=== PATIENT | female | born 1990 | race Asian ===

== ENCOUNTER 2022-07-02 11:06 | Outpatient (CLI) | payer BC, SELFPAY | END 2022-07-02 11:07 | disposition home or self-care (01) | PROVIDERS: PCP Nurse Practitioner Family; Visit Provider Nurse Practitioner Family | DX: D50.9 Iron deficiency anemia, unspecified (principal) | CPT/HCPCS: 83540; 83550; 84443 ==

== ENCOUNTER 2022-10-07 13:18 | Outpatient (CLI) | payer BC, SELFPAY ==
--- NOTE | 2022-10-07 13:00 | CRLHL7_ITS ---
For Patients: As a result of the Century Cures Act, medical imaging exams and procedure reports are released immediately into your electronic medical record. You may view this report before your referring provider. If you have questions, please contact your health care provider. INDICATION: First trimester scan, establish dates. COMPARISON: None. TECHNIQUE: Real-time castillo-scale imaging of the pelvis was performed. FINDINGS: Sonographic imaging demonstrates a single living intrauterine gestation. The embryo demonstrates a regular cardiac rate measuring 176 beats per minute. The embryo`s crown-rump length measurement of 3.3 cm corresponds to a gestational age of 10 weeks 2 days with a sonographic due date of 05/03/2023. There is a normal-appearing yolk sac. There are no gross abnormalities noted within the embryo at this early state of development. The gestational sac has a normal appearance. There is a 2.6 x 2.2 x 1.9 cm right-sided perigestational hemorrhage. The amount of fluid within the sac appears appropriate for gestational age. The cervix is closed. The myometrium appears normal. The ovaries are of normal size. Corpus luteal cyst left ovary. There are no suspicious fluid collections noted in the cul-de-sac. IMPRESSION: Single living intrauterine with sonographic gestational age measuring 10 weeks 2 days and sonographic due date 05/03/2023. Right-sided subchorionic hemorrhage measuring 2.6 x 2.2 x 1.9 cm. Dictated by Nemesio Bennett MD @ 10/07/2022 3:23:35 PM (Electronically Signed)
== END 2022-10-07 13:19 | disposition home or self-care (01) ==
LOC: US 13:19
PROVIDERS: PCP Nurse Practitioner Family; Visit Provider Registered Nurse
DX: Z34.91 Encounter for supervision of normal pregnancy, unspecified, first trimester (principal); O20.9 Hemorrhage in early pregnancy, unspecified; Z3A.10 10 weeks gestation of pregnancy
CPT/HCPCS: 76801; 86703; 86803; 86850; 86900; 86901; 87340; 87491; 87591

== ENCOUNTER 2022-10-07 14:41 | Outpatient (CLI) | payer BC, SELFPAY ==
[2022-10-07 18:47] LABS: Chlamydia DNA Amplified* NOT DETECTED (No Detected); GC DNA Amplified* NOT DETECTED (No Detected)
== END 2022-10-07 14:42 | disposition home or self-care (01) ==
PROVIDERS: PCP Nurse Practitioner Family; Visit Provider Registered Nurse
DX: Z34.91 Encounter for supervision of normal pregnancy, unspecified, first trimester (principal); Z3A.10 10 weeks gestation of pregnancy
CPT/HCPCS: 86592; 86703; 86762; 86787; 86803; 86850; 86900; 86901; 87086; 87340; 87491; 87591

== ENCOUNTER 2022-12-10 09:15 | Outpatient (CLI) | payer BC, SELFPAY ==
--- NOTE | 2022-12-10 09:15 | CRLHL7_ITS ---
For Patients: As a result of the Century Cures Act, medical imaging exams and procedure reports are released immediately into your electronic medical record. You may view this report before your referring provider. If you have questions, please contact your health care provider. INDICATION: Evaluate anatomy. COMPARISON: 10.07.22 TECHNIQUE: Real time castillo scale imaging of the fetus was performed as well as color Doppler analysis of the umbilical vessels. FINDINGS: Sonographic imaging demonstrates a single living intrauterine gestation. Fetus demonstrates a regular cardiac rate of 154 beats per minute. Fetus has a longitudinal breech position. The placenta lies posteriorly with complete placenta previa. Amniotic fluid volume appears normal. Single deepest vertical pocket: 4.1 cm. The cervix is closed and measures 3.5 cm in length. The composite ultrasound gestational age is calculated at 18 weeks 4 days with an estimated sonographic due date of 05/09/2023. The estimated weight is 242 grams which lies at the less than 3rd %. The following biometric measurements were obtained: Biparietal diameter: 4.0 cm/18 weeks 0 days less than 3rd% Head circumference: 15.6 cm/18 weeks 4 days 3rd% Abdominal circumference: 13.2 cm/18 weeks 5 days 13th% Femur length: 2.7 cm/18 weeks 2 days 4th% The HC/AC ratio measures: 1.18 range (1.09-1.27) On anatomic survey, there is a normal appearance of the cerebral ventricles, cavum septi pellucidi, cisterna magna and cerebellum. The nose, lips, and facial profile appear normal. The cervical, thoracic and lumbar spine are well visualized and appear normal. There is a normal four-chamber heart view and the left and right ventricular outflow tracts appear normal. The diaphragm and stomach appear normal. The kidneys and bladder also appear normal. There is a normal three-vessel cord and cord insertion site. The four extremities appear normal. IMPRESSION: Sonographic gestational age 18 weeks 4 days and sonographic due date 05/09/2023. Sonographic age 9 days behind the clinical age. No intrinsic abnormalities noted on anatomic survey. Posterior placenta with complete previa. Estimated weight less than 3rd percentile. Abdominal circumference 13th percentile. BPD less than 3rd percentile, HC 3rd percentile, FL 4th percentile. Dictated by Nemesio Bennett MD @ 12/10/2022 10:35:06 AM (Electronically Signed)
== END 2022-12-10 09:16 | disposition home or self-care (01) ==
LOC: US 09:15
PROVIDERS: PCP Nurse Practitioner Family; Visit Provider Advanced Practice Midwife
DX: Z34.92 Encounter for supervision of normal pregnancy, unspecified, second trimester (principal); Z3A.19 19 weeks gestation of pregnancy
CPT/HCPCS: 76805; 76817; 76820

== ENCOUNTER 2023-02-15 11:29 | Outpatient (CLI) | payer BC, SELFPAY | END 2023-02-15 11:30 | disposition home or self-care (01) | LOC: NFLDREF 11:32 | PROVIDERS: PCP Nurse Practitioner Family; Visit Provider Advanced Practice Midwife | DX: Z34.93 Encounter for supervision of normal pregnancy, unspecified, third trimester (principal); Z3A.29 29 weeks gestation of pregnancy | CPT/HCPCS: 86592; 86850 ==

== ENCOUNTER 2023-02-23 08:29 | Outpatient (CLI) | payer BC, SELFPAY | END 2023-02-23 08:30 | disposition home or self-care (01) | LOC: NFLDREF 02-26 18:39 | PROVIDERS: PCP Nurse Practitioner Family; Referring Provider Nurse Practitioner Family; Visit Provider Advanced Practice Midwife | DX: Z34.92 Encounter for supervision of normal pregnancy, unspecified, second trimester (principal) | CPT/HCPCS: 82951; 82952 ==

== ENCOUNTER 2023-03-24 11:34 | Outpatient (CLI) | payer BC, SELFPAY | END 2023-03-24 11:35 | disposition home or self-care (01) | LOC: NFLDREF 03-26 10:28 | PROVIDERS: PCP Nurse Practitioner Family; Referring Provider Nurse Practitioner Family; Visit Provider Advanced Practice Midwife | DX: Z34.93 Encounter for supervision of normal pregnancy, unspecified, third trimester (principal) | CPT/HCPCS: 82728 ==

== ENCOUNTER 2023-04-08 14:02 | Outpatient (CLI) | payer BC, SELFPAY ==
--- NOTE | 2023-04-08 14:00 | CRLHL7_ITS ---
For Patients: As a result of the Century Cures Act, medical imaging exams and procedure reports are released immediately into your electronic medical record. You may view this report before your referring provider. If you have questions, please contact your health care provider. INDICATION: growth restriction COMPARISON: none TECHNIQUE: Real time castillo scale imaging of the fetus was performed as well as color Doppler and spectral Doppler analysis of the umbilical artery. Without non-stress testing. FINDINGS: Sonographic imaging demonstrates a single living intrauterine gestation. Fetus demonstrates a regular cardiac rate of 165 beats per minute. Fetus has a vertex position. The umbilical artery demonstrates adequate diastolic blood flow. The S/D ratio measures 2.4. The amniotic fluid volume appears normal and there is a single deepest pocket measurement of 6.3 cm. The fetus was active and demonstrated normal breathing movements. There was normal flexion and extension of the trunk and extremities. IMPRESSION: Normal biophysical profile score of 8 out of 8. Dictated by Nemesio Bennett MD @ 04/08/2023 3:06:27 PM (Electronically Signed)
== END 2023-04-08 14:03 | disposition home or self-care (01) ==
LOC: US 14:03
PROVIDERS: PCP Nurse Practitioner Family; Visit Provider Advanced Practice Midwife
DX: O36.5930 Maternal care for other known or suspected poor fetal growth, third trimester, not applicable or unspecified (principal)
CPT/HCPCS: 76819; 76820; 82728

== ENCOUNTER 2023-04-08 15:30 | Outpatient (CLI) | payer BC, SELFPAY ==
[2023-04-09 13:36] LABS: Strep B DNA Probe Positive (Negative); Strep B Susceptibility Needed? No
== END 2023-04-08 15:31 | disposition home or self-care (01) ==
LOC: NFLDREF 15:31
PROVIDERS: PCP Nurse Practitioner Family; Visit Provider Advanced Practice Midwife
DX: Z34.93 Encounter for supervision of normal pregnancy, unspecified, third trimester (principal)
CPT/HCPCS: 82728; 87081; 87653

== ENCOUNTER 2023-04-14 08:43 | Outpatient (CLI) | payer BC, SELFPAY ==
--- NOTE | 2023-04-14 08:45 | CRLHL7_ITS ---
For Patients: As a result of the Century Cures Act, medical imaging exams and procedure reports are released immediately into your electronic medical record. You may view this report before your referring provider. If you have questions, please contact your health care provider. INDICATION: IUGR TECHNIQUE: Limited transabdominal two-dimensional castillo-scale ultrasound examination. COMPARISON: 04/08/2023 FINDINGS: There is a living fetus in vertex lie with gestational age of 37 weeks 2 days by LMP with EDC 05/03/2023. The biophysical profile score is 8/8. The heart rate is measured at 131 beats per minute and the rhythm appears regular. The amniotic fluid volume is within normal limits with several deep spot of 6.9 cm. The placenta is posterior and superior to the cervical os. There is no evidence of previa. Cord arterial S/D = 2.8. IMPRESSION: 1. Living fetus in vertex lie with gestational age of 37 weeks 2 days by LMP and EDC of 05/03/2023. 2. Biophysical profile score is 8/8. Dictated by Ganesh Strong MD @ 04/15/2023 2:46:11 PM (Electronically Signed)
== END 2023-04-14 08:44 | disposition home or self-care (01) ==
LOC: US 08:44
PROVIDERS: PCP Nurse Practitioner Family; Visit Provider Advanced Practice Midwife
DX: O36.5930 Maternal care for other known or suspected poor fetal growth, third trimester, not applicable or unspecified (principal); Z3A.37 37 weeks gestation of pregnancy
CPT/HCPCS: 76819; 76820

== ENCOUNTER 2023-04-25 19:13 | Inpatient (IN) | payer BC, SELFPAY ==
--- OUTSIDE RECORDS SUMMARY | 2023-04-25 18:26 | XMS_ITS | Referral Summary ---
Author Name Unknown Organization [place] Address [address] [facility] [place] [address] Care Team Providers Care Radiation Therapy Technician Name Role Phone No Ref-Primary, Physician Primary Care Provider Odalys Holguin MD Unavailable Encounters Date Type Department Care Team Description 04/21/2023 Travel 04/21/2023 9:58 AM ANHYDROUS AMMONIA PRODUCTION SUPERVISOR - 04/21/2023 11:59 PM ANHYDROUS AMMONIA PRODUCTION SUPERVISOR Hospital Encounter [facility] Maternal Medicine [facility] [address] [place] [address] Juan Alberto Bañuelos MD affected by growth restriction Discharge Disposition: Home or Self Care 04/21/2023 9:45 AM ANHYDROUS AMMONIA PRODUCTION SUPERVISOR Office Visit [facility] Medicine [facility] [address] [place] [address] Juan Alberto Bañuelos MD affected by growth restriction (Primary Dx) 04/01/2023 Travel 04/01/2023 10:46 AM ANHYDROUS AMMONIA PRODUCTION SUPERVISOR - 04/01/2023 11:59 PM ANHYDROUS AMMONIA PRODUCTION SUPERVISOR Hospital Encounter [facility] Maternal Medicine [facility] [address] [place] [address] Annel Holguin MD Yamamura, Yasuko, MD affected by growth restriction Discharge Disposition: Home or Self Care 04/01/2023 10:30 AM ANHYDROUS AMMONIA PRODUCTION SUPERVISOR Office Visit [facility] Maternal Medicine [facility] [address] [place] [address] Juan Alberto Bañuelos MD Yamamura, Yasuko, MD affected by growth restriction (Primary Dx) 03/24/2023 Travel 03/24/2023 8:16 AM ANHYDROUS AMMONIA PRODUCTION SUPERVISOR - 03/24/2023 11:59 PM ANHYDROUS AMMONIA PRODUCTION SUPERVISOR Hospital Encounter [facility] [place] [address] [place] [address] Annel Holguin MD Rauk, Phillip Neil, MD affected by growth restriction Discharge Disposition: Home or Self Care 03/24/2023 8:15 AM ANHYDROUS AMMONIA PRODUCTION SUPERVISOR Office Visit [facility] Medicine [facility] [address] [place] [address] Juan Alberto Bañuelos MD affected by growth restriction (Primary Dx) 03/19/2023 Travel 03/19/2023 2:33 PM ANHYDROUS AMMONIA PRODUCTION SUPERVISOR - 03/19/2023 11:59 PM ANHYDROUS AMMONIA PRODUCTION SUPERVISOR Hospital Encounter [facility] Maternal Medicine [facility] [address] [place] [address] Annel Holguin MD Jones, Rihcard Russo MD affected by growth restriction Discharge Disposition: Home or Self Care 03/19/2023 2:30 PM ANHYDROUS AMMONIA PRODUCTION SUPERVISOR Office Visit [facility] Medicine [facility] [address] [place] [address] Juan Alberto Bañuelos MD Jones, Richard Russo MD affected by growth restriction 03/10/2023 Travel 03/10/2023 11:11 AM ANHYDROUS AMMONIA PRODUCTION SUPERVISOR - 03/10/2023 11:59 PM ANHYDROUS AMMONIA PRODUCTION SUPERVISOR Hospital Encounter [facility] Maternal Medicine [facility] [address] [place] [address] Lyssa Beck MD Burn, Martina, MD affected by growth restriction Discharge Disposition: Home or Self Care 03/10/2023 11:15 AM ANHYDROUS AMMONIA PRODUCTION SUPERVISOR Office Visit [facility] Medicine [facility] [address] [place] [address] Juan Alberto Bañuelos MD Burn, Martina, MD affected by growth restriction 03/03/2023 Travel 03/03/2023 1:25 PM ANHYDROUS AMMONIA PRODUCTION SUPERVISOR - 03/03/2023 11:59 PM ANHYDROUS AMMONIA PRODUCTION SUPERVISOR Hospital Encounter [facility] Maternal Medicine [facility] [address] [place] [address] Lyssa Beck MD Rauk, Phillip Neil, MD affected by growth restriction Discharge Disposition: Home or Self Care 03/03/2023 1:45 PM ANHYDROUS AMMONIA PRODUCTION SUPERVISOR Office Visit [facility] Maternal Medicine [place] [address] [place] [address] Juan Alberto Bañuelos MD affected by growth restriction (Primary Dx) 02/24/2023 Travel 02/24/2023 1:30 PM ANHYDROUS AMMONIA PRODUCTION SUPERVISOR - 02/24/2023 11:59 PM ANHYDROUS AMMONIA PRODUCTION SUPERVISOR Hospital Encounter [facility] Medicine [place] [address] [place] [address] Lyssa Beck MD Burn, Sabrina, MD affected by growth restriction Discharge Disposition: Home or Self Care 02/24/2023 2:15 PM ANHYDROUS AMMONIA PRODUCTION SUPERVISOR Office Visit [facility] Maternal Medicine [place] [address] [place] [address] Juan Alberto Bañuelos MD Burn, Sabrina, MD affected by growth restriction 02/17/2023 Travel 02/17/2023 10:45 AM ANHYDROUS AMMONIA PRODUCTION SUPERVISOR Office Visit [facility] Maternal Medicine [place] [address] [place] [address] Juan Alberto Bañuelos MD Yamamura, Yasuko, MD affected by growth restriction (Primary Dx) 02/17/2023 10:13 AM ANHYDROUS AMMONIA PRODUCTION SUPERVISOR - 02/17/2023 11:59 PM ANHYDROUS AMMONIA PRODUCTION SUPERVISOR Hospital Encounter [facility] Maternal Medicine [place] [address] [place] [address] Juan Alberto Bañuelos MD Yamamura, Yasuko, MD affected by growth restriction Discharge Disposition: Home or Self Care 01/27/2023 Travel 01/27/2023 10:41 AM CDT - 01/27/2023 11:59 PM CDT Hospital Encounter [facility] Maternal Medicine [facility] [address] [place] [address] Juan Alberto Bañuelos MD affected by growth restriction Discharge Disposition: Home or Self Care 01/27/2023 10:30 AM CDT Office Visit [facility] Medicine [facility] [address] [facility] [address] [place] [address] JuanA lberto Bañuelos MD affected by growth restriction (Primary Dx) from Last 3 Months Allergies No known active allergies Medications Medication Sig Dispensed Refills Start Date End Date Status vitamin iron-folic acid 27mg-0.8mg ( S) 27 mg iron- 800 mcg Tab tablet [ VITAMIN IRON-FOLIC ACID 27MG-0.8MG ( S) 27 MG IRON- 800 MCG TAB TABLET] Take 1 tablet by mouth daily. 0 09/21/2016 Active Social History Tobacco Use Types Packs/Day Years Used Date Smoking Tobacco: Never Tobacco Cessation:Counseling Given: Not Answered Adolescent Education Answer Date Record ed Getting School Help Needed Not on file 12/26 Estimated Date of Delivery Comme nts Yes 05/03/2023 Based on Ultraso und Sex and Gender Information Value Date Recorded Sex Assigned at Not on file Gender Identity Not on file Sexual Orientation Not on file Last Filed Vital Signs Vital Sign Reading Time Taken Comments Blood Pressure 87/47 04/21/2023 10:27 AM ANHYDROUS AMMONIA PRODUCTION SUPERVISOR Pulse 56 04/21/2023 10:27 AM ANHYDROUS AMMONIA PRODUCTION SUPERVISOR Temperature - - Respiratory Rate - - Oxygen Saturation 99% 04/21/2023 10:27 AM ANHYDROUS AMMONIA PRODUCTION SUPERVISOR Inhaled Oxygen Concentration - - Weight 50.8 kg (112 lb) 08/05/2017 3:14 PM CDT Height - - Body Mass Index - - Plan of Treatment Not on file Procedures Procedure Name Priority Date/Time Associated Diagnosis Comments [facility] COMPREHENSIVE SINGLE F/U Routine 04/21/2023 10:50 AM ANHYDROUS AMMONIA PRODUCTION SUPERVISOR affected by growth restriction [facility] US COMPREHENSIVE SINGLE F/U Routine 04/01/2023 12:09 PM ANHYDROUS AMMONIA PRODUCTION SUPERVISOR affected by growth restriction [facility] US OB LIMITED SINGLE/MULTIPLE Routine 03/24/2023 8:56 AM ANHYDROUS AMMONIA PRODUCTION SUPERVISOR affected by growth restriction [facility] US OB LIMITED SINGLE/MULTIPLE Routine 03/19/2023 3:22 PM ANHYDROUS AMMONIA PRODUCTION SUPERVISOR affected by growth restriction [facility] US COMPREHENSIVE SINGLE F/U Routine 03/10/2023 12:16 PM ANHYDROUS AMMONIA PRODUCTION SUPERVISOR affected by growth restriction [facility] US OB LIMITED SINGLE/MULTIPLE Routine 03/03/2023 2:16 PM ANHYDROUS AMMONIA PRODUCTION SUPERVISOR affected by growth restriction [facility] US OB LIMITED SINGLE/MULTIPLE Routine 02/24/2023 2:33 PM ANHYDROUS AMMONIA PRODUCTION SUPERVISOR affected by growth restriction [facility] US COMPREHENSIVE SINGLE F/U Routine 02/17/2023 11:17 AM ANHYDROUS AMMONIA PRODUCTION SUPERVISOR affected by growth restriction [facility] US COMPREHENSIVE SINGLE F/U Routine 01/27/2023 11:36 AM CDT affected by growth restriction from Last 3 Months Results * Maternal US Comprehensive Single F/U (04/21/2023 10:50 AM ANHYDROUS AMMONIA PRODUCTION SUPERVISOR) Only the most recent of5 resultswithin the time period is included. Anatomical Region Laterality Modality Ultrasound 04/21/2023 10:1 3 AM ANHYDROUS AMMONIA PRODUCTION SUPERVISOR Impressions 04/21/2023 10:54 AM ANHYDROUS AMMONIA PRODUCTION SUPERVISOR IMPRESSION ----- 1) Growth parameters and estimated weight were consistent with asymmetric intrauterine growth restriction. 2) The anatomic survey is limited due to late gestational age. 3) Normal amniotic fluid volume. 4) Normal umbilical artery doppler flow studies. 5) Reactive NST without decelerations. Narrative 04/21/2023 10:54 AM ANHYDROUS AMMONIA PRODUCTION SUPERVISOR ?Comp Follow Up ----- Pat. Name: CESAR ARROYO ? Study Date: ??04/21/2023 10:13am Pat. NO: ??[id number] ?Referring ??MD: TORITO MUSTAFA Site: [facility] ? Tennis Net Maker: Elissa Clarke RDMS : ??1990 ?Age: ?? 32 ----- INDICATION ----- growth restriction (FGR) METHOD ----- Transabdominal ultrasound examination. View: Sufficient ----- [place] . Number of fetuses: 1 DATING ----- ? Date ?Details ?Gest. age ?KENDRICK LMP ?07/24/2022 ?Cycle: irregular cycle ? 38 w + 5 d ? 04/30/2023 Prior assessment ? 10/07/2022 ?GA: 10 w + 2 d ? 38 w + 2 d ? 05/03/2023 U/S ? 04/21/2023 ? based upon AC, BPD, Femur, HC ?35 w + 5 d ? 05/21/2023 Assigned dating ?Dating performed on 04/21/2023, based on the prior assessment (on 10/07/2022) ?38 w + 2 d ? 05/03/2023 GENERAL EVALUATION ----- Cardiac activity present. FHR 136 bpm. movements present. Presentation cephalic. Placenta Posterior. Umbilical cord 3 vessel cord. Amniotic fluid Amount of AF: normal. MVP 7.6 cm. BIOMETRY ----- Main Biometry: BPD ?86.3 ?mm ? 34w 6d ?Hadronald OFArlyn ?116.9 ?mm ?-/- ?Nicolaides HC ?324.0 ?mm ?36w 5d ?Hadlock AC ?315.8 ?mm ?35w 4d ?6% ?Hadlock Femur ?69.0 ? mm ?35w 3d ?Hadlock Humerus ?60.7 ?mm ? 35w 1d ?Aminah Weight Calculation: EFW ? 2,702 ?g ? 9% ? Hadlock EFW (lb,oz) ? 5 lb 15 ? oz EFW by ?Hadlock ([id number]) Head / Face / Neck Biometry: Tattoo Designer ? 2.8 ? mm ANATOMY ----- The following structures appear normal: Head / Neck ? Cranium. Head size. Head shape. Lateral ventricles. Midline falx. Cavum septi pellucidi. Thalami. Face ? Lips. Profile. Nose. Heart / Thorax ?4-chamber view. RVOT view. LVOT view. 4-[id number]-qykbxrj view. ? Diaphragm. Abdomen ? Stomach. Kidneys. Bladder. Spine ?Cervical spine. Thoracic spine. Lumbar spine. Sacral spine. The following structures were documented previously: Head / Neck ? Cerebellum. Cisterna magna. Gender: female. DOPPLER ----- Umbilical Artery: normal PI ?1.11 ?95% ? Jesus HR ?136 ? bpm MATERNAL STRUCTURES ----- Cervix ?Not visualized Right Ovary ?Not examined Left Ovary ?Not examined NON STRESS TEST ----- NST interpretation: reactive. Test duration 20 min. Baseline FHR 135 bpm. Baseline variability: moderate. Accelerations: present. Decelerations: absent. Uterine activity: absent. Acoustic stimulation: no RECOMMENDATION ----- We discussed the findings on today's ultrasound with the patient. Return to primary provider for continued care. Thank-you for the opportunity to participate in the care of this patient. If you have questions regarding today's evaluation or if we can be of further service, please contact the [facility]. anomalies may be present but not detected Procedure Note Juan Alberto Bañuelos MD - 04/21/2023 Comp Follow Up ----- Pat. Name: CESAR ARROYO Study Date: 04/21/2023 10:13am Pat. NO: [id number] Referring MD: TORITO MUSTAFA Site: [facility] Tennis Net Maker: Elissa Clarke RDMS : 1990 Age: 32 ----- INDICATION ----- growth restriction (FGR) METHOD ----- Transabdominal ultrasound examination. View: Sufficient ----- [place] . Number of fetuses: 1 DATING ----- DateDetailsGest. age KENDRICK LMP 07/24/2022ycle: irregular cycle38 w + 5 d 04/30/2023 Prior assessment 10/07/2022 GA: 10 w+ 2 d38 w + 2 d 05/03/2023 U/S 04/21/2023ased upon AC, BPD, Femur, HC35 w + 5 d 05/21/2023 Assigned dating Dating performed on 04/21/2023, based onthe prior assessment (on 10/07/2022) 38 w + 2 05/03/2023 GENERAL EVALUATION ----- Cardiac activity present. FHR 136 bpm. movements present. Presentation cephalic. Placenta Posterior. Umbilical cord 3 vessel cord. Amniotic fluid Amount of AF: normal. MVP 7.6 cm. BIOMETRY ----- Main Biometry: BPD 86.3 mm34w 6d Hadlock OFD 116.9 mm-/- Nicolaides HC 324.0 mm36w 5d Hadlock AC 315.8 mm35w 4d 6% Hadlock Femur 69.0 mm35w 3d Hadlock Humerus 60.7 mm35w 1d Aminah Weight Calculation: EFW 2,702 g9% Hadlock EFW (lb,oz) 5 lb 15 oz EFW by Hadlock ([id number]) Head / Face / Neck Biometry: Tattoo Designer 2.8 mm ANATOMY ----- The following structures appear normal: Head / Neck Cranium. Head size. Head shape.Lateral ventricles. Midline falx. Cavum septi pellucidi. Thalami. Face Lips. Profile. Nose. Heart / Thorax 4-chamber view. RVOT view. LVOT view.[id number] view. Diaphragm. Abdomen Stomach. Kidneys. Bladder. Spine Cervical spine. Thoracic spine.Lumbar spine. Sacral spine. The following structures were documented previously: Head / Neck Cerebellum. Cisterna magna. Gender: female. DOPPLER ----- Umbilical Artery: normal PI 1.1195% Jesus HR 136 bpm MATERNAL STRUCTURES ----- Cervix Not visualized Right Ovary Not examined Left Ovary Not examined NON STRESS TEST ----- NST interpretation: reactive. Test duration 20 min. Baseline FHR 135 bpm.Baseline variability: moderate. Accelerations: present. Decelerations:absent. Uterine activity: absent. Acoustic stimulation: no RECOMMENDATION ----- We discussed the findings on today's ultrasound with the patient. Return to primary provider for continued care. Thank-you for the opportunity to participate in the care of this patient.If you have questions regarding today's evaluation or if we can be offurther service, please contact the [facility]. anomalies may be present but not detected IMPRESSION ----- 1) Growth parameters and estimated weight were consistent withasymmetric intrauterine growth restriction. 2) The anatomic survey is limited due to late gestational age. 3) Normal amniotic fluid volume. 4) Normal umbilical artery doppler flow studies. 5) Reactive NST without decelerations. Lyssa Beck MD [facility] US ORDERABLE S * Maternal US OB Limited Single/Multiple (03/24/2023 8:56 AM ANHYDROUS AMMONIA PRODUCTION SUPERVISOR) Only the most recent of4 resultswithin the time period is included. Anatomical Region Laterality Modality Ultrasound 03/24/2023 8:43 AM ANHYDROUS AMMONIA PRODUCTION SUPERVISOR Impressions 03/24/2023 8:59 AM ANHYDROUS AMMONIA PRODUCTION SUPERVISOR IMPRESSION ----- 1) Normal amniotic fluid volume. 2) Normal umbilical artery doppler flow studies. 3) Reactive NST without decelerations. Narrative 03/24/2023 8:59 AM ANHYDROUS AMMONIA PRODUCTION SUPERVISOR ?Limited ----- Pat. Name: CESAR ARROYO ? Study Date: ??03/24/2023 8:43am Pat. NO: ??[id number] ?Referring ??MD: TORITO MUSTAFA Site: [facility] ? Tennis Net Maker: Trisha Calle RDMS : ??1990 ?Age: ?? 32 ----- INDICATION ----- Growth Restriction (FGR) METHOD ----- Transabdominal ultrasound examination. View: Sufficient ----- [place] . Number of fetuses: 1 DATING ----- ? Date ?Details ?Gest. age ?KENDRICK LMP ?07/24/2022 ?Cycle: regular cycle ?34 w + 5 d ? 04/30/2023 Prior assessment ? 10/07/2022 ?GA: 10 w + 2 d ? 34 w + 2 d ? 05/03/2023 Assigned dating ?Dating performed on 03/03/2023, based on the prior assessment (on 10/07/2022) ? 34 w + 2 d ? 05/03/2023 GENERAL EVALUATION ----- Cardiac activity present. FHR 140 bpm. movements visualized. Presentation cephalic. Placenta Posterior. Umbilical cord previously studied. Amniotic fluid Amount of AF: normal. MVP 6.1 cm. DOPPLER ----- Umbilical Artery: normal PI ?1.13 ?91% ? Jesus HR ?133 ? bpm MATERNAL STRUCTURES ----- Right Ovary ?Not examined Left Ovary ?Not examined NON STRESS TEST ----- NST interpretation: reactive. Test duration 21 min. Baseline FHR 130 bpm. Baseline variability: moderate. Accelerations: present. Decelerations: absent. Uterine activity: absent. Acoustic stimulation: no RECOMMENDATION ----- We discussed the findings on today's ultrasound with the patient. The patient is scheduled to continue weekly FGR surveillance. Return to primary provider for continued care. Thank-you for the opportunity to participate in the care of this patient. If you have questions regarding today's evaluation or if we can be of further service, please contact the [facility]. anomalies may be present but not detected Procedure Note Juan Alberto Bañuelos MD - 03/24/2023 Limited ----- Pat. Name: CESAR ARROYO Study Date: 03/24/2023 8:43am Pat. NO: [id number] Referring MD: TORITO MUSTAFA Site: [facility] Tennis Net Maker: Trisha Calle RDMS : 1990 Age: 32 ----- INDICATION ----- Growth Restriction (FGR) METHOD ----- Transabdominal ultrasound examination. View: Sufficient ----- [place] . Number of fetuses: 1 DATING ----- DateDetailsGest. age KENDRICK LMP 07/24/2022ycle: regular cycle34 w + 5 d 04/30/2023 Prior assessment 10/07/2022 GA: 10 w+ 2 d34 w + 2 d 05/03/2023 Assigned dating Dating performed on 03/03/2023, based onthe prior assessment (on 10/07/2022) 34 w + 2 05/03/2023 GENERAL EVALUATION ----- Cardiac activity present. FHR 140 bpm. movements visualized. Presentation cephalic. Placenta Posterior. Umbilical cord previously studied. Amniotic fluid Amount of AF: normal. MVP 6.1 cm. DOPPLER ----- Umbilical Artery: normal PI 1.1391% Jesus HR 133 bpm MATERNAL STRUCTURES ----- Right Ovary Not examined Left Ovary Not examined NON STRESS TEST ----- NST interpretation: reactive. Test duration 21 min. Baseline FHR 130 bpm.Baseline variability: moderate. Accelerations: present. Decelerations:absent. Uterine activity: absent. Acoustic stimulation: no RECOMMENDATION ----- We discussed the findings on today's ultrasound with the patient. The patient is scheduled to continue weekly FGR surveillance. Return to primary provider for continued care. Thank-you for the opportunity to participate in the care of this patient.If you have questions regarding today's evaluation or if we can be offurther service, please contact the [facility]. anomalies may be present but not detected IMPRESSION ----- 1) Normal amniotic fluid volume. 2) Normal umbilical artery doppler flow studies. 3) Reactive NST without decelerations. Annel Holguin MD [facility] ORDERABLE S from Last 3 Months Care Teams Radiation Therapy Technician Relationship Specialty Start Date End Date No Ref-Primary, Physician PCP - General 12/25/22 Odalys Holguin MD [address] [facility] [address] [place] [address] Assigned OBGYN Provider 03/06/23
--- OUTSIDE RECORDS SUMMARY | 2023-04-25 18:26 | XMS_ITS | Encounter Summary ---
Author Name Unknown Organization [place] Address [address] [place] [address] Care Team Providers Care Field Advisor Name Role Phone No Ref-Primary, Physician Primary Care Provider Odalys Holguin MD Unavailable Reason for Referral * Consultation (Routine) - Pending Review Specialty Diagnoses / Procedures Referred By Contac t Referred To Contact Diagnoses affected by growth restriction Lyssa Beck MD [address] [place] [address] Referral ID Status Reason Start Date Expiration Date V isits Requested Visits Authorized [id number] Pending Review 04/01/2023 03/31/2024 5 5 Question Answer CTG/NST Yes T LINE SUPERVISOR * Diagnostic Imaging Ultrasound (Routine) - Pending Review Specialty Diagnoses / Procedures Referred By Contac t Referred To Contact Radiology. Diagnoses affected by growth restriction Procedures Maternal US Comprehensive Single F/U Lyssa Beck MD [address] [place] [address] Referral ID Status Reason Start Date Expiration Date V isits Requested Visits Authorized [id number] Pending Review 04/01/2023 03/31/2024 1 1 T LINE SUPERVISOR * Diagnostic Imaging Ultrasound (Routine) - Pending Review Specialty Diagnoses / Procedures Referred By Contac t Referred To Contact Radiology. Diagnoses affected by growth restriction Procedures Maternal US OB Limited Single/Multiple Lyssa Beck MD [address] [place] [address] Referral ID Status Reason Start Date Expiration Date V isits Requested Visits Authorized [id number] Pending Review 04/01/2023 03/31/2024 1 1 T LINE SUPERVISOR Reason for Visit * Reason Comments Ultrasound NST/RL2/UAR-FGR * Consultation (Routine: Next available opening) - Pending Review Specialty Diagnoses / Procedures Referred By Contac t Referred To Contact Diagnoses affected by growth restriction Juan Alberto Bañuelos MD [address] [place] [address] Referral ID Status Reason Start Date Expiration Date V isits Requested Visits Authorized [id number] Pending Review 01/05/2023 01/05/2024 14 14 Encounter Details Date Type Department Care Team (Late st Contact Info) Description 04/01/2023 10:30 AM FRONT LINE SUPERVISOR Office Visit [facility] [place] [address] [place] [address] Juan Alberto Bañuelos MD [address] [place] [address] Lyssa Beck MD [address] [place] [address] affected by growth restriction (Primary Dx) Social History Tobacco Use Types Packs/Day Years Used Date Smoking Tobacco: Never Adolescent Education Answer Date Record ed Getting School Help Needed Not on file 12/26 Estimated Date of Delivery Comme nts Yes 05/03/2023 Based on Ultraso und Sex and Gender Information Value Date Recorded Sex Assigned at Not on file Gender Identity Not on file Sexual Orientation Not on file documented as of this encounter Last Filed Vital Signs Vital Sign Reading Time Taken Comments Blood Pressure 104/57 04/01/2023 11:32 AM FRONT LINE SUPERVISOR Pulse 58 04/01/2023 11:32 AM FRONT LINE SUPERVISOR Temperature - - Respiratory Rate - - Oxygen Saturation 100% 04/01/2023 11:32 AM FRONT LINE SUPERVISOR Inhaled Oxygen Concentration - - Weight - - Height - - Body Mass Index - - documented in this encounter Progress Notes * Lyssa Beck MD - 04/01/2023 10:30 AM CST Please see Imaging tab under Chart Review for details of today's visit. Lyssa Beck T LINE SUPERVISOR documented in this encounter Nursing Notes * Agustina Echols, ANA MARIA - 04/01/2023 10:30 AM CST Patient presents to [facility] for NST/RL2/UAR at 35w3d due to FGR. Positive movement. Denies LOF, vaginal bleeding or cramping/contractions. SBAR given to MFM MD, see their note in Epic. T LINE SUPERVISOR documented in this encounter Plan of Treatment Scheduled Orders Name Type Priority Associated Diagnoses Orde r Schedule Maternal US OB Limited Single/Multiple Imaging Routine affected by growth restriction Expected: 04/29/2023 (Approximate), Expires: 04/01/2024 Scheduled Referrals Name Type Priority Associated Diagnoses Orde r Schedule [facility] Office Visit NST/CTG Referral Routine affected by growth restriction Weekly for 5 Occurrences starting 04/01/2023 until 04/01/2024 documented as of this encounter Results * Maternal US Comprehensive Single F/U (04/21/2023 10:50 AM FRONT LINE SUPERVISOR) Anatomical Region Laterality Modality Ultrasound 04/21/2023 10:1 3 AM FRONT LINE SUPERVISOR Impressions 04/21/2023 10:54 AM FRONT LINE SUPERVISOR IMPRESSION ----- 1) Growth parameters and estimated weight were consistent with asymmetric intrauterine growth restriction. 2) The anatomic survey is limited due to late gestational age. 3) Normal amniotic fluid volume. 4) Normal umbilical artery doppler flow studies. 5) Reactive NST without decelerations. Narrative 04/21/2023 10:54 AM FRONT LINE SUPERVISOR ?Comp Follow Up ----- Pat. Name: JOEY ARROYO ? Study Date: ??04/21/2023 10:13am Pat. NO: ??[id number] ?Referring ??: TORITO MUSTAFA Site: ??[facility] ? Rodent Control Worker: Elissa Clarke RDMS : ??1990 ?Age: ?? [...] Biometry: BPD ?86.3 ?mm ? 34w 6d ?Hadlock OFD ?116.9 ?mm ?-/- ?Nicolaides HC ?324.0 ?mm ?36w 5d ?Hadlock AC ?315.8 ?mm ?35w 4d ?6% ?Hadlock Femur ?69.0 ? mm ?35w 3d ?Hadlock Humerus ?60.7 ?mm ? 35w 1d ?Aminah Weight Calculation: EFW ? 2,702 ?g ? 9% ? Hadlock EFW (lb,oz) ? 5 lb 15 ? oz EFW by ?Hadlock ([id number]) Head / Face / Neck Biometry: Therapy Tech ? 2.8 ? mm ANATOMY ----- The following structures appear normal: Head / Neck ? Cranium. Head size. Head shape. Lateral ventricles. Midline falx. Cavum septi pellucidi. Thalami. Face ? Lips. Profile. Nose. Heart / Thorax ?4-chamber view. RVOT view. LVOT view. 1-gamowr-auatxnd view. ? Diaphragm. Abdomen ? Stomach. Kidneys. [...] 04/21/2023 Comp Follow Up ----- Pat. Name: JOEY ARROYO Study Date: 04/21/2023 10:13am Pat. NO: [id number] Referring MD: TORITO MUSTAFA Site: [facility] Rodent Control Worker: Elissa Clarke RDMS : 1990 Age: 32 [...] assessment (on 10/07/2022) 38 w + 2 d1/ GENERAL EVALUATION ----- Cardiac activity present. FHR 136 bpm. movements present. Presentation cephalic. Placenta Posterior. Umbilical cord 3 vessel cord. Amniotic fluid Amount of AF: normal. MVP 7.6 cm. BIOMETRY ----- Main Biometry: BPD 86.3 mm34w 6d Hadlock OFD 116.9 mm-/- Nicolaides HC 324.0 mm36w 5d Hadlock AC 315.8 mm35w 4d 6% Hadlock Femur 69.0 mm35w 3d Hadlock Humerus 60.7 mm35w 1d [facility] Weight Calculation: EFW 2,702 g9% Hadlock EFW (lb,oz) 5 lb 15 oz EFW by Hadlock ([id number]-FL) Head / Face / Neck Biometry: Therapy Tech 2.8 mm ANATOMY ----- The following structures appear normal: Head / Neck Cranium. Head size. Head shape.Lateral ventricles. Midline falx. Cavum septi pellucidi. Thalami. Face Lips. Profile. Nose. Heart / Thorax 4-chamber view. RVOT view. LVOT view.0-mnkdgi-zwaeppp view. Diaphragm. Abdomen Stomach. Kidneys. Bladder. Spine [...] Reactive NST without decelerations. Lyssa Beck MD [facility] US ORDERABLE S documented in this encounter Visit Diagnoses Diagnosis affected by growth restriction- Primary affected by growth restriction documented in this encounter Care Teams Field Advisor Relationship Specialty Start Date End Date No Ref-Primary, Physician PCP - General 12/25/22 Odalys Holguin MD [address] [place] [id number] Assigned OBGYN Provider 03/06/23 documented as of this encounter
--- OUTSIDE RECORDS SUMMARY | 2023-04-25 18:26 | XMS_ITS | Encounter Summary ---
Author Name Unknown Organization [place] Address [address] [place] [address] Care Team Providers Care Nicker And Breaker Name Role Phone No Ref-Primary, Physician Primary Care Provider Odalys Holguin MD Unavailable Reason for Referral * Diagnostic Imaging Ultrasound (Routine) - Pending Review Specialty Diagnoses / Procedures Referred By Contac t Referred To Contact Radiology. Diagnoses affected by growth restriction Procedures Maternal US Comprehensive Single F/U Annel Holguin MD [address] [facility] [address] [place] [id number] Referral ID Status Reason Start Date Expiration Date V isits Requested Visits Authorized [id number] Pending Review 03/10/2023 03/09/2024 1 1 KING MACHINE OPERATOR Reason for Visit * Diagnostic Imaging Ultrasound (Routine) - Pending Review Specialty Diagnoses / Procedures Referred By Contac t Referred To Contact Radiology. Diagnoses affected by growth restriction Procedures Maternal US Comprehensive Single F/U Annel Holguin MD [address] [place] [address] Referral ID Status Reason Start Date Expiration Date V isits Requested Visits Authorized [id number] Pending Review 03/10/2023 03/09/2024 1 1 Encounter Details Date Type Department Care Team (Latest Contact Info) Description 04/01/2023 10:46 AM CLICKING MACHINE OPERATOR - 04/01/2023 11:59 PM CLICKING MACHINE OPERATOR Hospital Encounter [facility] [place] [address] [place] [address] Annel Holguin MD [address] [place] [address] Lyssa Beck MD [address] [place] [address] affected by growth restriction Discharge Disposition: Home or Self Care Social History Tobacco Use Types Packs/Day Years [...] on file documented as of this encounter Medications at Time of Discharge Medication Sig Dispensed Refills Start Date End Date vitamin iron-folic acid 27mg-0.8mg ( S) 27 mg iron- 800 mcg Tab tablet [ VITAMIN IRON-FOLIC ACID 27MG-0.8MG ( S) 27 MG IRON- 800 MCG TAB TABLET] Take 1 tablet by mouth daily. 0 09/21/2016 documented as of this encounter Plan of Treatment Not on file documented as of this encounter Procedures Procedure Name Priority Date/Time Associated Diagnosis Comments [facility] US COMPREHENSIVE SINGLE F/U Routine 04/01/2023 12:09 PM CLICKING MACHINE OPERATOR affected by growth restriction documented in this encounter Results * Maternal US Comprehensive Single F/U (04/01/2023 12:09 PM CLICKING MACHINE OPERATOR) Anatomical Region Laterality Modality Ultrasound 04/01/2023 11:3 5 AM CLICKING MACHINE OPERATOR Impressions 04/01/2023 1:01 PM CLICKING MACHINE OPERATOR IMPRESSION ----- 1) Kebede intrauterine at 35w 3d gestational age. 2) None of the anomalies commonly detected by ultrasound were evident in the anatomic survey described above. 3) Growth parameters and estimated weight were consistent with growth restriction. 4) The amniotic fluid volume appeared normal. 5) The NST is reactive. 6) The umbilical artery Doppler is within normal limits. Narrative 04/01/2023 1:01 PM CLICKING MACHINE OPERATOR ?Comp Follow Up ----- Pat. Name: JOEY ARROYO ? Study Date: ??04/01/2023 11:35am Pat. NO: ??[id number] ?Referring ??MD: TORITO MUSTAFA Site: ??[facility] ? Rougher Operator: Elissa Clarke RDMS : ??1990 ?Age: ?? 32 ----- INDICATION ----- growth restriction (FGR) METHOD ----- Transabdominal ultrasound examination. View: Sufficient ----- Kebede . Number of fetuses: 1 DATING ----- ? Date ?Details ?Gest. age ?KENDRICK LMP ?07/24/2022 ?Cycle: regular cycle ?35 w + 6 d ? 04/30/2023 Prior assessment ? 10/07/2022 ?GA: 10 w + 2 d ? 35 w + 3 d ? 05/03/2023 U/S ? 04/01/2023 ? based upon AC, BPD, Femur, HC ?32 w + 5 d ? 05/22/2023 Assigned dating ?Dating performed on 04/01/2023, based on the prior assessment (on 10/07/2022) ?35 w + 3 d ? 05/03/2023 GENERAL EVALUATION ----- Cardiac activity present. FHR 142 bpm. movements present. Presentation cephalic. Placenta Posterior. Umbilical cord 3 vessel cord. Amniotic fluid Amount of AF: normal. MVP 6.1 cm. BIOMETRY ----- Main Biometry: BPD ?78.6 ?mm ? 31w 4d ?Hadlock OFD ?105.6 ?mm ? 31w 2d ? Nicolaides HC ?292.9 ?mm ?32w 2d ?Hadlock Cerebellum tr ?46.6 ? mm ?-/- ?Nicolaides AC ?293.4 ?mm ?33w 2d ?8% ?Hadlock Femur ?65.1 ? mm ?33w 4d ?Hadlock Humerus ?56.3 ?mm ? 32w 5d ?Aminah Weight Calculation: EFW ? 2,124 ?g ? 6% ? Hadlock EFW (lb,oz) ? 4 lb 11 ? oz EFW by ?Hadlock ([id number]-[id number]-FL) Head / Face / Neck Biometry: Tech Writer ? 3.9 ? mm CM ?4.6 ? mm ANATOMY ----- The following structures appear normal: Head / Neck ? Cranium. Head size. Head shape. Lateral ventricles. Midline falx. Cavum septi pellucidi. Cerebellum. Cisterna magna. Thalami. Face ? Lips. Profile. Nose. Heart / Thorax ?4-chamber view. RVOT view. LVOT view. 8-lgbvrd-xjkbkgg view. ? Diaphragm. Abdomen ? Stomach. Kidneys. Bladder. Spine ?Cervical spine. Thoracic spine. Lumbar spine. Sacral spine. Gender: female. DOPPLER ----- Umbilical Artery: normal PI ?1.02 ?82% ?Jesus HR ?147 ? bpm MATERNAL STRUCTURES ----- Cervix ?Not visualized Right Ovary ?Not examined Left Ovary ?Not examined NON STRESS TEST ----- NST interpretation: reactive. Test duration 40 min. Baseline FHR 130 bpm. Baseline variability: moderate. Accelerations: present. Decelerations: absent. Uterine activity: absent RECOMMENDATION ----- We discussed the findings on today's ultrasound with the patient. Continue surveillance with weekly NST, amniotic fluid and UA Doppler assessment and a repeat assessment of growth will be scheduled in 3 weeks if Joannaporn remains undelivered (delivery recommended at [id number]). Return to primary provider for continued care. Thank-you for the opportunity to participate in the care of this patient. If you have questions regarding today's evaluation or if we can be of further service, please contact the [facility]. anomalies may be present but not detected I spent a total of 10 minutes on the date of this encounter including preparing to see the patient (reviewing medical records/tests), in direct dhax-wp-paip contact with the patient during her visit with the majority spent counseling and discussing the plan of care and documenting the visit in the electronic medical record. Please see note for details. Procedure Note Lyssa Beck MD - 04/01/2023 Comp Follow Up ----- Pat. Name: JOEY ARROYO Study Date: 04/01/2023 11:35am Pat. NO: [id number] Referring MD: TORITO MUSTAFA Site: [facility] Rougher Operator: Elissa ClarkeADAN : 1990 Age: 32 ----- INDICATION ----- growth restriction (FGR) METHOD ----- Transabdominal ultrasound examination. View: Sufficient ----- Kebede . Number of fetuses: 1 DATING ----- DateDetailsGest. age KENDRICK LMP 07/24/2022ycle: regular cycle35 w + 6 d 04/30/2023 Prior assessment 10/07/2022 GA: 10 w+ 2 d35 w + 3 d 05/03/2023 U/S 04/01/2023ased upon AC, BPD, Femur, HC32 w + 5 d 05/22/2023 Assigned dating Dating performed on 04/01/2023, based onthe prior assessment (on 10/07/2022) 35 w + 3 05/03/2023 GENERAL EVALUATION ----- Cardiac activity present. FHR 142 bpm. movements present. Presentation cephalic. Placenta Posterior. Umbilical cord 3 vessel cord. Amniotic fluid Amount of AF: normal. MVP 6.1 cm. BIOMETRY ----- Main Biometry: BPD 78.6 mm31w 4d Hadlock OFD 105.6 mm31w 2d Nicolaides HC 292.9 mm32w 2d Hadlock Cerebellum tr 46.6 mm-/- Nicolaides AC 293.4 mm33w 2d 8% Hadlock Femur 65.1 mm33w 4d Hadlock Humerus 56.3 mm32w 5d Aminah Weight Calculation: EFW 2,124 g6% Hadlock EFW (lb,oz) 4 lb 11 oz EFW by Hadlock ([id number]-[id number]-FL) Head / Face / Neck Biometry: Tech Writer 3.9 mm CM 4.6 mm ANATOMY ----- The following structures appear normal: Head / Neck Cranium. Head size. Head shape.Lateral ventricles. Midline falx. Cavum septi pellucidi. Cerebellum.Cisterna magna. Thalami. Face Lips. Profile. Nose. Heart / Thorax 4-chamber view. RVOT view. LVOT view.8-erldug-xvsnqbu view. Diaphragm. Abdomen Stomach. Kidneys. Bladder. Spine Cervical spine. Thoracic spine.Lumbar spine. Sacral spine. Gender: female. DOPPLER ----- Umbilical Artery: normal PI 1.0282% Jesus HR 147 bpm MATERNAL STRUCTURES ----- Cervix Not visualized Right Ovary Not examined Left Ovary Not examined NON STRESS TEST ----- NST interpretation: reactive. Test duration 40 min. Baseline FHR 130 bpm.Baseline variability: moderate. Accelerations: present. Decelerations:absent. Uterine activity: absent RECOMMENDATION ----- We discussed the findings on today's ultrasound with the patient. Continue surveillance with weekly NST, amniotic fluid and UADoppler assessment and a repeat assessment of growth will bescheduled in 3 weeks if Joey remains undelivered (delivery recommended at [id number]). Return to primary provider for continued care. Thank-you for the opportunity to participate in the care of this patient.If you have questions regarding today's evaluation or if we can be offurther service, please contact the [facility]. anomalies may be present but not detected I spent a total of 10 minutes on the date of this encounter includingpreparing to see the patient (reviewing medical records/tests), in oepswdwpko-db-yvrh contact with the patient during her visit with the majority spent counseling and discussingthe plan of care and documenting the visit in the electronic medicalrecord. Please see note for details. IMPRESSION ----- 1) Kebede intrauterine at 35w 3d gestational age. 2) None of the anomalies commonly detected by ultrasound were evident inthe anatomic survey described above. 3) Growth parameters and estimated weight were consistent with fetalgrowth restriction. 4) The amniotic fluid volume appeared normal. 5) The NST is reactive. 6) The umbilical artery Doppler is within normal limits. Annel Holguin MD [facility] US ORDERABLE S documented in this encounter Visit Diagnoses Diagnosis affected by growth restriction documented in this encounter Care Teams Nicker And Breaker Relationship Specialty Start Date End Date No Ref-Primary, Physician PCP - General 12/25/22 Odalys Holguin MD [address] [place] [address] [address] [place] [address] Assigned OBGYN Provider 03/06/23 documented as of this encounter
--- OUTSIDE RECORDS SUMMARY | 2023-04-25 18:26 | XMS_ITS | Encounter Summary ---
Author Name Unknown Organization [place] Address [address] [place] [address] Care Team Providers Care Relay Dispatcher Name Role Phone No Ref-Primary, Physician Primary Care Provider Odalys Holguin MD Unavailable Reason for Referral * Diagnostic Imaging Ultrasound (Routine) - Pending Review Specialty Diagnoses / Procedures Referred By Contac t Referred To Contact Radiology. Diagnoses affected by growth restriction Procedures Maternal US Comprehensive Single F/U Lyssa Beck MD [address] [facility] [address] [place] [address] Referral ID Status Reason Start Date Expiration Date V isits Requested Visits Authorized [id number] Pending Review 04/01/2023 03/31/2024 1 1 R SLITTER Reason for Visit * Diagnostic Imaging Ultrasound (Routine) - Pending Review Specialty Diagnoses / Procedures Referred By Contac t Referred To Contact Radiology. Diagnoses affected by growth restriction Procedures Maternal US Comprehensive Single F/U Lyssa Beck MD [address] [place] [address] Referral ID Status Reason Start Date Expiration Date V isits Requested Visits Authorized [id number] Pending Review 04/01/2023 03/31/2024 1 1 Encounter Details Date Type Department Care Team (Latest Contact Info) Description 04/21/2023 9:58 AM PAPER SLITTER - 04/21/2023 11:59 PM PAPER SLITTER Hospital Encounter [facility] [place] [address] [facility] [address] [place] [address] Juan Alberto Bañuelos MD [address] [place] [address] affected by growth restriction Discharge [...] Procedure Name Priority Date/Time Associated Diagnosis Comments [facility] US COMPREHENSIVE SINGLE F/U Routine 04/21/2023 10:50 AM PAPER SLITTER affected by growth restriction documented in this encounter Results * Maternal US Comprehensive Single F/U (04/21/2023 10:50 AM PAPER SLITTER) Anatomical Region Laterality Modality Ultrasound 04/21/2023 10:1 3 AM PAPER SLITTER Impressions 04/21/2023 10:54 AM PAPER SLITTER IMPRESSION ----- 1) Growth parameters and estimated weight were consistent with asymmetric intrauterine growth restriction. 2) The anatomic survey is limited due to late gestational age. 3) Normal amniotic fluid volume. 4) Normal umbilical artery doppler flow studies. 5) Reactive NST without decelerations. Narrative 04/21/2023 10:54 AM PAPER SLITTER ?Comp Follow Up ----- Pat. Name: JOEY ARROYO ? Study Date: ??04/21/2023 10:13am Pat. NO: ??[id number] ?Referring ??MD: TORITO MUSTAFA Site: ??[facility] ? Finishing Room Supervisor: Elissa Clarke RDMS : ??1990 ?Age: ?? [...] lb 15 ? oz EFW by ?Hadlock ([id number]-FL) Head / Face / Neck Biometry: Securities Underwriter ? 2.8 ? mm ANATOMY ----- The following structures appear normal: Head / Neck ? Cranium. Head size. Head shape. Lateral ventricles. Midline falx. Cavum septi pellucidi. Thalami. Face ? Lips. Profile. Nose. Heart / Thorax ?4-chamber view. RVOT view. LVOT view. 6-dhkewh-pcpfkfb view. ? Diaphragm. Abdomen ? Stomach. Kidneys. [...] ARROYO Study Date: 04/21/2023 10:13am Pat. NO: [id number] Referring MD: TORITO MUSTAFA Site: [facility] Finishing Room Supervisor: Elissa Clarke RDMS : 1990 Age: 32 [...] 5 lb 15 oz EFW by Hadlock ([id number]-FL) Head / Face / Neck Biometry: Securities Underwriter 2.8 mm ANATOMY ----- The following structures appear normal: Head / Neck Cranium. Head size. Head shape.Lateral ventricles. Midline falx. Cavum septi pellucidi. Thalami. Face Lips. Profile. Nose. Heart / Thorax 4-chamber view. RVOT view. LVOT view.9-xqaekf-lsbgray view. Diaphragm. Abdomen Stomach. Kidneys. Bladder. Spine [...] Reactive NST without decelerations. Lyssa Beck MD [facility] US ORDERABLE S documented in this encounter Visit Diagnoses Diagnosis affected by growth restriction documented in this encounter Care Teams Relay Dispatcher Relationship Specialty Start Date End Date No Ref-Primary, Physician PCP - General 12/25/22 Odalys Holguin MD [address] [place] [id number] Assigned OBGYN Provider 03/06/23 documented as of this encounter
--- OUTSIDE RECORDS SUMMARY | 2023-04-25 18:26 | XMS_ITS | Encounter Summary ---
Author Name Unknown Organization [place] Address [address] [facility] [place] [address] Care Team Providers Care Spray Worker Name Role Phone No Ref-Primary, Physician Primary Care Provider Odalys Holguin MD Unavailable Reason for Referral * Diagnostic Imaging Ultrasound (Routine) - Pending Review Specialty Diagnoses / Procedures Referred By Contac t Referred To Contact Radiology. Diagnoses affected by growth restriction Procedures Maternal US OB Limited Single/Multiple Annel Holguin MD [address] [facility] [address] [place] [id number] Referral ID Status Reason Start Date Expiration Date V isits Requested Visits Authorized [id number] Pending Review 03/10/2023 03/09/2024 1 1 ITY MANAGER Reason for Visit * Diagnostic Imaging Ultrasound (Routine) - Pending Review Specialty Diagnoses / Procedures Referred By Contac t Referred To Contact Radiology. Diagnoses affected by growth restriction Procedures Maternal US OB Limited Single/Multiple Annel Holguin MD [address] [place] [address] Referral ID Status Reason Start Date Expiration Date V isits Requested Visits Authorized [id number] Pending Review 03/10/2023 03/09/2024 1 1 Encounter Details Date Type Department Care Team (Latest Contact Info) Description 03/24/2023 8:16 AM GRAVITY MANAGER - 03/24/2023 11:59 PM GRAVITY MANAGER Hospital Encounter [facility] [place] [address] [place] [address] Annel Holguin MD [address] [place] [address] Juan Alberto Bañuelos MD [address] [place] [address] affected by growth restriction Discharge [...] Procedure Name Priority Date/Time Associated Diagnosis Comments [facility] US OB LIMITED SINGLE/MULTIPLE Routine 03/24/2023 8:56 AM GRAVITY MANAGER affected by growth restriction documented in this encounter Results * Maternal US OB Limited Single/Multiple (03/24/2023 8:56 AM GRAVITY MANAGER) Anatomical Region Laterality Modality Ultrasound 03/24/2023 8:43 AM GRAVITY MANAGER Impressions 03/24/2023 8:59 AM GRAVITY MANAGER IMPRESSION ----- 1) Normal amniotic fluid volume. 2) Normal umbilical artery doppler flow studies. 3) Reactive NST without decelerations. Narrative 03/24/2023 8:59 AM GRAVITY MANAGER ?Limited ----- Pat. Name: JOEY ARROYO ? Study Date: ??03/24/2023 8:43am Pat. NO: ??[id number] ?Referring ??MD: TORITO MUSTAFA Site: ??[facility] ? Electric Organ Assembler And Checker: Trisha Calle RDMS : ??1990 ?Age: ?? [...] MD - 03/24/2023 Limited ----- Pat. Name: JOEY ARROYO Study Date: 03/24/2023 8:43am Pat. NO: [id number] Referring MD: TORITO MUSTAFA Site: [facility] Electric Organ Assembler And Checker: Trisha Calle RDMS : 1990 Age: 32 [...] Reactive NST without decelerations. Annel Holguin MD IMG [facility] US ORDERABLE S documented in this encounter Visit Diagnoses Diagnosis affected by growth restriction documented in this encounter Care Teams Spray Worker Relationship Specialty Start Date End Date No Ref-Primary, Physician PCP - General 12/25/22 Odalys Holguin MD [address] [place] [address] Assigned OBGYN Provider 03/06/23 documented as of this encounter
--- OUTSIDE RECORDS SUMMARY | 2023-04-25 18:26 | XMS_ITS | Encounter Summary ---
Author Name Unknown Organization [place] Address [address] [facility] [place] [address] Care Team Providers Care Cash Management Associate Name Role Phone No Ref-Primary, Physician Primary Care Provider Odalys Holguin MD Unavailable Reason for Visit * Reason Comments Ultrasound NST/RL2/UAR-FGR * Consultation (Routine: Next available opening) - Pending Review Specialty Diagnoses / Procedures Referred By Contac t Referred To Contact Diagnoses affected by growth restriction Juan Alberto Bañuelos MD [address] [place] [address] Referral ID Status Reason Start Date Expiration Date V isits Requested Visits Authorized [id number] Pending Review 01/05/2023 01/05/2024 14 14 Encounter Details Date Type Department Care Team (Late st Contact Info) Description 04/21/2023 9:45 AM JOINER APPRENTICE Office Visit [facility] M[facility] Medicine [facility] [place] [address] [place] [phone] Juan Alberto Bañuelos MD [address] [place] [address] affected by growth restriction (Primary [...] Comments Blood Pressure 87/47 04/21/2023 10:27 AM JOINER APPRENTICE Pulse 56 04/21/2023 10:27 AM JOINER APPRENTICE Temperature - - Respiratory Rate - - Oxygen Saturation 99% 04/21/2023 10:27 AM JOINER APPRENTICE Inhaled Oxygen Concentration - - Weight - - Height - - Body Mass Index - - documented in this encounter Progress Notes * Juan Alberto Bañuelos MD - 04/21/2023 9:45 AM CST Please see Imaging tab under Chart Review for details of today's US at the [facility]. Juan Alberto Bañuelos MD Maternal- Medicine ER APPRENTICE documented in this encounter Nursing Notes * Agustina Echols RN - 04/21/2023 9:45 AM CST Patient presents to [facility] for NST/RL2/UAR at 38w2d due to FGR. Positive movement. Denies LOF, vaginal bleeding or cramping/contractions. SBAR given to [facility] MD, see their note in Epic. ER APPRENTICE documented in this encounter Plan of Treatment Not on file documented as of this encounter Visit Diagnoses Diagnosis affected by growth restriction- Primary documented in this encounter Care Teams Cash Management Associate Relationship Specialty Start Date End Date No Ref-Primary, Physician PCP - General 12/25/22 Odalys Holguin MD [address] [place] [address] Assigned OBGYN Provider 03/06/23 documented as of this encounter
--- OUTSIDE RECORDS SUMMARY | 2023-04-25 18:26 | XMS_ITS | Encounter Summary ---
Author Name Unknown Organization [place] Address [address] [facility] [facility] [place] [address] Care Team Providers Care Assistant Professor Of Education Name Role Phone No Ref-Primary, Physician Primary Care Provider Odalys Holguin MD Unavailable Encounter Details Date Type Department Care Team (Latest Contact Info) Description 03/24/2023 Travel Social History Tobacco Use Types Packs/Day Years [...] on file documented as of this encounter Plan of Treatment Not on file documented as of this encounter Visit Diagnoses Not on filedocumented in this encounter Care Teams Assistant Professor Of Education Relationship Specialty Start Date End Date No Ref-Primary, Physician PCP - General 12/25/22 Odalys Holguin MD [address] [place] [address] [address] [place] [address] Assigned OBGYN Provider 03/06/23 documented as of this encounter
--- OUTSIDE RECORDS SUMMARY | 2023-04-25 18:26 | XMS_ITS | Clinical Summary ---
Author Name Unknown Organization [place] Address [address] [facility] [place] [address] Care Team Providers Care Grading Machine Feeder Name Role Phone No Ref-Primary, Physician Primary Care Provider Odalys Holguin MD Unavailable Allergies No known active allergies Medications Medication Sig Dispensed Refills Start Date End Date Status vitamin iron-folic acid 27mg-0.8mg ( S) 27 mg iron- 800 mcg Tab tablet [ VITAMIN IRON-FOLIC ACID 27MG-0.8MG ( S) 27 MG IRON- 800 MCG TAB TABLET] Take 1 tablet by mouth daily. 0 09/21/2016 Active Encounters Date Type Department Care Team Description 04/21/2023 9:58 AM ANTIQUE FURNITURE REPRODUCER - 04/21/2023 11:59 PM ANTIQUE FURNITURE REPRODUCER Hospital Encounter [facility] Medicine [facility] [address] [place] [phone] Juan Alberto Bañuelos MD affected by growth restriction Discharge Disposition: Home or Self Care 04/21/2023 9:45 AM ANTIQUE FURNITURE REPRODUCER Office Visit [facility] Maternal Medicine [facility] [address] [place] [phone] Juan Alberto Bañuelos MD affected by growth restriction (Primary Dx) 04/21/2023 Travel 04/01/2023 10:46 AM ANTIQUE FURNITURE REPRODUCER - 04/01/2023 11:59 PM ANTIQUE FURNITURE REPRODUCER Hospital Encounter [facility] Maternal Medicine [facility] [address] [place] [phone] Annel Holguin MD Yamamura, Yasuko, MD affected by growth restriction Discharge Disposition: Home or Self Care 04/01/2023 10:30 AM ANTIQUE FURNITURE REPRODUCER Office Visit [facility] Maternal Medicine [facility] [address] [place] [address] Juan Alberto Bañuelos MD Yamamura, Yasuko, MD affected by growth restriction (Primary Dx) 04/01/2023 Travel 03/24/2023 8:16 AM ANTIQUE FURNITURE REPRODUCER - 03/24/2023 11:59 PM ANTIQUE FURNITURE REPRODUCER Hospital Encounter [facility] Maternal Medicine [facility] [address] [place] [address] Annel Holguin MD Rauk, Phillip Neil, MD affected by growth restriction Discharge Disposition: Home or Self Care 03/24/2023 8:15 AM ANTIQUE FURNITURE REPRODUCER Office Visit [facility] Maternal Medicine [facility] [address] [place] [address] Juan Alberto Bañuelos MD affected by growth restriction (Primary Dx) 03/24/2023 Travel 03/19/2023 2:33 PM ANTIQUE FURNITURE REPRODUCER - 03/19/2023 11:59 PM ANTIQUE FURNITURE REPRODUCER Hospital Encounter [facility] Maternal Medicine [facility] [address] [place] [address] Annel Holguin MD Jones, Cresta Wedel, MD affected by growth restriction Discharge Disposition: Home or Self Care 03/19/2023 2:30 PM ANTIQUE FURNITURE REPRODUCER Office Visit [facility] Maternal Medicine [facility] [address] [place] [address] Juan Alberto Bañuelos MD Jones, Cresta Wedel, MD affected by growth restriction 03/19/2023 Travel 03/10/2023 11:15 AM ANTIQUE FURNITURE REPRODUCER Office Visit [facility] Maternal Medicine [facility] [address] [place] [address] Juan Alberto Bañuelos MD Burn, Martina, MD affected by growth restriction 03/10/2023 11:11 AM ANTIQUE FURNITURE REPRODUCER - 03/10/2023 11:59 PM ANTIQUE FURNITURE REPRODUCER Hospital Encounter [facility] Medicine [facility] [address] [place] [address] Lyssa Beck MD Burn, Martina, MD affected by growth restriction Discharge Disposition: Home or Self Care 03/10/2023 Travel 03/03/2023 1:45 PM ANTIQUE FURNITURE REPRODUCER Office Visit [facility] Maternal Medicine [facility] [address] [place] [address] Juan Alberto Bañuelos MD affected by growth restriction (Primary Dx) 03/03/2023 1:25 PM ANTIQUE FURNITURE REPRODUCER - 03/03/2023 11:59 PM ANTIQUE FURNITURE REPRODUCER Hospital Encounter [facility] Medicine [place] [address] [place] [address] Lyssa Beck MD Rauk, Phillip Neil, MD affected by growth restriction Discharge Disposition: Home or Self Care 03/03/2023 Travel 02/24/2023 2:15 PM ANTIQUE FURNITURE REPRODUCER Office Visit [facility] Medicine [facility] [address] [place] [address] Juan Alberto Bañuelos MD Burn, Sabrina, MD affected by growth restriction 02/24/2023 1:30 PM ANTIQUE FURNITURE REPRODUCER - 02/24/2023 11:59 PM ANTIQUE FURNITURE REPRODUCER Hospital Encounter [facility] Maternal Medicine [facility] [address] [place] [address] Lyssa Beck MD Burn, Sabrina, MD affected by growth restriction Discharge Disposition: Home or Self Care 02/24/2023 Travel 02/17/2023 10:45 AM ANTIQUE FURNITURE REPRODUCER Office Visit [facility] Maternal Medicine [facility] [address] [place] [address] Juan Alberto Bañuelos MD Yamamura, Yasuko, MD affected by growth restriction (Primary Dx) 02/17/2023 10:13 AM ANTIQUE FURNITURE REPRODUCER - 02/17/2023 11:59 PM ANTIQUE FURNITURE REPRODUCER Hospital Encounter [facility] Maternal Medicine [facility] [address] [place] [address] Juan Alberto Bañuelos MD Yamamura, Yasuko, MD affected by growth restriction Discharge Disposition: Home or Self Care 02/17/2023 Travel 01/27/2023 10:41 AM CDT - 01/27/2023 11:59 PM CDT Hospital Encounter [facility] Maternal Medicine [facility] [address] [place] [address] Juan Alberto Bañuelos MD affected by growth restriction Discharge Disposition: Home or Self Care 01/27/2023 10:30 AM CDT Office Visit [facility] Medicine [place] [address] [facility] [address] [place] [address] Juan Alberto Bañuelos MD affected by growth restriction (Primary Dx) 01/27/2023 Travel from Last 3 Months Social History Tobacco Use Types Packs/Day Years [...] Comments Blood Pressure 87/47 04/21/2023 10:27 AM ANTIQUE FURNITURE REPRODUCER Pulse 56 04/21/2023 10:27 AM ANTIQUE FURNITURE REPRODUCER Temperature - - Respiratory Rate - - Oxygen Saturation 99% 04/21/2023 10:27 AM ANTIQUE FURNITURE REPRODUCER Inhaled Oxygen Concentration - - Weight 50.8 kg (112 lb) 08/05/2017 3:14 PM CDT Height - - Body Mass Index - - Plan of Treatment Health Maintenance Due Date Last Done Comments ADVANCE CARE PLANNING 1990 ANNUAL REVIEW OF HM ORDERS 1990 YEARLY PREVENTIVE VISIT 1990 HIV SCREENING 11/08/2003 HEPATITIS C SCREENING 2006 PAP 2009 MATERNAL SCREENING DISCUSSION 10/05/2022 COVID-19 Vaccine ( season) 2022 12/06/2020, 11/08/2020 INFLUENZA VACCINE (#1) 2022 01/20/2017 OBGCT (OB) 01/11/2023 GROUP B STREP SCREENING 04/05/2023 PHQ-2 (once per calendar year) 2023 DTAP/TDAP/TD IMMUNIZATION (5 - Td or Tdap) 03/24/2033 03/24/2023, 08/08/2020, 02/17/2017, Additional history exists HEPATITIS B IMMUNIZATION Completed 018, 01/20/2017, 11/18/2016 HPV IMMUNIZATION Aged Out No longer e ligible based on patient's age to complete this topic IPV IMMUNIZATION Aged Out No longer e ligible based on patient's age to complete this topic MENINGITIS IMMUNIZATION Aged Out No l onger eligible based on patient's age to complete this topic Pneumococcal Vaccine: Pediatrics (0 to 5 Years) and At-Risk Patients (6 to 64 Years) Aged Out No longer eligible based on patient's age to complete this topic RSV MONOCLONAL ANTIBODY Aged Out No l onger eligible based on patient's age to complete this topic RSV VACCINE ( & 60+) (No Doses Required) Completed Procedures Procedure Name Priority Date/Time Associated Diagnosis Comments [facility] COMPREHENSIVE SINGLE F/U Routine 04/21/2023 10:50 AM ANTIQUE FURNITURE REPRODUCER affected by growth restriction [facility] COMPREHENSIVE SINGLE F/U Routine 04/01/2023 12:09 PM ANTIQUE FURNITURE REPRODUCER affected by growth restriction [facility] OB LIMITED SINGLE/MULTIPLE Routine 03/24/2023 8:56 AM ANTIQUE FURNITURE REPRODUCER affected by growth restriction [facility] OB LIMITED SINGLE/MULTIPLE Routine 03/19/2023 3:22 PM ANTIQUE FURNITURE REPRODUCER affected by growth restriction [facility] COMPREHENSIVE SINGLE F/U Routine 03/10/2023 12:16 PM ANTIQUE FURNITURE REPRODUCER affected by growth restriction [facility] US OB LIMITED SINGLE/MULTIPLE Routine 03/03/2023 2:16 PM ANTIQUE FURNITURE REPRODUCER affected by growth restriction [facility] US OB LIMITED SINGLE/MULTIPLE Routine 02/24/2023 2:33 PM ANTIQUE FURNITURE REPRODUCER affected by growth restriction [facility] US COMPREHENSIVE SINGLE F/U Routine 02/17/2023 11:17 AM ANTIQUE FURNITURE REPRODUCER affected by growth restriction [facility] US COMPREHENSIVE SINGLE F/U Routine 01/27/2023 11:36 AM CDT affected by growth restriction from Last 3 Months Results * Maternal US Comprehensive Single F/U (04/21/2023 10:50 AM ANTIQUE FURNITURE REPRODUCER) Only the most recent of5 resultswithin the time period is included. Anatomical Region Laterality Modality Ultrasound 04/21/2023 10:1 3 AM ANTIQUE FURNITURE REPRODUCER Impressions 04/21/2023 10:54 AM ANTIQUE FURNITURE REPRODUCER IMPRESSION ----- 1) Growth parameters and estimated weight were consistent with asymmetric intrauterine growth restriction. 2) The anatomic survey is limited due to late gestational age. 3) Normal amniotic fluid volume. 4) Normal umbilical artery doppler flow studies. 5) Reactive NST without decelerations. Narrative 04/21/2023 10:54 AM ANTIQUE FURNITURE REPRODUCER ?Comp Follow Up ----- Pat. Name: JOEY ARROYO ? Study Date: ??04/21/2023 10:13am Pat. NO: ??[id number] ?Referring ??MD: TORITO MUSTAFA Site: ??[facility] ? Bag Checker: Elissa Clarke RUST : ??1990 ?Age: ?? 32 ----- INDICATION [...] BPD ?86.3 ?mm ? 34w 6d ?Hadronald OFD ?116.9 ?mm ?-/- ?Nicolaides HC ?324.0 ?mm ?36w 5d ?Hadlock AC ?315.8 ?mm ?35w 4d ?6% ?Hadlock Femur ?69.0 ? mm ?35w 3d ?Hadlock Humerus ?60.7 ?mm ? 35w 1d ?Aminah Weight Calculation: EFW ? 2,702 ?g ? 9% ? Hadlock EFW (lb,oz) ? 5 lb 15 ? oz EFW by ?Hadlock ([id number]) Head / Face / Neck Biometry: Bottom Man ? 2.8 ? mm ANATOMY ----- The following structures appear normal: Head / Neck ? Cranium. Head size. Head shape. Lateral ventricles. Midline falx. Cavum septi pellucidi. Thalami. Face ? Lips. Profile. Nose. Heart / Thorax ?4-chamber view. RVOT view. LVOT view. 3-ndneya-ytxiqmy view. ? Diaphragm. Abdomen ? Stomach. Kidneys. [...] ARROYO Study Date: 04/21/2023 10:13am Pat. NO: [id number] Referring MD: TORITO MUSTAFA Site: [facility] Bag Checker: Elissa ADAN Clarke : 1990 Age: 32 ----- INDICATION ----- [...] 5 lb 15 oz EFW by Hadlock ([id number]) Head / Face / Neck Biometry: Bottom Man 2.8 mm ANATOMY ----- The following structures appear normal: Head / Neck Cranium. Head size. Head shape.Lateral ventricles. Midline falx. Cavum septi pellucidi. Thalami. Face Lips. Profile. Nose. Heart / Thorax 4-chamber view. RVOT view. LVOT view.[id number] view. Diaphragm. Abdomen Stomach. Kidneys. Bladder. Spine [...] Reactive NST without decelerations. Lyssa Beck MD [facility] US ORDERABLE S * Maternal US OB Limited Single/Multiple (03/24/2023 8:56 AM ANTIQUE FURNITURE REPRODUCER) Only the most recent of4 resultswithin the time period is included. Anatomical Region Laterality Modality Ultrasound 03/24/2023 8:43 AM ANTIQUE FURNITURE REPRODUCER Impressions 03/24/2023 8:59 AM ANTIQUE FURNITURE REPRODUCER IMPRESSION ----- 1) Normal amniotic fluid volume. 2) Normal umbilical artery doppler flow studies. 3) Reactive NST without decelerations. Narrative 03/24/2023 8:59 AM ANTIQUE FURNITURE REPRODUCER ?Limited ----- Pat. Name: JOEY ARROYO ? Study Date: ??03/24/2023 8:43am Pat. NO: ??[id number] ?Referring ??MD: TORITO MUSTAFA Site: ??[facility] ? Bag Checker: Trisha Calle RUST : ??1990 ?Age: ?? 32 ----- INDICATION [...] ARROYO Study Date: 03/24/2023 8:43am Pat. NO: [id number] Referring MD: TORITO MUSTAFA Site: [facility] Bag Checker: Trisha Calle RDMS : 1990 Age: [...] studies. 3) Reactive NST without decelerations. [facility] from Last 3 Months Care Teams Grading Machine Feeder Relationship Specialty Start Date End Date No Ref-Primary, Physician PCP - General 12/25/22 Odalys Holguin MD [address] [place] [address] Assigned OBGYN Provider 03/06/23
--- OUTSIDE RECORDS SUMMARY | 2023-04-25 18:26 | XMS_ITS | Encounter Summary ---
Author Name Unknown Organization [place] Address [address] [place] [address] Care Team Providers Care International Logistics Coordinator Name Role Phone No Ref-Primary, Physician Primary Care Provider Odalys Holguin MD Unavailable Encounter Details Date Type Department Care Team (Latest Contact Info) Description 04/01/2023 Travel Social History Tobacco Use Types Packs/Day [...] on filedocumented in this encounter Care Teams International Logistics Coordinator Relationship Specialty Start Date End Date No Ref-Primary, Physician PCP - General 12/25/22 Odalys Holguin MD [address] [place] [address] [address] [place] [address] Assigned OBGYN Provider 03/06/23 documented as of this encounter
--- OUTSIDE RECORDS SUMMARY | 2023-04-25 18:26 | XMS_ITS | Encounter Summary ---
Author Name Unknown Organization [place] Address [address] [place] [address] Care Team Providers Care Auto Hiker Name Role Phone No Ref-Primary, Physician Primary Care Provider Odalys Holguin MD Unavailable Encounter Details Date Type Department Care Team (Latest Contact Info) Description 04/21/2023 Travel Social History Tobacco Use Types Packs/Day [...] on filedocumented in this encounter Care Teams Auto Hiker Relationship Specialty Start Date End Date No Ref-Primary, Physician PCP - General 12/25/22 Odalys Holguin MD [address] [place] [address] [address] [place] [address] Assigned OBGYN Provider 03/06/23 documented as of this encounter
--- OUTSIDE RECORDS SUMMARY | 2023-04-25 18:27 | XMS_ITS | Encounter Summary ---
Author Name Unknown Organization [place] Address [address] [place] [address] Care Team Providers Care Handbag Designer Name Role Phone No Ref-Primary, Physician Primary Care Provider Odalys Holguin MD Unavailable Reason for Referral * Diagnostic Imaging Ultrasound (Routine) - Pending Review Specialty Diagnoses / Procedures Referred By Contac t Referred To Contact Radiology. Diagnoses affected by growth restriction Procedures Maternal US Comprehensive Single F/U Lyssa Beck MD [address] [facility] [address] [place] [address] Referral ID Status Reason Start Date Expiration Date V isits Requested Visits Authorized [id number] Pending Review 02/17/2023 02/17/2024 1 1 T GRADER OPERATOR Reason for Visit * Diagnostic Imaging Ultrasound (Routine) - Pending Review Specialty Diagnoses / Procedures Referred By Contac t Referred To Contact Radiology. Diagnoses affected by growth restriction Procedures Maternal US Comprehensive Single F/U Lyssa Beck MD [address] [place] [address] Referral ID Status Reason Start Date Expiration Date V isits Requested Visits Authorized [id number] Pending Review 02/17/2023 02/17/2024 1 1 Encounter Details Date Type Department Care Team (Latest Contact Info) Description 03/10/2023 11:11 AM FRUIT GRADER OPERATOR - 03/10/2023 11:59 PM FRUIT GRADER OPERATOR Hospital Encounter [facility] [place] [address] [place] [address] Lyssa Beck MD [address] [place] [address] Annel Holguin MD [address] [place] [address] affected by growth restriction Discharge [...] Procedure Name Priority Date/Time Associated Diagnosis Comments [facility] US COMPREHENSIVE SINGLE F/U Routine 03/10/2023 12:16 PM FRUIT GRADER OPERATOR affected by growth restriction documented in this encounter Results * Maternal US Comprehensive Single F/U (03/10/2023 12:16 PM FRUIT GRADER OPERATOR) Anatomical Region Laterality Modality Ultrasound 03/10/2023 11:4 4 AM FRUIT GRADER OPERATOR Impressions 03/10/2023 12:29 PM FRUIT GRADER OPERATOR IMPRESSION ----- 1. Kebede intrauterine at 32w 2d with growth restriction here for assessment of growth and surveillance. 2. None of the anomalies commonly detected by ultrasound were evident in the limited anatomic survey as described above, anatomy limited by gestational age and lie. 3. The EFW measured at the 5%, AC 16%, appropriate interval growth was noted. 4. The amniotic fluid volume appeared normal. 5. The umbilical artery dopplers were within normal limits. 6. The NST was reactive and reassuring. Narrative 03/10/2023 12:29 PM FRUIT GRADER OPERATOR ?Comp Follow Up ----- Pat. Name: JOEY ARROYO ? Study Date: ??03/10/2023 11:44am Pat. NO: ??[id number] ?Referring ??MD: TORITO MUSTAFA Site: [facility] ? Artificial Breeding Distributor: Trisha Calle RDMS : ??1990 ?Age: ?? 32 ----- INDICATION ----- growth restriction (FGR) METHOD ----- Transabdominal ultrasound examination. View: Sufficient ----- Kebede . Number of fetuses: 1 DATING ----- ? Date ?Details ?Gest. age ?KENDRICK LMP ?07/24/2022 ?Cycle: regular cycle ?32 w + 5 d ? 04/30/2023 Prior assessment ? 10/07/2022 ?GA: 10 w + 2 d ? 32 w + 2 d ? 05/03/2023 U/S ? 03/10/2023 ? based upon AC, BPD, Femur, HC ?30 w + 0 d ? 05/19/2023 Assigned dating ?Dating performed on 03/03/2023, based on the prior assessment (on 10/07/2022) ? 32 w + 2 d ? 05/03/2023 GENERAL EVALUATION ----- Cardiac activity present. FHR 141 bpm. movements present. Presentation cephalic. Placenta Posterior, No Previa, > 2 cm from internal os. Umbilical cord Cord vessels: 3 vessel cord. Amniotic fluid Amount of AF: normal. MVP 5.9 cm. BIOMETRY ----- Main Biometry: BPD ?73.1 ?mm ? 29w 2d ?Hadlock OFD ?96.7 ?mm ? 28w 4d ?Nicolaides HC ?272.3 ?mm ?29w 5d ?Hadlock Cerebellum tr ?40.3 ? mm ?34w 2d ?Nicolaides AC ?269.5 ?mm ?31w 0d ?16% ?Hadlock Femur ?57.4 ? mm ?30w 1d ?Hadlock Humerus ?50.7 ?mm ? 29w 5d ?Aminah Weight Calculation: EFW ? 1,579 ?g ? 5% ? Hadlock EFW (lb,oz) ? 3 lb 8 ?oz EFW by ?Hadlock ([id number]) Head / Face / Neck Biometry: Mechanic ? 3.0 ? mm CM ?6.7 ? mm Extremities / Bony Struc Biometry: Rt Humerus ?50.7 ? mm ?29w 5d ?Aminah Rt Radius ? 43.8 ? mm ?37% ?Schilling Rt Ulna ?50.2 ?mm ? 16% ?Schilling Lt Humerus ?51.6 ?mm ? 30w 1d ?Aminah Lt Radius ? 44.7 ?mm ? 45% ?Schilling Lt Ulna ? 48.7 ? mm ?7% ?Schilling Rt Femur ? 57.4 ?mm ? 30w 1d ? Hadlock Rt Tibia ?48.6 ?mm ? 5% ?Schilling Rt Fibula ?47.2 ?mm ? 17% ?Schilling Lt Femur ?57.7 ?mm ? 30w 1d ?Hadlock Lt Tibia ?48.8 ?mm ? 6% ? Schilling Lt Fibula ?48.5 ?mm ? 24% ? Schilling ANATOMY ----- The following structures appear normal: Head / Neck ? Cranium. Head size. Head shape. Lateral ventricles. Midline falx. Cavum septi pellucidi. Cerebellum. Cisterna magna. Thalami. Face ? Lips. Profile. Nose. Heart / Thorax ?4-chamber view. RVOT view. LVOT view. Situs. ? Diaphragm. Abdomen ? Stomach. Kidneys. Bladder. Spine ?Cervical spine. Thoracic spine. Lumbar spine. Sacral spine. The following structures were documented previously: Heart / Thorax ?3-ujyknu-qinhlpf view. Gender: female. DOPPLER ----- Umbilical Artery: normal PI ?1.22 ?94% ?Jesus HR ?146 ? bpm MATERNAL STRUCTURES ----- Cervix ?Suboptimal Right Ovary ?Not examined Left Ovary ?Not examined NON STRESS TEST ----- NST interpretation: reactive. Test duration 21 min. Baseline FHR 135 bpm. Baseline variability: moderate. Accelerations: present. Decelerations: absent. Uterine activity: absent RECOMMENDATION ----- Thank-you for referring your patient for surveillance in the setting of growth restriction. I discussed the findings on today's ultrasound with the patient. BP today 82/52. Continue weekly surveillance/UA Dopplers and growth evaluation every 3 weeks. Delivery timing will depend on further assessment, however, if findings remain stable plan for 39 weeks. Return to primary provider for continued care. If you have questions regarding today's evaluation or if we can be of further service, please contact the [facility] Center. anomalies may be present but not detected I spent a total of 10 minutes on the date of this encounter including preparing to see the patient (reviewing medical records/tests), in direct mgmk-po-bxng contact with the patient during her visit with the majority spent counseling and discussing the plan of care and documenting the visit in the electronic medical record. Please see note for details. Procedure Note Annel Holguin MD - 03/10/2023 Comp Follow Up ----- Pat. Name: JOEY ARROYO Study Date: 03/10/2023 11:44am Pat. NO: [id number] Referring MD: TORITO MUSTAFA Site: [facility] Artificial Breeding Distributor: Trisha Calle RDMS : 1990 Age: 32 ----- INDICATION ----- growth restriction (FGR) METHOD ----- Transabdominal ultrasound examination. View: Sufficient ----- Kebede . Number of fetuses: 1 DATING ----- DateDetailsGest. age KENDRICK LMP 07/24/2022ycle: regular cycle32 w + 5 d 04/30/2023 Prior assessment 10/07/2022 GA: 10 w+ 2 d32 w + 2 d 05/03/2023 U/S 03/10/2023ased upon AC, BPD, Femur, HC30 w + 0 d 05/19/2023 Assigned dating Dating performed on 03/03/2023, based onthe prior assessment (on 10/07/2022) 32 w + 2 05/03/2023 GENERAL EVALUATION ----- Cardiac activity present. FHR 141 bpm. movements present. Presentation cephalic. Placenta Posterior, No Previa, > 2 cm from internal os. Umbilical cord Cord vessels: 3 vessel cord. Amniotic fluid Amount of AF: normal. MVP 5.9 cm. BIOMETRY ----- Main Biometry: BPD 73.1 mm29w 2d Hadlock OFD 96.7 mm28w 4d Nicolaides HC 272.3 mm29w 5d Hadlock Cerebellum tr 40.3 mm34w 2d Nicolaides AC 269.5 mm31w 0d 16% Hadlock Femur 57.4 mm30w 1d Hadlock Humerus 50.7 mm29w 5d Aminah Weight Calculation: EFW 1,579 g5% Hadlock EFW (lb,oz) 3 lb 8 oz EFW by Hadlock ([id number]-FL) Head / Face / Neck Biometry: Mechanic 3.0 mm CM 6.7 mm Extremities / Bony Struc Biometry: Rt Humerus 50.7 mm29w 5d Aminah Rt Radius 43.8 mm37% Schilling Rt Ulna 50.2 mm16% Schilling Lt Humerus 51.6 mm30w 1d Aminah Lt Radius 44.7 mm45% Schilling Lt Ulna 48.7 mm7% Schilling Rt Femur 57.4 mm30w 1d Hadlock Rt Tibia 48.6 mm5% Schilling Rt Fibula 47.2 mm17% Schilling Lt Femur 57.7 mm30w 1d Hadlock Lt Tibia 48.8 mm6% Schilling Lt Fibula 48.5 mm24% Schilling ANATOMY ----- The following structures appear normal: Head / Neck Cranium. Head size. Head shape.Lateral ventricles. Midline falx. Cavum septi pellucidi. Cerebellum.Cisterna magna. Thalami. Face Lips. Profile. Nose. Heart / Thorax 4-chamber view. RVOT view. LVOT view.Situs. Diaphragm. Abdomen Stomach. Kidneys. Bladder. Spine Cervical spine. Thoracic spine.Lumbar spine. Sacral spine. The following structures were documented previously: Heart / Thorax 3-tstexg-hvthuef view. Gender: female. DOPPLER ----- Umbilical Artery: normal PI 1.2294% Jesus HR 146 bpm MATERNAL STRUCTURES ----- Cervix Suboptimal Right Ovary Not examined Left Ovary Not examined NON STRESS TEST ----- NST interpretation: reactive. Test duration 21 min. Baseline FHR 135 bpm.Baseline variability: moderate. Accelerations: present. Decelerations:absent. Uterine activity: absent RECOMMENDATION ----- Thank-you for referring your patient for surveillance in thesetting of growth restriction. I discussed the findings on today'sultrasound with the patient. BP today 82/52. Continue weekly surveillance/UA Dopplers and growth evaluationevery 3 weeks. Delivery timing will depend on further assessment, however,if findings remain stable plan for 39 weeks. Return to primary provider for continued care. If you have questions regarding today's evaluation or if we can be offurther service, please contact the [facility] Center. anomalies may be present but not detected I spent a total of 10 minutes on the date of this encounter includingpreparing to see the patient (reviewing medical records/tests), in gpejbtosqo-nr-wihj contact with the patient during her visit with the majority spent counseling and discussingthe plan of care and documenting the visit in the electronic medicalrecord. Please see note for details. IMPRESSION ----- 1. Kebede intrauterine at 32w 2d with growthrestriction here for assessment of growth and antenatalsurveillance. 2. None of the anomalies commonly detected by ultrasound were evident inthe limited anatomic survey as described above, anatomy limited bygestational age and lie. 3. The EFW measured at the 5%, AC 16%, appropriate interval growth wasnoted. 4. The amniotic fluid volume appeared normal. 5. The umbilical artery dopplers were within normal limits. 6. The NST was reactive and reassuring. Lyssa Beck MD [facility] US ORDERABLE S documented in this encounter Visit Diagnoses Diagnosis affected by growth restriction documented in this encounter Care Teams Handbag Designer Relationship Specialty Start Date End Date No Ref-Primary, Physician PCP - General 12/25/22 Odalys Holguin MD [address] [place] [id number] Assigned OBGYN Provider 03/06/23 documented as of this encounter
--- OUTSIDE RECORDS SUMMARY | 2023-04-25 18:27 | XMS_ITS | Encounter Summary ---
Author Name Unknown Organization [facility] Address [facility] [place] [address] Care Team Providers Care Pulp House Supervisor Name Role Phone No Ref-Primary, Physician Primary Care Provider Tessa Elliott MD Unavailable [phone] Reason for Visit * Reason Comments Ultrasound NST/Limited/UAR-FGR * Consultation (Routine: Next available opening) - Pending Review Specialty Diagnoses / Procedures Referred By Contac t Referred To Contact Diagnoses affected by growth restriction Juan Alberto Bañuelos MD [address] [place] [address] Referral ID Status Reason Start Date Expiration Date V isits Requested Visits Authorized [id number] Pending Review 01/05/2023 01/05/2024 14 14 Encounter Details Date Type Department Care Team (Late st Contact Info) Description 03/03/2023 1:45 PM SALES ARCHITECT Office Visit [facility] [place] [address] [facility] [address] [place] [phone] Juan Alberto Bañuelos MD [address] [place] [address] affected by growth restriction (Primary [...] Sign Reading Time Taken Comments Blood Pressure 84/51 03/03/2023 1:42 PM SALES ARCHITECT Pulse 60 03/03/2023 1:42 PM SALES ARCHITECT Temperature - - Respiratory Rate - - Oxygen Saturation 97% 03/03/2023 1:42 PM SALES ARCHITECT Inhaled Oxygen Concentration - - Weight - - Height - - Body Mass Index - - documented in this encounter Progress Notes * Juan Alberto Bañuelos MD - 03/03/2023 1:45 PM CST Please see Imaging tab under Chart Review for details of today's US at the [facility]. Juan Alberto Bañuelos MD Maternal- Medicine S ARCHITECT documented in this encounter Nursing Notes * Ashlie Martin RN - 03/03/2023 1:45 PM CST Patient reports active movement, denies pain, contractions, leaking of fluid, or bleeding. Patient denies headache, visual changes, nausea/vomiting, epigastric pain related to preeclampsia. SBAR given to [facility] , see their note in Epic. NST Performed due to FGR. reviewed efm tracing. See NST/BPP Doc Flowsheet tab. S ARCHITECT documented in this encounter Plan of Treatment Not on file documented as of this encounter Visit Diagnoses Diagnosis affected by growth restriction- Primary documented in this encounter Care Teams Pulp House Supervisor Relationship Specialty Start Date End Date No Ref-Primary, Physician PCP - General 12/25/22 Tessa Elliott MD [address] [facility] [address] [place] [address] Assigned OBGYN Provider 01/23/23 documented as of this encounter
--- OUTSIDE RECORDS SUMMARY | 2023-04-25 18:27 | XMS_ITS | Encounter Summary ---
Author Name Unknown Organization [place] [facility] Address [address] [facility] [facility] [place] [address] Care Team Providers Care Phone Representative Name Role Phone No Ref-Primary, Physician Primary Care Provider Tessa Elliott MD Unavailable [phone] Encounter Details Date Type Department Care Team (Latest Contact Info) Description 03/03/2023 Travel Social History Tobacco Use Types Packs/Day [...] on filedocumented in this encounter Care Teams Phone Representative Relationship Specialty Start Date End Date No Ref-Primary, Physician PCP - General 12/25/22 Tessa Elliott MD [address] [place] [address] Assigned OBGYN Provider 01/23/23 documented as of this encounter
--- OUTSIDE RECORDS SUMMARY | 2023-04-25 18:27 | XMS_ITS | Encounter Summary ---
Author Name Unknown Organization [facility] Address [address] [place] [address] Care Team Providers Care Principal Archaeologist Name Role Phone No Ref-Primary, Physician Primary Care Provider Tessa Elliott MD Unavailable [phone] Reason for Referral * Diagnostic Imaging Ultrasound (Routine) - Pending Review Specialty Diagnoses / Procedures Referred By Contac t Referred To Contact Radiology. Diagnoses affected by growth restriction Procedures Maternal US OB Limited Single/Multiple Lyssa Beck MD [address] [facility] [address] [place] [address] Referral ID Status Reason Start Date Expiration Date V isits Requested Visits Authorized [id number] Pending Review 02/17/2023 02/17/2024 1 1 TER FIXER Reason for Visit * Diagnostic Imaging Ultrasound (Routine) - Pending Review Specialty Diagnoses / Procedures Referred By Contac t Referred To Contact Radiology. Diagnoses affected by growth restriction Procedures Maternal US OB Limited Single/Multiple Lyssa Beck MD [address] [place] [address] Referral ID Status Reason Start Date Expiration Date V isits Requested Visits Authorized [id number] Pending Review 02/17/2023 02/17/2024 1 1 Encounter Details Date Type Department Care Team (Latest Contact Info) Description 03/03/2023 1:25 PM QUILTER FIXER - 03/03/2023 11:59 PM QUILTER FIXER Hospital Encounter [facility] [place] [address] [facility] [address] [place] [address] Lyssa Beck MD [address] [place] [address] Juan Alberto Bañuelos MD [address] [place] [address] affected by growth restriction Discharge [...] Procedure Name Priority Date/Time Associated Diagnosis Comments MFM US OB LIMITED SINGLE/MULTIPLE Routine 03/03/2023 2:16 PM QUILTER FIXER affected by growth restriction documented in this encounter Results * Maternal US OB Limited Single/Multiple (03/03/2023 2:16 PM QUILTER FIXER) Anatomical Region Laterality Modality Ultrasound 03/03/2023 1:51 PM QUILTER FIXER Impressions 03/03/2023 3:53 PM QUILTER FIXER IMPRESSION ----- 1) Normal amniotic fluid volume. 2) Normal umbilical artery doppler flow studies. 3) Reactive NST without decelerations. Narrative 03/03/2023 3:53 PM QUILTER FIXER ?Limited ----- Pat. Name: JOEY ARROYO ? Study Date: ??03/03/2023 1:51pm Pat. NO: ??[id number] ?Referring ??MD: TORITO MUSTAFA Site: ??[facility] ? Computer Systems Designer: Jose L Ramirez RDMS : ??1990 ?Age: ?? 32 ----- INDICATION ----- Growth Restriction (FGR) METHOD ----- Transabdominal ultrasound examination. View: Sufficient ----- Kebede . Number of fetuses: 1 DATING ----- ? Date ?Details ?Gest. age ?KENDRICK LMP ?07/24/2022 ?Cycle: regular cycle ?31 w + 5 d ? 04/30/2023 Prior assessment ? 10/07/2022 ?GA: 10 w + 2 d ? 31 w + 2 d ? 05/03/2023 Assigned dating ?Dating performed on 03/03/2023, based on the prior assessment (on 10/07/2022) ? 31 w + 2 d ? 05/03/2023 GENERAL EVALUATION ----- Cardiac activity present. FHR 136 bpm. movements visualized. Presentation cephalic. Placenta Posterior. Umbilical cord previously studied. Amniotic fluid Amount of AF: normal. MVP 4.4 cm. DOPPLER ----- Umbilical Artery: normal PI ?1.18 ?89% ? Jesus HR ?141 ? bpm MATERNAL STRUCTURES ----- Right Ovary ?Not examined Left Ovary ?Not examined NON STRESS TEST ----- NST interpretation: reactive. Test duration 20 min. Baseline FHR 140 bpm. Baseline variability: moderate. Accelerations: present. Decelerations: [...] Procedure Note Juan Alberto Bañuelos MD - 03/03/2023 Limited ----- Pat. Name: JOEY ARROYO Study Date: 03/03/2023 1:51pm Pat. NO: [id number] Referring MD: TORITO MUSTAFA Site: [facility] Computer Systems Designer: Jose L Ramirez RDMS : 1990 Age: 32 ----- INDICATION ----- Growth Restriction (FGR) METHOD ----- Transabdominal ultrasound examination. View: Sufficient ----- Kebede . Number of fetuses: 1 DATING ----- DateDetailsGest. age KENDRICK LMP 07/24/2022ycle: regular cycle31 w + 5 d 04/30/2023 Prior assessment 10/07/2022 GA: 10 w+ 2 d31 w + 2 d 05/03/2023 Assigned dating Dating performed on 03/03/2023, based onthe prior assessment (on 10/07/2022) 31 w + 2 05/03/2023 GENERAL EVALUATION ----- Cardiac activity present. FHR 136 bpm. movements visualized. Presentation cephalic. Placenta Posterior. Umbilical cord previously studied. Amniotic fluid Amount of AF: normal. MVP 4.4 cm. DOPPLER ----- Umbilical Artery: normal PI 1.1889% Jesus HR 141 bpm MATERNAL STRUCTURES ----- Right Ovary Not examined Left Ovary Not examined NON STRESS TEST ----- NST interpretation: reactive. Test duration 20 min. Baseline FHR 140 bpm.Baseline variability: moderate. Accelerations: present. Decelerations:absent. Uterine [...] flow studies. 3) Reactive NST without decelerations. Lyssa Beck MD [facility] US ORDERABLE S documented in this encounter Visit Diagnoses Diagnosis affected by growth restriction documented in this encounter Care Teams Principal Archaeologist Relationship Specialty Start Date End Date No Ref-Primary, Physician PCP - General 12/25/22 Tessa Elliott MD [address] [address] Assigned OBGYN Provider 01/23/23 documented as of this encounter
--- OUTSIDE RECORDS SUMMARY | 2023-04-25 18:27 | XMS_ITS | Encounter Summary ---
Author Name Unknown Organization [facility] Address [address] [facility] [place] [address] Care Team Providers Care Manager In Training Name Role Phone No Ref-Primary, Physician Primary Care Provider Tessa Elliott MD Unavailable [phone] Reason for Visit * Reason Comments Ultrasound Limited/UAR/NST-FGR * Consultation (Routine: Next available opening) - Pending Review Specialty Diagnoses / Procedures Referred By Contac t Referred To Contact Diagnoses affected by growth restriction Juan Alberto Bañuelos MD [address] [place] [address] Referral ID Status Reason Start Date Expiration Date V isits Requested Visits Authorized [id number] Pending Review 01/05/2023 01/05/2024 14 14 Encounter Details Date Type Department Care Team (Late st Contact Info) Description 02/24/2023 2:15 PM DOG LICENSER Office Visit [facility] [place] [address] [facility] [address] [place] [phone] Juan Alberto Bañuelos MD [address] [place] [address] Odalys Holguin MD [address] [facility] [address] [place], [place] [id number] affected by growth restriction Social History Tobacco Use Types Packs/Day Years Used Date Smoking Tobacco: Never Adolescent Education Answer Date Record ed Getting School Help Needed Not on file 09/23 /2023 Estimated Date of Delivery Comme nts Yes 05/03/2023 Based on Ultraso und Sex and Gender Information Value Date Recorded Sex Assigned at Not on file Gender Identity Not on file Sexual Orientation Not on file documented as of this encounter Last Filed Vital Signs Vital Sign Reading Time Taken Comments Blood Pressure 84/50 02/24/2023 1:55 PM DOG LICENSER Pulse 58 02/24/2023 1:55 PM DOG LICENSER Temperature - - Respiratory Rate - - Oxygen Saturation 99% 02/24/2023 1:55 PM DOG LICENSER Inhaled Oxygen Concentration - - Weight - - Height - - Body Mass Index - - documented in this encounter Progress Notes * Odalys Holguin MD - 02/24/2023 2:15 PM CST Please see the full imaging report from the ViewPoint program under the imaging tab. Odalys Holguin MD Maternal Medicine LICENSER documented in this encounter Nursing Notes * Ashlie Martin RN - 02/24/2023 2:15 PM CST Patient reports active movement, denies pain, contractions, leaking of fluid, or bleeding. Patient denies headache, visual changes, nausea/vomiting, epigastric pain related to preeclampsia. SBAR given to [facility], see their note in Epic. NST Performed due to FGR. Dr.S Holguin reviewed efm tracing. See NST/BPP Doc Flowsheet tab. LICENSER documented in this encounter Plan of Treatment Not on file documented as of this encounter Visit Diagnoses Diagnosis affected by growth restriction documented in this encounter Care Teams Manager In Training Relationship Specialty Start Date End Date No Ref-Primary, Physician PCP - General 12/25/22 Tessa Elliott MD [address] [place] [address] Assigned OBGYN Provider 01/23/23 documented as of this encounter
--- OUTSIDE RECORDS SUMMARY | 2023-04-25 18:27 | XMS_ITS | Encounter Summary ---
Author Name Unknown Organization [facility] Address [address] [facility] [address] Care Team Providers Care Drag Car Racer Name Role Phone No Ref-Primary, Physician Primary Care Provider Tessa Elliott MD Unavailable [phone] Reason for Referral * Diagnostic Imaging Ultrasound (Routine) - Pending Review Specialty Diagnoses / Procedures Referred By Contac t Referred To Contact Radiology. Diagnoses affected by growth restriction Procedures [facility] US Comprehensive Single F/U Juan Alberto Bañuelos MD [address] [place] [address] Referral ID Status Reason Start Date Expiration Date V isits Requested Visits Authorized [id number] Pending Review 01/27/2023 01/27/2024 1 1 Reason for Visit * Reason Comments Ultrasound NST/RL2/UAR-FGR * Consultation (Routine: Next available opening) - Pending Review Specialty Diagnoses / Procedures Referred By Contac t Referred To Contact Diagnoses affected by growth restriction Juan Alberto Bañuelos MD [address] [place] [address] Referral ID Status Reason Start Date Expiration Date V isits Requested Visits Authorized [id number] Pending Review 01/05/2023 01/05/2024 14 14 Encounter Details Date Type Department Care Team (Late st Contact Info) Description 01/27/2023 10:30 AM CDT Office Visit [facility] [place] [address] [place] [address] Juan Alberto Bañuelos MD [address] [facility] [address] [facility] [address] [facility] [address] [place] [address] affected by growth restriction (Primary [...] on file Sexual Orientation Not on file COVID-19 Exposure Response Date Recorded In the last 10 days, have yo u been in contact with someone who was confirmed or suspected to have Coronavirus/COVID-19? No / Unsure 01/05/2023 9:33 AM CDT documented as of this encounter Last Filed Vital Signs Vital Sign Reading Time Taken Comments Blood Pressure 79/49 01/27/2023 11:16 AM CDT Pulse 56 01/27/2023 10:49 AM CDT Temperature - - Respiratory Rate - - Oxygen Saturation 99% 01/27/2023 10:49 AM CDT Inhaled Oxygen Concentration - - Weight - - Height - - Body Mass Index - - documented in this encounter Progress Notes * Juan Alberto Bañuelos MD - 01/27/2023 10:30 AM CDT Please see Imaging tab under Chart Review for details of today's US at the [facility]. Juan Alberto Bañuelos MD Maternal- Medicine documented in this encounter Nursing Notes * Agustina Echols, ANA MARIA - 01/27/2023 10:30 AM CDT Patient presents to [facility] for NST/RL2/UAR at 26w2d due to FGR. Positive movement. Denies LOF, vaginal bleeding or cramping/contractions. SBAR given to [facility] , see their note in Epic. documented in this encounter Plan of Treatment Not on file documented as of this encounter Results * [facility] US Comprehensive Single F/U (02/17/2023 11:17 AM BLOW MACHINE TENDER [employer]AYING) Anatomical Region Laterality Modality Ultrasound 02/17/2023 10:1 3 AM BLOW MACHINE TENDER [employer]ING Impressions 02/17/2023 2:30 PM BLOW MACHINE TENDER STARCH SPRAYING IMPRESSION ----- 1) Kebede intrauterine at 29w 2d gestational age. 2) None of the anomalies commonly detected by ultrasound were evident in the limited anatomic survey described above. 3) Growth parameters and estimated weight were consistent with growth restriction. 4) The amniotic fluid volume appeared normal. 5) The NST is reactive. 6) The umbilical artery Doppler is within normal limits. Narrative 02/17/2023 2:30 PM BLOW MACHINE TENDER [employer] SPRAYING ?Comp Follow Up ----- Pat. Name: SIR ARROYOAURELIANO ? Study Date: ??02/17/2023 10:13am Pat. NO: ??[id number] ?Referring ??: TORITO MUSTAFA Site: ??[facility] ? Floorhand: ADAN Hernadez: ??1990 ?Age: ?? 32 ----- INDICATION ----- growth restriction (FGR) METHOD ----- Transabdominal ultrasound examination. View: Sufficient ----- Kebede . Number of fetuses: 1 DATING ----- ? Date ?Details ?Gest. age ?KENDRICK LMP ?07/24/2022 ?Cycle: regular cycle ?29 w + 5 d ? 04/30/2023 Prior assessment ? 10/07/2022 ?GA: 10 w + 2 d ? 29 w + 2 d ? 05/03/2023 U/S ? 02/17/2023 ? based upon AC, BPD, Femur, HC ? 27 w + 4 d ? 05/15/2023 Assigned dating ?Dating performed on 01/13/2023, based on the prior assessment (on 10/07/2022) ? 29 w + 2 d ? 05/03/2023 GENERAL EVALUATION ----- Cardiac activity present. FHR 153 bpm. movements present. Presentation cephalic. Placenta Posterior, No Previa, > 2 cm from internal os. Umbilical cord 3 vessel cord. Amniotic fluid Amount of AF: normal. MVP 5.4 cm. BIOMETRY ----- Main Biometry: BPD ?67.9 ?mm ? 27w 2d ?Hadlock OFD ?91.1 ?mm ? 27w 0d ?Nicolaides HC ?253.6 ?mm ?27w 4d ?Hadlock Cerebellum tr ?34.4 ? mm ?29w 5d ?Nicolaides AC ?237.7 ?mm ?28w 1d ?13% ?Hadlock Femur ?50.1 ? mm ?27w 0d ?Hadlock Humerus ?46.4 ?mm ? 27w 3d ?Aminah Weight Calculation: EFW ? 1,097 ?g ? 4% ? Hadlock EFW (lb,oz) ? 2 lb 7 ?oz EFW by ?Hadlock ([id number]) Head / Face / Neck Biometry: Cardiology Coordinator ? 5.9 ? mm CM ?5.1 ? mm ANATOMY ----- The following structures appear normal: Head / Neck ? Cranium. Head size. Head shape. Lateral ventricles. Midline falx. Cavum septi pellucidi. Cerebellum. Cisterna magna. Thalami. Face ? Lips. Profile. Nose. Heart / Thorax ?4-chamber view. RVOT view. LVOT view. 9-dopdjh-jjpihhc view. ? Diaphragm. Abdomen ? Stomach. Kidneys. Bladder. Spine ?Cervical spine. Thoracic spine. Lumbar spine. Sacral spine. Gender: female. DOPPLER ----- Umbilical Artery: normal. Sampling site: midcord PI ?1.01 ?57% ?Jesus HR ?158 ? bpm MATERNAL STRUCTURES ----- Cervix ?Not examined Right Ovary ?Not examined Left Ovary ?Not examined NON STRESS TEST ----- NST interpretation: reactive. Test duration 34 min. Baseline FHR 140 bpm. Baseline variability: moderate. Accelerations: present. Decelerations: absent. Uterine activity: absent RECOMMENDATION ----- We discussed the findings on today's ultrasound with the patient. We reviewed that FGR was again noted on today's US. Given this recommend re-initiation of surveillance with weekly NST, amniotic fluid and UA Doppler assessment at this time and a repeat assessment of growth will be scheduled here in 3 weeks as well. Return to primary provider for continued care. Thank-you for the opportunity to participate in the care of this patient. If you have questions regarding today's evaluation or if we can be of further service, please contact the [facility]. anomalies may be present but not detected I spent a total of 20 minutes on the date of this encounter including preparing to see the patient (reviewing medical records/tests), in direct ivxu-ne-obhh contact with the patient during her visit with the majority spent counseling and discussing the plan of care and documenting the visit in the electronic medical record. Please see note for details. Procedure Note Lyssa Beck MD - 02/17/2023 Comp Follow Up ----- Pat. Name: CESAR ARROYO Study Date: 02/17/2023 10:13am Pat. NO: [id number] Referring MD: TORITO MUSTAFA Site: [facility] Floorhand: Jhony Ross RDMS : 1990 Age: 32 ----- INDICATION ----- growth restriction (FGR) METHOD ----- Transabdominal ultrasound examination. View: Sufficient ----- Kebede . Number of fetuses: 1 DATING ----- DateDetailsGest. age KENDRICK LMP 07/24/2022ycle: regular cycle29 w + 5 d 04/30/2023 Prior assessment 10/07/2022 GA: 10 w+ 2 d29 w + 2 d 05/03/2023 U/S 02/17/2023ased upon AC, BPD, Femur, HC27 w + 4 d 05/15/2023 Assigned dating Dating performed on 01/13/2023, based onthe prior assessment (on 10/07/2022) 29 w + 2 05/03/2023 GENERAL EVALUATION ----- Cardiac activity present. FHR 153 bpm. movements present. Presentation cephalic. Placenta Posterior, No Previa, > 2 cm from internal os. Umbilical cord 3 vessel cord. Amniotic fluid Amount of AF: normal. MVP 5.4 cm. BIOMETRY ----- Main Biometry: BPD 67.9 mm27w 2d Hadlock OFD 91.1 mm27w 0d Nicolaides HC 253.6 mm27w 4d Hadlock Cerebellum tr 34.4 mm29w 5d Nicolaides AC 237.7 mm28w 1d 13% Hadlock Femur 50.1 mm27w 0d Hadlock Humerus 46.4 mm27w 3d Aminah Weight Calculation: EFW 1,097 g4% Hadlock EFW (lb,oz) 2 lb 7 oz EFW by Hadlock ([id number]) Head / Face / Neck Biometry: Cardiology Coordinator 5.9 mm CM 5.1 mm ANATOMY ----- The following structures appear normal: Head / Neck Cranium. Head size. Head shape.Lateral ventricles. Midline falx. Cavum septi pellucidi. Cerebellum.Cisterna magna. Thalami. Face Lips. Profile. Nose. Heart / Thorax 4-chamber view. RVOT view. LVOT view.3-myyhbd-joqylqv view. Diaphragm. Abdomen Stomach. Kidneys. Bladder. Spine Cervical spine. Thoracic spine.Lumbar spine. Sacral spine. Gender: female. DOPPLER ----- Umbilical Artery: normal. Sampling site: midcord PI 1.0157% Jesus HR 158 bpm MATERNAL STRUCTURES ----- Cervix Not examined Right Ovary Not examined Left Ovary Not examined NON STRESS TEST ----- NST interpretation: reactive. Test duration 34 min. Baseline FHR 140 bpm.Baseline variability: moderate. Accelerations: present. Decelerations:absent. Uterine activity: absent RECOMMENDATION ----- We discussed the findings on today's ultrasound with the patient. We reviewed that FGR was again noted on today's US. Given this recommendre- initiation of surveillance with weekly NST, amniotic fluidand UA Doppler assessment at this time and a repeat assessment of growth will bescheduled here in 3 weeks as well. Return to primary provider for continued care. Thank-you for the opportunity to participate in the care of this patient.If you have questions regarding today's evaluation or if we can be offurther service, please contact the [facility]. anomalies may be present but not detected I spent a total of 20 minutes on the date of this encounter includingpreparing to see the patient (reviewing medical records/tests), in pujflbzjqt-jj-cedo contact with the patient during her visit with the majority spent counseling and discussingthe plan of care and documenting the visit in the electronic medicalrecord. Please see note for details. IMPRESSION ----- 1) Kebede intrauterine at 29w 2d gestational age. 2) None of the anomalies commonly detected by ultrasound were evident inthe limited anatomic survey described above. 3) Growth parameters and estimated weight were consistent with fetalgrowth restriction. 4) The amniotic fluid volume appeared normal. 5) The NST is reactive. 6) The umbilical artery Doppler is within normal limits. Juan Alberto Bañuelos MD [facility] US ORDERABL ES documented in this encounter Visit Diagnoses Diagnosis affected by growth restriction- Primary affected by growth restriction documented in this encounter Care Teams Drag Car Racer Relationship Specialty Start Date End Date No Ref-Primary, Physician PCP - General 12/25/22 Tessa Elliott MD [address] [address] Assigned OBGYN Provider 01/23/23 documented as of this encounter
--- OUTSIDE RECORDS SUMMARY | 2023-04-25 18:27 | XMS_ITS | Encounter Summary ---
Author Name Unknown Organization [facility] Address [address] [facility] [place] [address] Care Team Providers Care Preassembler Printed Circuit Board Name Role Phone No Ref-Primary, Physician Primary Care Provider Tessa Elliott MD Unavailable [phone] Encounter Details Date Type Department Care Team (Latest Contact Info) Description 01/27/2023 Travel Social History Tobacco Use Types Packs/Day [...] AM CDT documented as of this encounter Plan of Treatment Not on file documented as of this encounter Visit Diagnoses Not on filedocumented in this encounter Care Teams Preassembler Printed Circuit Board Relationship Specialty Start Date End Date No Ref-Primary, Physician PCP - General 12/25/22 Tessa Elliott MD [address] [facility] [address] [place], [place] [address] Assigned OBGYN Provider 01/23/23 documented as of this encounter
--- OUTSIDE RECORDS SUMMARY | 2023-04-25 18:27 | XMS_ITS | Encounter Summary ---
Author Name Unknown Organization [facility] Address [address] [facility] [place] [address] Care Team Providers Care Press Writer Name Role Phone No Ref-Primary, Physician Primary Care Provider Tessa Elliott MD Unavailable [phone] Encounter Details Date Type Department Care Team (Latest Contact Info) Description 02/24/2023 Travel Social History Tobacco Use Types Packs/Day [...] on filedocumented in this encounter Care Teams Press Writer Relationship Specialty Start Date End Date No Ref-Primary, Physician PCP - General 12/25/22 Tessa Elliott MD [address] [place] [address] Assigned OBGYN Provider 01/23/23 documented as of this encounter
--- OUTSIDE RECORDS SUMMARY | 2023-04-25 18:27 | XMS_ITS | Encounter Summary ---
Author Name Unknown Organization [facility] Address [address] [place] [address] Care Team Providers Care Morphologist Name Role Phone No Ref-Primary, Physician Primary Care Provider Tessa Elliott MD Unavailable [phone] Encounter Details Date Type Department Care Team (Latest Contact Info) Description 02/17/2023 Travel Social History Tobacco Use Types Packs/Day [...] on filedocumented in this encounter Care Teams Morphologist Relationship Specialty Start Date End Date No Ref-Primary, Physician PCP - General 12/25/22 Tessa Elliott MD [address] [place] [address] Assigned OBGYN Provider 01/23/23 documented as of this encounter
--- OUTSIDE RECORDS SUMMARY | 2023-04-25 18:27 | XMS_ITS | Encounter Summary ---
Author Name Unknown Organization [place] Address [address] [facility] [place] [address] Care Team Providers Care Bandmill Operator Name Role Phone No Ref-Primary, Physician Primary Care Provider Tessa Elliott MD Unavailable [phone] Reason for Referral * Diagnostic Imaging Ultrasound (Routine) - Pending Review Specialty Diagnoses / Procedures Referred By Contac t Referred To Contact Radiology. Diagnoses affected by growth restriction Procedures Maternal US Comprehensive Single F/U Lyssa Beck MD [address] [place] [address] Referral ID Status Reason Start Date Expiration Date V isits Requested Visits Authorized [id number] Pending Review 02/17/2023 02/17/2024 1 1 ITAL MORTICIAN * Diagnostic Imaging Ultrasound (Routine) - Pending Review Specialty Diagnoses / Procedures Referred By Contac t Referred To Contact Radiology. Diagnoses affected by growth restriction Procedures Maternal US OB Limited Single/Multiple Lyssa Beck MD [address] [place] [address] Referral ID Status Reason Start Date Expiration Date V isits Requested Visits Authorized [id number] Pending Review 02/17/2023 02/17/2024 1 1 ITAL MORTICIAN * Diagnostic Imaging Ultrasound (Routine) - Pending Review Specialty Diagnoses / Procedures Referred By Contac t Referred To Contact Radiology. Diagnoses affected by growth restriction Procedures Maternal US OB Limited Single/Multiple Lyssa Beck MD [address] [place] [address] Referral ID Status Reason Start Date Expiration Date V isits Requested Visits Authorized [id number] Pending Review 02/17/2023 02/17/2024 1 1 ITAL MORTICIAN Reason for Visit * Reason Comments Ultrasound RL2-Previously FGR t his Encounter Details Date Type Department Care Team (Late st Contact Info) Description 02/17/2023 10:45 AM HOSPITAL MORTICIAN Office Visit [facility] [place] [address] [place] [address] Juan Alberto Bañuelos MD [address] [place] [address] Lyssa Beck MD [address] [place] [address] affected by growth restriction (Primary [...] Sign Reading Time Taken Comments Blood Pressure 95/61 02/17/2023 10:52 AM HOSPITAL MORTICIAN Pulse 97 02/17/2023 10:52 AM HOSPITAL MORTICIAN Temperature - - Respiratory Rate - - Oxygen Saturation 100% 02/17/2023 10:52 AM HOSPITAL MORTICIAN Inhaled Oxygen Concentration - - Weight - - Height - - Body Mass Index - - documented in this encounter Patient Instructions * Patient Instructions* Ashlie Martin RN - 02/17/2023 10:45 AM HOSPITAL MORTICIAN Patient Education Biophysical Profile and Non-Stress Test What are these tests for? You may need these tests if your baby is at risk for certain problems. The tests will check your baby's health. They are often done in the third trimester. You may have one or both tests every week until your baby is born. Some women have them twice a week. What is a biophysical profile? A biophysical profile is an ultrasound exam. The ultrasound will check your baby's: Breathing movements Body movements Muscle tone Amniotic fluid (the fluid around the baby). All of this will tell us how healthy your baby is. This test takes about 30 minutes. What is a non-stress test? This test uses a monitor to measure the baby's heart rate. You will lie back in a chair or on a bed. We will place two belts around your abdomen. The belts are attached to a monitor. This test will record: the baby's heart rate the baby's movements (the heart rate should increase when the baby moves) if your uterus is rolf (contractions, or tightenings, are common as you get closer to your due date). A non-stress test takes about 30 minutes. How do I get ready for these tests? Don't smoke for at least 2 hours before these tests. In fact, you should quit smoking if you are . When will I get my results? You will have your results before you leave the clinic. What if my baby doesn't pass these tests? Most tests come out well. If your results are not reassuring, your care team will talk to you aboutyour options. You may need to go to the hospital birthplace, where we can watch you more closely. For informational purposes only. Not to replace the advice of your health care provider. Copyright ?? 1999, 2004 [facility]. Clinically reviewed by Maternal- Medicine Department. All rights reserved. [employer] [id number] - REV 01/23. ITAL MORTICIAN documented in this encounter Progress Notes * Lyssa Beck MD - 02/17/2023 10:45 AM CST Please see Imaging tab under Chart Review for details of today's visit. Lyssa Beck ITAL MORTICIAN documented in this encounter Nursing Notes * Ashlie Martin RN - 02/17/2023 10:45 AM CST Patient reports active movement, denies pain, contractions, leaking of fluid, or bleeding. Patient denies headache, visual changes, nausea/vomiting, epigastric pain related to preeclampsia. Education provided to patient on FGR surveillance. SBAR given to [facility] KELLY, see their note in Epic. NST Performed due to FGR. reviewed efm tracing. See NST/BPP Doc Flowsheet tab. ITAL MORTICIAN documented in this encounter Plan of Treatment Not on file documented as of this encounter Results * Maternal US Comprehensive Single F/U (03/10/2023 12:16 PM HOSPITAL MORTICIAN) Anatomical Region Laterality Modality Ultrasound 03/10/2023 11:4 4 AM HOSPITAL MORTICIAN Impressions 03/10/2023 12:29 PM HOSPITAL MORTICIAN IMPRESSION ----- 1. Kebede intrauterine at 32w [...] reactive and reassuring. Narrative 03/10/2023 12:29 PM HOSPITAL MORTICIAN ?Comp Follow Up ----- Pat. Name: CESAR ARROYO ? Study Date: ??03/10/2023 11:44am Pat. NO: ??[id number] ?Referring ??MD: TORITO MUSTAFA Site: ??[place] ? [place]: Trisha Calle RDMS : ??1990 ?Age: ?? [...] Biometry: BPD ?73.1 ?mm ? 29w 2d ?Polo VALE ?96.7 ?mm ? 28w 4d ?Nicolaides HC ?272.3 ?mm ?29w 5d ?Hadlock Cerebellum tr ?40.3 ? mm ?34w 2d ?Nicolaides AC ?269.5 ?mm ?31w 0d ?16% ?Hadlock Femur ?57.4 ? mm ?30w 1d ?Hadlock Humerus ?50.7 ?mm ? 29w 5d ?Aminah Weight Calculation: EFW ? 1,579 ?g ? 5% ? Hadlock EFW (lb,oz) ? 3 lb 8 ?oz EFW by ?Hadlock ([id number]-WA-WF-FL) Head / Face / Neck Biometry: Mid Level Clinician ? 3.0 ? mm CM ?6.7 ? [...] structures were documented previously: Heart / Thorax ?0-jzjyxr-fdgubzc view. Gender: female. DOPPLER ----- Umbilical Artery: [...] the patient (reviewing medical records/tests), in direct lles-sv-ptxy contact with the patient during her visit with the majority spent counseling and discussing the plan of care and documenting the visit in the electronic medical record. Please see note for details. Procedure Note Annel Holguin MD - 03/10/2023 Comp Follow Up ----- Pat. Name: CESAR ARROYO Study Date: 03/10/2023 11:44am Pat. NO: [id number] Referring MD: TORITO MUSTAFA Site: [facility] Correction Officer [place]: Trisha Calle RDMS : 1990 Age: 32 [...] 3 lb 8 oz EFW by Hadlock (DHA-DC-OF-FL) Head / Face / Neck Biometry: Mid Level Clinician 3.0 mm CM 6.7 mm Extremities / [...] structures were documented previously: Heart / Thorax 2-kkcvzp-xfapmyw view. Gender: female. DOPPLER ----- Umbilical Artery: [...] see the patient (reviewing medical records/tests), in kmaknjuwcj-bf-pggh contact with the patient during her visit [...] was reactive and reassuring. Lyssa Beck MD [facility] US ORDERABLE S * Maternal US OB Limited Single/Multiple (03/03/2023 2:16 PM HOSPITAL MORTICIAN) Anatomical Region Laterality Modality Ultrasound 03/03/2023 1:51 PM HOSPITAL MORTICIAN Impressions 03/03/2023 3:53 PM HOSPITAL MORTICIAN IMPRESSION ----- 1) Normal amniotic fluid volume. 2) Normal umbilical artery doppler flow studies. 3) Reactive NST without decelerations. Narrative 03/03/2023 3:53 PM HOSPITAL MORTICIAN ?Limited ----- Pat. Name: CESAR ARROYO ? Study Date: ??03/03/2023 1:51pm Pat. NO: ??[id number] ?Referring ??MD: TORITO MUSTAFA Site: ??[place] ? [employer] [place]: Jose L Ramirez RDMS : ??1990 ?Age: [...] MD - 03/03/2023 Limited ----- Pat. Name: CESAR ARROYO Study Date: 03/03/2023 1:51pm Pat. NO: [id number] Referring MD: TORITO MUSTAFA Site: [facility] Correction Officer [place]: Jose L Ramirez RDMS : 1990 Age: [...] Reactive NST without decelerations. Lyssa Beck MD [facility] US ORDERABLE S * Maternal US OB Limited Single/Multiple (02/24/2023 2:33 PM HOSPITAL MORTICIAN) Anatomical Region Laterality Modality Ultrasound 02/24/2023 1:38 PM HOSPITAL MORTICIAN Impressions 02/24/2023 2:22 PM HOSPITAL MORTICIAN IMPRESSION ----- 1. Kebede intrauterine at 30w 2d with growth restriction (EFW 4% on 02/17/23) here for surveillance. 2. The amniotic fluid volume appeared normal. 3. The umbilical artery dopplers were within normal limits. 4. The NST was reactive and reassuring. Narrative 02/24/2023 2:22 PM HOSPITAL MORTICIAN ?Limited ----- Pat. Name: CESAR ARROYO ? Study Date: ??02/24/2023 1:38pm Pat. NO: ??[id number] ?Referring ??MD: TORITO MUSTAFA Site: ??[place] ? [employer] [place]: Elissa Clarke RDMS : ??1990 ?Age: ?? 32 ----- INDICATION ----- growth restriction (FGR) METHOD ----- Transabdominal ultrasound examination. View: Sufficient ----- Kebede . Number of fetuses: 1 DATING ----- ? Date ?Details ?Gest. age ?KENDRICK LMP ?07/24/2022 ?Cycle: regular cycle ?30 w + 5 d ? 04/30/2023 Prior assessment ? 10/07/2022 ?GA: 10 w + 2 d ? 30 w + 2 d ? 05/03/2023 Assigned dating ?Dating performed on 02/24/2023, based on the prior assessment (on 10/07/2022) ? 30 w + 2 d ? 05/03/2023 GENERAL EVALUATION ----- Cardiac activity present. FHR 147 bpm. movements visualized. Presentation cephalic. Placenta Posterior. Umbilical cord previously studied. Amniotic fluid Amount of AF: normal. MVP 7.6 cm. DOPPLER ----- Umbilical Artery: normal PI ?0.94 ?49% ? Jesus HR ?147 ? bpm NON STRESS TEST ----- NST interpretation: reactive. Test duration 30 min. Baseline FHR 140 bpm. Baseline variability: moderate. Accelerations: present. Decelerations: absent. Uterine activity: absent RECOMMENDATION ----- Thank-you for referring your patient for surveillance in the setting of growth restriction. We discussed the findings on today's ultrasound with the patient. Continue weekly surveillance/UA Dopplers and growth evaluation every 3 weeks. Return to primary provider for continued care. If you have questions regarding today's evaluation or if we can be of further service, please contact the Maternal- Medicine Center. anomalies may be present but not detected Procedure Note Odalys Holguin MD - 02/24/2023 Limited ----- Pat. Name: CESAR ARROYO Study Date: 02/24/2023 1:38pm Pat. NO: [id number] Referring MD: TORITO MUSTAFA Site: [facility] Correction [place]: Elissa Clarke RDMS : 1990 Age: 32 ----- INDICATION ----- growth restriction (FGR) METHOD ----- Transabdominal ultrasound examination. View: Sufficient ----- Kebede . Number of fetuses: 1 DATING ----- DateDetailsGest. age KENDRICK LMP 07/24/2022ycle: regular cycle30 w + 5 d 04/30/2023 Prior assessment 10/07/2022 GA: 10 w+ 2 d30 w + 2 d 05/03/2023 Assigned dating Dating performed on 02/24/2023, based onthe prior assessment (on 10/07/2022) 30 w + 2 05/03/2023 GENERAL EVALUATION ----- Cardiac activity present. FHR 147 bpm. movements visualized. Presentation cephalic. Placenta Posterior. Umbilical cord previously studied. Amniotic fluid Amount of AF: normal. MVP 7.6 cm. DOPPLER ----- Umbilical Artery: normal PI 0.9449% Jesus HR 147 bpm NON STRESS TEST ----- NST interpretation: reactive. Test duration 30 min. Baseline FHR 140 bpm.Baseline variability: moderate. Accelerations: present. Decelerations:absent. Uterine activity: absent RECOMMENDATION ----- Thank-you for referring your patient for surveillance in thesetting of growth restriction. We discussed the findings on today's ultrasound with the patient. Continue weekly surveillance/UA Dopplers and growth evaluationevery 3 weeks. Return to primary provider for continued care. If you have questions regarding today's evaluation or if we can be offurther service, please contact the Maternal- Medicine Center. anomalies may be present but not detected IMPRESSION ----- 1. Kebede intrauterine at 30w 2d with growthrestriction (EFW 4% on 02/17/23) here for surveillance. 2. The amniotic fluid volume appeared normal. 3. The umbilical artery dopplers were within normal limits. 4. The NST was reactive and reassuring. Lyssa Beck MD [facility] US ORDERABLE S documented in this encounter Visit Diagnoses Diagnosis affected by growth restriction- Primary affected by growth restriction affected by growth restriction affected by growth restriction documented in this encounter Care Teams Bandmill Operator Relationship Specialty Start Date End Date No Ref-Primary, Physician PCP - General 12/25/22 Tessa Elliott MD [address] [place] [address] Assigned OBGYN Provider 01/23/23 documented as of this encounter
--- OUTSIDE RECORDS SUMMARY | 2023-04-25 18:27 | XMS_ITS | Encounter Summary ---
Author Name Unknown Organization [place] Address [address] [facility] [place] [address] Care Team Providers Care Neon Glass Bender Name Role Phone No Ref-Primary, Physician Primary Care Provider Odalys Holguin MD Unavailable Encounter Details Date Type Department Care Team (Latest Contact Info) Description 03/19/2023 Travel Social History Tobacco Use Types Packs/Day [...] on filedocumented in this encounter Care Teams Neon Glass Bender Relationship Specialty Start Date End Date No Ref-Primary, Physician PCP - General 12/25/22 Odalys Holguin MD [address] [place] [address] [address] [place] [address] Assigned OBGYN Provider 03/06/23 documented as of this encounter
--- OUTSIDE RECORDS SUMMARY | 2023-04-25 18:27 | XMS_ITS | Encounter Summary ---
Author Name Unknown Organization [place] Address [address] [facility] [place] [address] Care Team Providers Care Telephone Ad Taker Name Role Phone No Ref-Primary, Physician Primary Care Provider Odalys Holguin MD Unavailable Reason for Visit * Reason Comments Ultrasound NST/Limited/UAR-FGR * Consultation (Routine: Next available opening) - Pending Review Specialty Diagnoses / Procedures Referred By Contac t Referred To Contact Diagnoses affected by growth restriction Juan Alberto Bañuelos MD [address] [place] [address] Referral ID Status Reason Start Date Expiration Date V isits Requested Visits Authorized [id number] Pending Review 01/05/2023 01/05/2024 14 14 Encounter Details Date Type Department Care Team (Late st Contact Info) Description 03/24/2023 8:15 AM HEAD OF BUSINESS DEVELOPMENT Office Visit [facility] [place] [address] [place] [phone] Juan Alberto Bañuelos MD [address] [place] [address] affected by growth restriction (Primary [...] Sign Reading Time Taken Comments Blood Pressure 86/56 03/24/2023 8:27 AM HEAD OF BUSINESS DEVELOPMENT Pulse 60 03/24/2023 8:27 AM HEAD OF BUSINESS DEVELOPMENT Temperature - - Respiratory Rate - - Oxygen Saturation 100% 03/24/2023 8:27 AM HEAD OF BUSINESS DEVELOPMENT Inhaled Oxygen Concentration - - Weight - - Height - - Body Mass Index - - documented in this encounter Progress Notes * Juan Alberto Bañuelos MD - 03/24/2023 8:15 AM CST Please see Imaging tab under Chart Review for details of today's US at the [facility]. Juan Alberto Bañuelos MD Maternal- Medicine OF BUSINESS DEVELOPMENT documented in this encounter Nursing Notes * Ashlie Martin RN - 03/24/2023 8:15 AM CST Patient reports active movement, denies pain, contractions, leaking of fluid, or bleeding. Patient denies headache, visual changes, nausea/vomiting, epigastric pain related to preeclampsia. SBAR given to [facility] MD, see their note in Epic. NST Performed due to FGR. reviewed efm tracing. See NST/BPP Doc Flowsheet tab. OF BUSINESS DEVELOPMENT documented in this encounter Plan of Treatment Not on file documented as of this encounter Visit Diagnoses Diagnosis affected by growth restriction- Primary documented in this encounter Care Teams Telephone Ad Taker Relationship Specialty Start Date End Date No Ref-Primary, Physician PCP - General 12/25/22 Odalys Holguin MD [address] [place] [address] Assigned OBGYN Provider 03/06/23 documented as of this encounter
--- OUTSIDE RECORDS SUMMARY | 2023-04-25 18:27 | XMS_ITS | Encounter Summary ---
Author Name Unknown Organization [place] Address [address] [facility] [place] [address] Care Team Providers Care Felt Cutting Machine Operator Name Role Phone No Ref-Primary, Physician Primary Care Provider Odalys Holguin MD Unavailable Encounter Details Date Type Department Care Team (Latest Contact Info) Description 03/10/2023 Travel Social History Tobacco Use Types Packs/Day [...] on filedocumented in this encounter Care Teams Felt Cutting Machine Operator Relationship Specialty Start Date End Date No Ref-Primary, Physician PCP - General 12/25/22 Odalys Holguin MD [address] [place] [address] [address] [place] [address] Assigned OBGYN Provider 03/06/23 documented as of this encounter
--- OUTSIDE RECORDS SUMMARY | 2023-04-25 18:27 | XMS_ITS | Encounter Summary ---
Author Name Unknown Organization [place] Address [address] [facility] [place] [address] Care Team Providers Care Facing Grinder Name Role Phone No Ref-Primary, Physician Primary Care Provider Tessa Elliott MD Unavailable [phone] Reason for Referral * Diagnostic Imaging Ultrasound (Routine) - Pending Review Specialty Diagnoses / Procedures Referred By Contac t Referred To Contact Radiology. Diagnoses affected by growth restriction Procedures [facility] US Comprehensive Single F/U Juan Alberto Bañuelos MD [address] [place] [address] Referral ID Status Reason Start Date Expiration Date V isits Requested Visits Authorized [id number] Pending Review 01/05/2023 01/05/2024 1 1 Reason for Visit * Diagnostic Imaging Ultrasound (Routine) - Pending Review Specialty Diagnoses / Procedures Referred By Contac t Referred To Contact Radiology. Diagnoses affected by growth restriction Procedures [facility] US Comprehensive Single F/U Juan Alberto Bañuelos MD [address] [place] [address] Referral ID Status Reason Start Date Expiration Date V isits Requested Visits Authorized [id number] Pending Review 01/05/2023 01/05/2024 1 1 Encounter Details Date Type Department Care Team (Latest Contact Info) Description 01/27/2023 10:41 AM CDT - 01/27/2023 11:59 PM CDT Hospital [facility] [place] [address] [facility] [address] [place] [address] Juan Alberto Bañuelos MD [address] [place] [address] affected by growth restriction Discharge [...] AM CDT documented as of this encounter Medications at [...] Procedure Name Priority Date/Time Associated Diagnosis Comments [facility] US COMPREHENSIVE SINGLE F/U Routine 01/27/2023 11:36 AM CDT affected by growth restriction documented in this encounter Results * [facility] US Comprehensive Single F/U (01/27/2023 11:36 AM CDT) Anatomical Region Laterality Modality Ultrasound 01/27/2023 11:0 0 AM CDT Impressions 01/27/2023 12:01 PM CDT IMPRESSION ----- 1) Growth parameters and estimated weight were consistent with appropriate for gestational age pattern of growth. 2) anatomy appeared normal for gestational age. 3) Normal amniotic fluid volume. 4) Reactive NST. Narrative 01/27/2023 12:01 PM CDT ?Comp Follow Up ----- Pat. Name: ANNA ARROYOJOSEFA ? Study Date: ??01/27/2023 11:00am Pat. NO: ??[id number] ?Referring ??: TORITO MUSTAFA Site: [facility] ? Production Recorder: Trisha Calle RDMS : ??1990 ?Age: ?? 32 ----- INDICATION ----- growth restriction (FGR) METHOD ----- Transabdominal ultrasound examination. View: Sufficient ----- Kebede . Number of fetuses: 1 DATING ----- ? Date ?Details ?Gest. age ?KENDRICK LMP ?07/24/2022 ?Cycle: regular cycle ?26 w + 5 d ? 04/30/2023 Prior assessment ? 10/07/2022 ?GA: 10 w + 2 d ? 26 w + 2 d ? 05/03/2023 U/S ? 01/27/2023 ? based upon AC, BPD, Femur, HC ?24 w + 6 d ? 05/13/2023 Assigned dating ?Dating performed on 01/13/2023, based on the prior assessment (on 10/07/2022) ? 26 w + 2 d ? 05/03/2023 GENERAL EVALUATION ----- Cardiac activity present. FHR 153 bpm. movements present. Presentation cephalic. Placenta Placental site: posterior, no previa > 2 cm from internal os. Umbilical cord 3 vessel cord. Amniotic fluid Amount of AF: normal. MVP 5.2 cm. BIOMETRY ----- Main Biometry: BPD ?58.0 ?mm ? 23w 5d ?Hadlock OFD ?81.0 ?mm ? 24w 3d ?Nicolaides HC ?223.4 ?mm ?24w 3d ?Hadlock Cerebellum tr ?29.0 ? mm ?26w 0d ?Nicolaides AC ?207.3 ?mm ?25w 2d ?15% ?Hadlock Femur ?47.1 ? mm ?25w 5d ?Hadlock Weight Calculation: EFW ? 790 ? g ? 10% ?Hadlock EFW (lb,oz) ? 1 lb 12 ? oz EFW by ?Hadlock ([id number]) Head / Face / Neck Biometry: Animal Trainer Supervisor ? 5.9 ? mm CM ?4.1 ? mm ANATOMY ----- The following structures appear normal: Head / Neck ? Cranium. Head size. Head shape. Lateral ventricles. Midline falx. Cavum septi pellucidi. Cerebellum. Cisterna magna. Thalami. Face ? Lips. Profile. Nose. Heart / Thorax ?4-chamber view. RVOT view. LVOT view. 7-wkjuia-gqplaqg view. ? Diaphragm. Abdomen ? Stomach. Kidneys. Bladder. Spine ?Cervical spine. Thoracic spine. Lumbar spine. Sacral spine. MATERNAL STRUCTURES ----- Cervix ?Suboptimal Right Ovary ?Not examined Left Ovary ?Not examined NON STRESS TEST ----- NST interpretation: reactive. Test duration 20 min. Baseline FHR 145 bpm. Baseline variability: moderate. Accelerations: present. Decelerations: absent. Uterine activity: absent. Acoustic stimulation: no RECOMMENDATION ----- We discussed the findings on today's ultrasound with the patient. Given that the EFW and AC growth ar >/= 10%tile we will reassess growth in 3 weeks. Return to primary provider for continued care. Thank-you for the opportunity to participate in the care of this patient. If you have questions regarding today's evaluation or if we can be of further service, please contact the [facility]. anomalies may be present but not detected Procedure Note Juan Alberto Bañuelos MD - 01/27/2023 Comp Follow Up ----- Pat. Name: JOEY ARROYO Study Date: 01/27/2023 11:00am Pat. NO: [id number] Referring MD: TORITO MUSTAFA Site: [facility] Production Recorder: Trisha Calle RDMS : 1990 Age: 32 ----- INDICATION ----- growth restriction (FGR) METHOD ----- Transabdominal ultrasound examination. View: Sufficient ----- Kebede . Number of fetuses: 1 DATING ----- DateDetailsGest. age KENDRICK LMP 07/24/2022ycle: regular cycle26 w + 5 d 04/30/2023 Prior assessment 10/07/2022 GA: 10 w+ 2 d26 w + 2 d 05/03/2023 U/S 01/27/2023ased upon AC, BPD, Femur, HC24 w + 6 d 05/13/2023 Assigned dating Dating performed on 01/13/2023, based onthe prior assessment (on 10/07/2022) 26 w + 2 05/03/2023 GENERAL EVALUATION ----- Cardiac activity present. FHR 153 bpm. movements present. Presentation cephalic. Placenta Placental site: posterior, no previa > 2 cm from internal os. Umbilical cord 3 vessel cord. Amniotic fluid Amount of AF: normal. MVP 5.2 cm. BIOMETRY ----- Main Biometry: BPD 58.0 mm23w 5d Hadlock OFD 81.0 mm24w 3d Nicolaides HC 223.4 mm24w 3d Hadlock Cerebellum tr 29.0 mm26w 0d Nicolaides AC 207.3 mm25w 2d 15% Hadlock Femur 47.1 mm25w 5d Hadlock Weight Calculation: EFW 790 g10% Hadlock EFW (lb,oz) 1 lb 12 oz EFW by Hadlock ([id number]-IJ-GO-FL) Head / Face / Neck Biometry: Animal Trainer Supervisor 5.9 mm CM 4.1 mm ANATOMY ----- The following structures appear normal: Head / Neck Cranium. Head size. Head shape.Lateral ventricles. Midline falx. Cavum septi pellucidi. Cerebellum.Cisterna magna. Thalami. Face Lips. Profile. Nose. Heart / Thorax 4-chamber view. RVOT view. LVOT view.4-mfzvqg-dustndx view. Diaphragm. Abdomen Stomach. Kidneys. Bladder. Spine Cervical spine. Thoracic spine.Lumbar spine. Sacral spine. MATERNAL STRUCTURES ----- Cervix Suboptimal Right Ovary Not examined Left Ovary Not examined NON STRESS TEST ----- NST interpretation: reactive. Test duration 20 min. Baseline FHR 145 bpm.Baseline variability: moderate. Accelerations: present. Decelerations:absent. Uterine activity: absent. Acoustic stimulation: no RECOMMENDATION ----- We discussed the findings on today's ultrasound with the patient. Given that the EFW and AC growth ar >/= 10%tile we will reassess fetalgrowth in 3 weeks. Return to primary provider for continued care. Thank-you for the opportunity to participate in the care of this patient.If you have questions regarding today's evaluation or if we can be offurther service, please contact the [facility]. anomalies may be present but not detected IMPRESSION ----- 1) Growth parameters and estimated weight were consistent withappropriate for gestational age pattern of growth. 2) anatomy appeared normal for gestational age. 3) Normal amniotic fluid volume. 4) Reactive NST. Juan Alberto Bañuelos MD IMG [facility] US ORDERABL ES documented in this encounter Visit Diagnoses Diagnosis affected by growth restriction documented in this encounter Care Teams Facing Grinder Relationship Specialty Start Date End Date No Ref-Primary, Physician PCP - General 12/25/22 Tessa Elliott MD [address] [address] Assigned OBGYN Provider 01/23/23 documented as of this encounter
--- OUTSIDE RECORDS SUMMARY | 2023-04-25 18:27 | XMS_ITS | Encounter Summary ---
Author Name Unknown Organization [place] Address [address] [facility] [place] [address] Care Team Providers Care Rigging And Controls Aircraft Mechanic Name Role Phone No Ref-Primary, Physician Primary Care Provider Odalys Holguin MD Unavailable Reason for Referral * Diagnostic Imaging Ultrasound (Routine) - Pending Review Specialty Diagnoses / Procedures Referred By Contac t Referred To Contact Radiology. Diagnoses affected by growth restriction Procedures [facility] US OB Limited Single/Multiple Annel Holguin MD [address] [facility] [address] [place] [id number] Referral ID Status Reason Start Date Expiration Date V isits Requested Visits Authorized [id number] Pending Review 03/10/2023 03/09/2024 1 1 MENTAL METAL FABRICATOR APPRENTICE Reason for Visit * Diagnostic Imaging Ultrasound (Routine) - Pending Review Specialty Diagnoses / Procedures Referred By Contac t Referred To Contact Radiology. Diagnoses affected by growth restriction Procedures [facility] OB Limited Single/Multiple Annel Holguin MD [address] [place] [address] Referral ID Status Reason Start Date Expiration Date V isits Requested Visits Authorized [id number] Pending Review 03/10/2023 03/09/2024 1 1 Encounter Details Date Type Department Care Team (Latest Contact Info) Description 03/19/2023 2:33 PM ORNAMENTAL METAL FABRICATOR APPRENTICE - 03/19/2023 11:59 PM ORNAMENTAL METAL FABRICATOR APPRENTICE Hospital Encounter [facility] [place] [address] [place] [address] Annel Holguin MD [address] [place] [address] Richard Zhang MD [address] [place] [address] affected by growth restriction Discharge [...] Procedure Name Priority Date/Time Associated Diagnosis Comments M US OB LIMITED SINGLE/MULTIPLE Routine 03/19/2023 3:22 PM ORNAMENTAL METAL FABRICATOR APPRENTICE affected by growth restriction documented in this encounter Results * [facility] US OB Limited Single/Multiple (03/19/2023 3:22 PM ORNAMENTAL METAL FABRICATOR APPRENTICE) Anatomical Region Laterality Modality Ultrasound 03/19/2023 3:05 PM ORNAMENTAL METAL FABRICATOR APPRENTICE Impressions 03/19/2023 4:27 PM ORNAMENTAL METAL FABRICATOR APPRENTICE IMPRESSION ----- 1. Kebede intrauterine at 33w 4d with growth restriction (EFW 5% on 03/10/23) here for surveillance. 2. The amniotic fluid volume appeared normal. 3. The umbilical artery dopplers were within normal limits. 4. The NST was reactive and reassuring. Narrative 03/19/2023 4:27 PM ORNAMENTAL METAL FABRICATOR APPRENTICE ?Limited ----- Pat. Name: JOEY ARROYO ? Study Date: ??03/19/2023 3:05pm Pat. NO: ??[id number] ?Referring ??MD: TORITO MUSTAFA Site: [facility] ? Baton Twirler: Jhony Ross RDMS : ??1990 ?Age: ?? 32 ----- INDICATION ----- Growth Restriction (FGR) METHOD ----- Transabdominal ultrasound examination. View: Sufficient ----- Kebede . Number of fetuses: 1 DATING ----- ? Date ?Details ?Gest. age ?KENDRICK LMP ?07/24/2022 ?Cycle: regular cycle ?34 w + 0 d ? 04/30/2023 Prior assessment ? 10/07/2022 ?GA: 10 w + 2 d ? 33 w + 4 d ? 05/03/2023 Assigned dating ?Dating performed on 03/03/2023, based on the prior assessment (on 10/07/2022) ? 33 w + 4 d ? 05/03/2023 GENERAL EVALUATION ----- Cardiac activity present. FHR 140 bpm. movements visualized. Presentation cephalic. Placenta Posterior. Umbilical cord previously studied. Amniotic fluid Amount of AF: normal. MVP 5.8 cm. DOPPLER ----- Umbilical Artery: normal. Sampling site: midcord PI ?1.15 ?91% ? Jesus HR ?134 ? bpm MATERNAL STRUCTURES ----- Right Ovary ?Not examined Left Ovary ?Not examined NON STRESS TEST ----- NST interpretation: reactive. Test duration 22 min. Baseline FHR 130 bpm. Baseline variability: moderate. Accelerations: present. Decelerations: absent. Uterine activity: absent RECOMMENDATION ----- Thank-you for referring your patient for surveillance in the setting of growth restriction. Continue weekly surveillance/UA Dopplers and growth evaluation every 3 weeks. Return to primary provider for continued care. If you have questions regarding today's evaluation or if we can be of further service, please contact the [facility]. anomalies may be present but not detected Procedure Note Richard Zhang MD - 03/19/2023 Limited ----- Pat. Name: JOEY ARROYO Study Date: 03/19/2023 3:05pm Pat. NO: [id number] Referring MD: TORITO MUSTAFA Site: [facility] Baton Twirler: Jhony Ross RDMS : 1990 Age: 32 ----- INDICATION ----- Growth Restriction (FGR) METHOD ----- Transabdominal ultrasound examination. View: Sufficient ----- Kebede . Number of fetuses: 1 DATING ----- DateDetailsGest. age KENDRICK LMP 07/24/2022ycle: regular cycle34 w + 0 d 04/30/2023 Prior assessment 10/07/2022 GA: 10 w+ 2 d33 w + 4 d 05/03/2023 Assigned dating Dating performed on 03/03/2023, based onthe prior assessment (on 10/07/2022) 33 w + 4 05/03/2023 GENERAL EVALUATION ----- Cardiac activity present. FHR 140 bpm. movements visualized. Presentation cephalic. Placenta Posterior. Umbilical cord previously studied. Amniotic fluid Amount of AF: normal. MVP 5.8 cm. DOPPLER ----- Umbilical Artery: normal. Sampling site: [facility] PI 1.1591% Jesus HR 134 bpm MATERNAL STRUCTURES ----- Right Ovary Not examined Left Ovary Not examined NON STRESS TEST ----- NST interpretation: reactive. Test duration 22 min. Baseline FHR 130 bpm.Baseline variability: moderate. Accelerations: present. Decelerations:absent. Uterine activity: absent RECOMMENDATION ----- Thank-you for referring your patient for surveillance in thesetting of growth restriction. Continue weekly surveillance/UA Dopplers and growth evaluationevery 3 weeks. Return to primary provider for continued care. If you have questions regarding today's evaluation or if we can be offurther service, please contact the [facility]. anomalies may be present but not detected IMPRESSION ----- 1. Kebede intrauterine at 33w 4d with growthrestriction (EFW 5% on 03/10/23) here for surveillance. 2. The amniotic fluid volume appeared normal. 3. The umbilical artery dopplers were within normal limits. 4. The NST was reactive and reassuring. Annel Holguin MD IMG [facility] US ORDERABLE S documented in this encounter Visit Diagnoses Diagnosis affected by growth restriction documented in this encounter Care Teams Rigging And Controls Aircraft Mechanic Relationship Specialty Start Date End Date No Ref-Primary, Physician PCP - General 12/25/22 Odalys Holguin MD [address] [place] [id number] Assigned OBGYN Provider 03/06/23 documented as of this encounter
--- OUTSIDE RECORDS SUMMARY | 2023-04-25 18:27 | XMS_ITS | Encounter Summary ---
Author Name Unknown Organization [place] Address [address] [facility] [place] [address] Care Team Providers Care Land Leveler Name Role Phone No Ref-Primary, Physician Primary Care Provider Odalys Holguin MD Unavailable Reason for Visit * Reason Comments Ultrasound NST/limited/UAR-FGR * Consultation (Routine: Next available opening) - Pending Review Specialty Diagnoses / Procedures Referred By Contac t Referred To Contact Diagnoses affected by growth restriction Juan Alberto Bañuelos MD [address] [place] [address] Referral ID Status Reason Start Date Expiration Date V isits Requested Visits Authorized [id number] Pending Review 01/05/2023 01/05/2024 14 14 Encounter Details Date Type Department Care Team (Late st Contact Info) Description 03/19/2023 2:30 PM LOCATION DIRECTOR Office Visit [facility] [place] [address] [facility] [address] [place] [phone] Juan Alberto Bañuelos MD [address] [place] [address] Richard Zhang MD [address] [place] [address] affected by growth restriction Social History Tobacco [...] Sign Reading Time Taken Comments Blood Pressure 91/57 03/19/2023 3:16 PM LOCATION DIRECTOR Pulse 64 03/19/2023 3:16 PM LOCATION DIRECTOR Temperature - - Respiratory Rate - - Oxygen Saturation 100% 03/19/2023 3:16 PM LOCATION DIRECTOR Inhaled Oxygen Concentration - - Weight - - Height - - Body Mass Index - - documented in this encounter Progress Notes * Richard Zhang MD - 03/19/2023 2:30 PM CST Please see full imaging report from ViewPoint program under imaging tab. Richard Zhang MD Maternal Medicine TION DIRECTOR documented in this encounter Nursing Notes * Agustina Echols RN - 03/19/2023 2:30 PM CST Patient presents to [facility] for NST/Limited/UAR at 33w4d due to FGR. Positive movement. Denies LOF, vaginal bleeding or cramping/contractions. SBAR given to M MD, see their note in Epic. TION DIRECTOR documented in this encounter Plan of Treatment Not on file documented as of this encounter Visit Diagnoses Diagnosis affected by growth restriction documented in this encounter Care Teams Land Leveler Relationship Specialty Start Date End Date No Ref-Primary, Physician PCP - General 12/25/22 Odalys Holguin MD [address] [place] [id number] Assigned OBGYN Provider 03/06/23 documented as of this encounter
--- OUTSIDE RECORDS SUMMARY | 2023-04-25 18:27 | XMS_ITS | Encounter Summary ---
Author Name Unknown Organization [place] Address [address] [place] [address] Care Team Providers Care Roving Teller Name Role Phone No Ref-Primary, Physician Primary Care Provider Tsesa Elliott MD Unavailable [phone] Reason for Referral * Diagnostic Imaging Ultrasound (Routine) - Pending Review Specialty Diagnoses / Procedures Referred By Contac t Referred To Contact Radiology. Diagnoses affected by growth restriction Procedures Maternal US OB Limited Single/Multiple Lyssa Beck MD [address] [facility] [address] [place] [address] Referral ID Status Reason Start Date Expiration Date V isits Requested Visits Authorized [id number] Pending Review 02/17/2023 02/17/2024 1 1 ER Reason for Visit * Diagnostic Imaging Ultrasound (Routine) - Pending Review Specialty Diagnoses / Procedures Referred By Contac t Referred To Contact Radiology. Diagnoses affected by growth restriction Procedures Maternal US OB Limited Single/Multiple Lyssa Beck MD [address] [place] [address] Referral ID Status Reason Start Date Expiration Date V isits Requested Visits Authorized [id number] Pending Review 02/17/2023 02/17/2024 1 1 Encounter Details Date Type Department Care Team (Latest Contact Info) Description 02/24/2023 1:30 PM NICKER - 02/24/2023 11:59 PM NICKER Hospital Encounter [facility] [place] [address] [place] [address] Lyssa Beck MD [address] [place] [address] Odalys Holguin MD [address] [facility] [address] [place] [address] affected by growth restriction Discharge Disposition: Home [...] Comments MFM US OB LIMITED SINGLE/MULTIPLE Routine 02/24/2023 2:33 PM NICKER affected by growth restriction documented in this encounter Results * Maternal US OB Limited Single/Multiple (02/24/2023 2:33 PM NICKER) Anatomical Region Laterality Modality Ultrasound 02/24/2023 1:38 PM NICKER Impressions 02/24/2023 2:22 PM NICKER IMPRESSION ----- 1. Kebede intrauterine at 30w 2d with growth restriction (EFW 4% on 02/17/23) here for surveillance. 2. The amniotic fluid volume appeared normal. 3. The umbilical artery dopplers were within normal limits. 4. The NST was reactive and reassuring. Narrative 02/24/2023 2:22 PM NICKER ?Limited ----- Pat. Name: ANNA ARROYOJOSEFA ? Study Date: ??02/24/2023 1:38pm Pat. NO: ??[id number] ?Referring ??MD: TORITO MUSTAFA Site: [facility] ? Central Office Maintainer: Elissa Clarke RDMS : ??1990 ?Age: ?? [...] MD - 02/24/2023 Limited ----- Pat. Name: JOEY ARROYO Study Date: 02/24/2023 1:38pm Pat. NO: [id number] Referring MD: TORITO MUSTAFA Site: [facility] Central Office Maintainer: Elissa Clarke RDMS : 1990 Age: 32 [...] was reactive and reassuring. Lys[facility] Beck [facility] documented in this encounter Visit Diagnoses Diagnosis affected by growth restriction documented in this encounter Care Teams Roving Teller Relationship Specialty Start Date End Date No Ref-Primary, Physician PCP - General 12/25/22 Tessa Elliott MD [address] [address] Assigned OBGYN Provider 01/23/23 documented as of this encounter
--- OUTSIDE RECORDS SUMMARY | 2023-04-25 18:27 | XMS_ITS | Encounter Summary ---
Author Name Unknown Organization [place] Address [address] [facility] [place] [address] Care Team Providers Care Sandblast Or Shotblast Equipment Tender Name Role Phone No Ref-Primary, Physician Primary Care Provider Tessa Elliott MD Unavailable [phone] Reason for Referral * Diagnostic Imaging Ultrasound (Routine) - Pending Review Specialty Diagnoses / Procedures Referred By Contac t Referred To Contact Radiology. Diagnoses affected by growth restriction Procedures [facility] US Comprehensive Single F/U Juan Alberto Bañuelos MD [address] [place] [address] Referral ID Status Reason Start Date Expiration Date V isits Requested Visits Authorized [id number] Pending Review 01/27/2023 01/27/2024 1 1 RAILS DEVELOPER Reason for Visit * Diagnostic Imaging Ultrasound (Routine) - Pending Review Specialty Diagnoses / Procedures Referred By Contac t Referred To Contact Radiology. Diagnoses affected by growth restriction Procedures [facility] US Comprehensive Single F/U Juan Alberto Bañuelos MD [address] [place] [address] Referral ID Status Reason Start Date Expiration Date V isits Requested Visits Authorized [id number] Pending Review 01/27/2023 01/27/2024 1 1 Encounter Details Date Type Department Care Team (Latest Contact Info) Description 02/17/2023 10:13 AM RUBY RAILS DEVELOPER - 02/17/2023 11:59 PM RUBY RAILS DEVELOPER Hospital Encounter [facility] [place] [address] [facility] [address] [place] [address] Juan Alberto Bañuelos MD [address] [place] [address] Lyssa Beck MD [address] [place] [address] affected by growth restriction Discharge [...] Procedure Name Priority Date/Time Associated Diagnosis Comments [facility] COMPREHENSIVE SINGLE F/U Routine 02/17/2023 11:17 AM RUBY RAILS DEVELOPER affected by growth restriction documented in this encounter Results * [facility] Comprehensive Single F/U (02/17/2023 11:17 AM RUBY RAILS DEVELOPER) Anatomical Region Laterality Modality Ultrasound 02/17/2023 10:1 3 AM RUBY RAILS DEVELOPER Impressions 02/17/2023 2:30 PM RUBY RAILS DEVELOPER IMPRESSION ----- 1) Kebede intrauterine at 29w [...] within normal limits. Narrative 02/17/2023 2:30 PM RUBY RAILS DEVELOPER ?Comp Follow Up ----- Pat. Name: JOEY ARROYO ? Study Date: ??02/17/2023 10:13am Pat. NO: ??[id number] ?Referring ??MD: TORITO MUSTAFA Site: [facility] ? Paint Pourer: Jhony Ross RDMS : ??1990 ?Age: ?? [...] 2 lb 7 ?oz EFW by ?Hadlock ([id number]) Head / Face / Neck Biometry: Running Instructor ? 5.9 ? mm CM ?5.1 ? mm ANATOMY ----- The following structures appear normal: Head / Neck ? Cranium. Head size. Head shape. Lateral ventricles. Midline falx. Cavum septi pellucidi. Cerebellum. Cisterna magna. Thalami. Face ? Lips. Profile. Nose. Heart / Thorax ?4-chamber view. RVOT view. LVOT view. 6-rpxhvk-umibyjr view. ? Diaphragm. Abdomen ? Stomach. Kidneys. [...] the patient (reviewing medical records/tests), in direct pxpx-ft-pdkk contact with the patient during her visit with the majority spent counseling and discussing the plan of care and documenting the visit in the electronic medical record. Please see note for details. Procedure Note Lyssa Beck MD - 02/17/2023 Comp Follow Up ----- Pat. Name: JOEY ARROYO Study Date: 02/17/2023 10:13am Pat. NO: [id number] Referring MD: TORITO MUSTAFA Site: [facility] Paint Pourer: Jhony Ross RDMS : 1990 Age: 32 [...] 2 lb 7 oz EFW by Hadlock ([id number]) Head / Face / Neck Biometry: Running Instructor 5.9 mm CM 5.1 mm ANATOMY ----- The following structures appear normal: Head / Neck Cranium. Head size. Head shape.Lateral ventricles. Midline falx. Cavum septi pellucidi. Cerebellum.Cisterna magna. Thalami. Face Lips. Profile. Nose. Heart / Thorax 4-chamber view. RVOT view. LVOT view.9-jkewec-korszzw view. Diaphragm. Abdomen Stomach. Kidneys. Bladder. Spine Cervical spine. Thoracic spine.Lumbar spine. Sacral spine. Gender: female. DOPPLER ----- Umbilical Artery: normal. Sampling site: [facility] PI 1.0157% Jesus HR 158 bpm MATERNAL [...] see the patient (reviewing medical records/tests), in iawobdsthm-vj-uipq contact with the patient during her visit [...] within normal limits. Juan Alberto Bañuelos MD [facility] US ORDERABL ES documented in this encounter Visit Diagnoses Diagnosis affected by growth restriction documented in this encounter Care Teams Sandblast Or Shotblast Equipment Tender Relationship Specialty Start Date End Date No Ref-Primary, Physician PCP - General 12/25/22 Tessa Elliott MD [address] [place] [address] Assigned OBGYN Provider 01/23/23 documented as of this encounter
--- OUTSIDE RECORDS SUMMARY | 2023-04-25 18:27 | XMS_ITS | Encounter Summary ---
Author Name Unknown Organization [place] Address [address] [facility] [place] [address] Care Team Providers Care Key Entry Operator Name Role Phone No Ref-Primary, Physician Primary Care Provider Odalys Holguin MD Unavailable Reason for Referral * Diagnostic Imaging Ultrasound (Routine) - Pending Review Specialty Diagnoses / Procedures Referred By Contac t Referred To Contact Radiology. Diagnoses affected by growth restriction Procedures [facility] Comprehensive Single F/U Annel Holguin MD [address] [place] [address] Referral ID Status Reason Start Date Expiration Date V isits Requested Visits Authorized [id number] Pending Review 03/10/2023 03/09/2024 1 1 USION TECHNICIAN * Diagnostic Imaging Ultrasound (Routine) - Pending Review Specialty Diagnoses / Procedures Referred By Contac t Referred To Contact Radiology. Diagnoses affected by growth restriction Procedures [facility] OB Limited Single/Multiple Annel Holguin MD [address] [place] [address] Referral ID Status Reason Start Date Expiration Date V isits Requested Visits Authorized [id number] Pending Review 03/10/2023 03/09/2024 1 1 USION TECHNICIAN * Diagnostic Imaging Ultrasound (Routine) - Pending Review Specialty Diagnoses / Procedures Referred By Contac t Referred To Contact Radiology. Diagnoses affected by growth restriction Procedures [facility] OB Limited Single/Multiple Annel Holguin MD [address] [place] [address] Referral ID Status Reason Start Date Expiration Date V isits Requested Visits Authorized [id number] Pending Review 03/10/2023 03/09/2024 1 1 USION TECHNICIAN Reason for Visit * Reason Comments Ultrasound NST/RL2/UAR-FGR * Consultation (Routine: Next available opening) - Pending Review Specialty Diagnoses / Procedures Referred By Contac t Referred To Contact Diagnoses affected by growth restriction Juan Alberto Bañuelos MD [address] [place] [address] Referral ID Status Reason Start Date Expiration Date V isits Requested Visits Authorized [id number] Pending Review 01/05/2023 01/05/2024 14 14 Encounter Details Date Type Department Care Team (Late st Contact Info) Description 03/10/2023 11:15 AM EXTRUSION TECHNICIAN Office Visit [facility] [place] [address] [facility] [facility] [address] [place] [address] Juan Alberto Bañuelos MD [address] [place] [address] Annel Holguin MD [address] [place] [address] affected by growth restriction Social [...] Sign Reading Time Taken Comments Blood Pressure 82/52 03/10/2023 11:54 AM EXTRUSION TECHNICIAN Pulse 61 03/10/2023 11:54 AM EXTRUSION TECHNICIAN Temperature - - Respiratory Rate - - Oxygen Saturation 100% 03/10/2023 11:54 AM EXTRUSION TECHNICIAN Inhaled Oxygen Concentration - - Weight - - Height - - Body Mass Index - - documented in this encounter Progress Notes * Annel Holguin MD - 03/10/2023 11:15 AM CST Please see Imaging tab under Chart Review for details of today's visit. Annel Holguin USION TECHNICIAN documented in this encounter Nursing Notes * Agustina Echols RN - 03/10/2023 11:15 AM CST Patient presents to [facility] for NST/RL2/UAR at 32w2d due to FGR. Positive movement. Denies LOF, vaginal bleeding or cramping/contractions. SBAR given to [facility] MD, see their note in Epic. USION TECHNICIAN documented in this encounter Plan of Treatment Not on file documented as of this encounter Results * [facility] US Comprehensive Single F/U (04/01/2023 12:09 PM EXTRUSION TECHNICIAN) Anatomical Region Laterality Modality Ultrasound 04/01/2023 11:3 5 AM EXTRUSION TECHNICIAN Impressions 04/01/2023 1:01 PM EXTRUSION TECHNICIAN IMPRESSION ----- 1) Kebede intrauterine at 35w 3d gestational age. 2) None of the anomalies commonly detected by ultrasound were evident in the anatomic survey described above. 3) Growth parameters and estimated weight were consistent with growth restriction. 4) The amniotic fluid volume appeared normal. 5) The NST is reactive. 6) The umbilical artery Doppler is within normal limits. Narrative 04/01/2023 1:01 PM EXTRUSION TECHNICIAN ?Comp Follow Up ----- Pat. Name: CESAR ARROYO ? Study Date: ??04/01/2023 11:35am Pat. NO: ??[id number] ?Referring ??MD: TORITO MUSTAFA Site: [facility] ? Rehabilitation Aide: Elissa Clarke RDMS : ??1990 ?Age: ?? [...] Biometry: BPD ?78.6 ?mm ? 31w 4d ?Polo VALE ?105.6 ?mm ? 31w 2d ? Nicolaides HC ?292.9 ?mm ?32w 2d ?Hadlock Cerebellum tr ?46.6 ? mm ?-/- ?Nicolaides AC ?293.4 ?mm ?33w 2d ?8% ?Hadlock Femur ?65.1 ? mm ?33w 4d ?Hadlock Humerus ?56.3 ?mm ? 32w 5d ?Aminah Weight Calculation: EFW ? 2,124 ?g ? 6% ? Hadlock EFW (lb,oz) ? 4 lb 11 ? oz EFW by ?Hadlock ([id number]) Head / Face / Neck Biometry: Advertising Manager ? 3.9 ? mm CM ?4.6 ? mm ANATOMY ----- The following structures appear normal: Head / Neck ? Cranium. Head size. Head shape. Lateral ventricles. Midline falx. Cavum septi pellucidi. Cerebellum. Cisterna magna. Thalami. Face ? Lips. Profile. Nose. Heart / Thorax ?4-chamber view. RVOT view. LVOT view. 1-uxqfhz-ruraxqh view. ? Diaphragm. Abdomen ? Stomach. Kidneys. [...] will be scheduled in 3 weeks if Cesar remains undelivered (delivery recommended at [id number]). Return to primary provider for continued care. [...] the patient (reviewing medical records/tests), in direct tyct-pc-mlqh contact with the patient during her visit with the majority spent counseling and discussing the plan of care and documenting the visit in the electronic medical record. Please see note for details. Procedure Note Lyssa Beck MD - 04/01/2023 Comp Follow Up ----- Pat. Name: CESAR ARROYO Study Date: 04/01/2023 11:35am Pat. NO: [id number] Referring MD: TORITO MUSTAFA Site: [facility] Rehabilitation Aide: Elissa Clarke RDMS : 1990 Age: 32 [...] (lb,oz) 4 lb 11 oz EFW by Polo ([id number]) Head / Face / Neck Biometry: Advertising Manager 3.9 mm CM 4.6 mm ANATOMY ----- The following structures appear normal: Head / Neck Cranium. Head size. Head shape.Lateral ventricles. Midline falx. Cavum septi pellucidi. Cerebellum.Cisterna magna. Thalami. Face Lips. Profile. Nose. Heart / Thorax 4-chamber view. RVOT view. LVOT view.8-iwastn-uwdfhsn view. Diaphragm. Abdomen Stomach. Kidneys. Bladder. Spine [...] growth will bescheduled in 3 weeks if Sirinporn remains undelivered (delivery recommended at [id number]). Return to primary provider for continued care. [...] see the patient (reviewing medical records/tests), in xoizwttniu-fj-kdio contact with the patient during her visit [...] is within normal limits. Annel Holguin MD [facility] US ORDERABLE S * Maternal US OB Limited Single/Multiple (03/24/2023 8:56 AM EXTRUSION TECHNICIAN) Anatomical Region Laterality Modality Ultrasound 03/24/2023 8:43 AM EXTRUSION TECHNICIAN Impressions 03/24/2023 8:59 AM EXTRUSION TECHNICIAN IMPRESSION ----- 1) Normal amniotic fluid volume. 2) Normal umbilical artery doppler flow studies. 3) Reactive NST without decelerations. Narrative 03/24/2023 8:59 AM EXTRUSION TECHNICIAN ?Limited ----- Pat. Name: MALLE, SIRINPORN ? Study Date: ??03/24/2023 8:43am Pat. NO: ??[id number] ?Referring ??MD: TORITO MUSTAFA Site: [facility] ? Rehabilitation Aide: Trisha Calle [facility] : ??1990 ?Age: ?? 32 ----- INDICATION [...] ARROYO Study Date: 03/24/2023 8:43am Pat. NO: [id number] Referring MD: TORITO MUSTAFA Site: [facility] Rehabilitation Aide: Trisha Calle RDMS : 1990 Age: 32 [...] Reactive NST without decelerations. Annel Holguin MD [facility] US ORDERABLE S * Maternal US OB Limited Single/Multiple (03/19/2023 3:22 PM EXTRUSION TECHNICIAN) Anatomical Region Laterality Modality Ultrasound 03/19/2023 3:05 PM EXTRUSION TECHNICIAN Impressions 03/19/2023 4:27 PM EXTRUSION TECHNICIAN IMPRESSION ----- 1. Kebede intrauterine at 33w 4d with growth restriction (EFW 5% on 03/10/23) here for surveillance. 2. The amniotic fluid volume appeared normal. 3. The umbilical artery dopplers were within normal limits. 4. The NST was reactive and reassuring. Narrative 03/19/2023 4:27 PM EXTRUSION TECHNICIAN ?Limited ----- Pat. Name: CESAR ARROYO ? Study Date: ??03/19/2023 3:05pm Pat. NO: ??[id number] ?Referring ??: TORITO MUSTAFA Site: [facility] ? Rehabilitation Aide: Jhony Ross RDMS : ??1990 ?Age: ?? [...] MD - 03/19/2023 Limited ----- Pat. Name: CESAR ARROYO Study Date: 03/19/2023 3:05pm Pat. NO: [id number] Referring MD: TORITO MUSTAFA Site: [facility] Rehabilitation Aide: Jhony Ross RDMS : 1990 Age: 32 [...] Umbilical Artery: normal. Sampling site: [facility] PI 1.1591% Jesus HR 134 bpm MATERNAL [...] reactive and reassuring. Annel Holguin MD [facility] US ORDERABLE S documented in this encounter Visit Diagnoses Diagnosis affected by growth restriction affected by growth restriction affected by growth restriction affected by growth restriction documented in this encounter Care Teams Key Entry Operator Relationship Specialty Start Date End Date No Ref-Primary, Physician PCP - General 12/25/22 Odalys Holguin MD [address] [place] [id number] Assigned OBGYN Provider 03/06/23 documented as of this encounter
--- OUTSIDE RECORDS SUMMARY | 2023-04-25 18:28 | XMS_ITS | Encounter Summary ---
Author Name Unknown Organization [place] Address [address] [place] [address] Care Team Providers Care Botany Professor Name Role Phone No Ref-Primary, Physician Primary Care Provider Reason for Visit * Reason Comments Ultrasound NST/UAR/XAVIER: FGR * Consultation (Routine: Next available opening) - Pending Review Specialty Diagnoses / Procedures Referred By Contac t Referred To Contact Diagnoses affected by growth restriction Juan Alberto Teague MD [address] [place] [address] Referral ID Status Reason Start Date Expiration Date V isits Requested Visits Authorized [id number] Pending Review 01/05/2023 01/05/2024 14 14 Encounter Details Date Type Department Care Team (Late st Contact Info) Description 01/20/2023 9:00 AM CDT Office Visit [facility] [place] [address] [place] [address] Juan Alberto Teague MD [address] [place] [address] affected by growth restriction (Primary [...] Sign Reading Time Taken Comments Blood Pressure 79/50 01/20/2023 10:23 AM CDT Pulse 58 01/20/2023 10:23 AM CDT Temperature - - Respiratory Rate - - Oxygen Saturation 98% 01/20/2023 10:23 AM CDT Inhaled Oxygen Concentration - - Weight - - Height - - Body Mass Index - - documented in this encounter Progress Notes * Juan Alberto Teague MD - 01/20/2023 9:00 AM CDT Please see Imaging tab under Chart Review for details of today's US at the [facility]. Juan Alberto Teague MD Maternal- Medicine documented in this encounter Nursing Notes * Desire Monroy RN - 01/20/2023 9:00 AM CDT NST Performed due to FGR. Dr. teague reviewed efm tracing. See NST/BPP Doc Flowsheet tab. Positive movement. Denies LOF, vaginal bleeding or LOF. Desire Monroy RN documented in this encounter Plan of Treatment Not on file documented as of this encounter Visit Diagnoses Diagnosis affected by growth restriction- Primary documented in this encounter Care Teams Botany Professor Relationship Specialty Start Date End Date No Ref-Primary, Physician PCP - General 12/25/22 documented as of this encounter
--- OUTSIDE RECORDS SUMMARY | 2023-04-25 18:28 | XMS_ITS | Encounter Summary ---
Author Name Unknown Organization [place] Address [address] [facility] [place] [address] Care Team Providers Care [facility] Name Role Phone No Ref-Primary, Physician Primary Care Provider Reason for Referral * Diagnostic Imaging Ultrasound (Routine) - Pending Review Specialty Diagnoses / Procedures Referred By Contac t Referred To Contact Radiology. Diagnoses affected by growth restriction Procedures [facility] OB Limited Single/Multiple Juan Alberto Bañuelos MD [address] [place] [address] Referral ID Status Reason Start Date Expiration Date V isits Requested Visits Authorized [id number] Pending Review 01/05/2023 01/05/2024 1 1 Reason for Visit * Diagnostic Imaging Ultrasound (Routine) - Pending Review Specialty Diagnoses / Procedures Referred By Contac t Referred To Contact Radiology. Diagnoses affected by growth restriction Procedures [facility] US OB Limited Single/Multiple Juan Alberto Bañuelos MD [address] [place] [address] Referral ID Status Reason Start Date Expiration Date V isits Requested Visits Authorized [id number] Pending Review 01/05/2023 01/05/2024 1 1 Encounter Details Date Type Department Care Team (Latest Contact Info) Description 01/13/2023 9:12 AM CDT - 01/13/2023 11:59 PM CDT Hospital Encounter [facility] Maternal Medicine [facility] [address] [place] [address] Juan Alberto Bañuelos MD [address] [place] [address] Tessa Elliott MD [address] [place] [address] affected by growth restriction Discharge [...] Procedure Name Priority Date/Time Associated Diagnosis Comments [facility] OB LIMITED SINGLE/MULTIPLE Routine 01/13/2023 10:05 AM CDT affected by growth restriction documented in this encounter Results * [facility] OB Limited Single/Multiple (01/13/2023 10:05 AM CDT) Anatomical Region Laterality Modality Ultrasound 01/13/2023 9:39 AM CDT Impressions 01/13/2023 11:02 AM CDT IMPRESSION ----- 1. Kebede intrauterine at 24w 2d with growth restriction (EFW 6th% on 01/05) here for surveillance. 2. The amniotic fluid volume appeared normal. 3. The umbilical artery dopplers were within normal limits. 4. The NST was reactive and reassuring. Narrative 01/13/2023 11:02 AM CDT ?Limited ----- Pat. Name: JOEY ARROYO ? Study Date: ??01/13/2023 9:39am Pat. NO: ??[id number] ?Referring ??MD: TORITO MUSTAFA Site: [facility] ? Director Of Special Events: Elissa Clarke RDMS : ??1990 ?Age: ?? 32 ----- INDICATION ----- growth restriction (FGR) METHOD ----- Transabdominal ultrasound examination. View: Sufficient ----- Kebede . Number of fetuses: 1 DATING ----- ? Date ?Details ?Gest. age ?KENDRICK LMP ?07/24/2022 ?Cycle: regular cycle ?24 w + 5 d ? 04/30/2023 Prior assessment ? 10/07/2022 ?GA: 10 w + 2 d ? 24 w + 2 d ? 05/03/2023 Assigned dating ?Dating performed on 01/13/2023, based on the prior assessment (on 10/07/2022) ? 24 w + 2 d ? 05/03/2023 GENERAL EVALUATION ----- Cardiac activity present. FHR 146 bpm. movements visualized. Presentation cephalic. Placenta Posterior. Umbilical cord previously studied. Amniotic fluid Amount of AF: normal. MVP 6.7 cm. DOPPLER ----- Umbilical Artery: normal PI ?05.03 ?80% ? Jesus HR ?146 ? bpm MATERNAL STRUCTURES ----- Right Ovary ?Not examined Left Ovary ?Not examined NON STRESS TEST ----- NST interpretation: reactive. Test duration 30 min. Baseline FHR 145 bpm. Baseline variability: moderate. Accelerations: present. Decelerations: present, variable deceleration x 1 . Uterine activity: absent RECOMMENDATION ----- Thank-you for referring your patient for surveillance in the setting of growth restriction. I discussed the findings on today's ultrasound with the patient. Continue weekly surveillance/UA Dopplers and growth evaluation every 3 weeks. She also met with our genetic counseling team today and opted to have cell free DNA drawn. The results of this screen will be forwarded to you as soon as they are available. Return to primary provider for continued care. If you have questions regarding today's evaluation or if we can be of further service, please contact the Maternal- Medicine Center. anomalies may be present but not detected Procedure Note Tessa Elliott MD - 01/13/2023 Limited ----- Pat. Name: JOEY ARROYO Study Date: 01/13/2023 9:39am Pat. NO: [id number] Referring MD: TORITO MUSTAFA Site: [facility] Director Of Special Events: Elissa Clarke RDMS : 1990 Age: 32 ----- INDICATION ----- growth restriction (FGR) METHOD ----- Transabdominal ultrasound examination. View: Sufficient ----- Kebede . Number of fetuses: 1 DATING ----- DateDetailsGest. age KENDRICK LMP 07/24/2022ycle: regular cycle24 w + 5 d 04/30/2023 Prior assessment 10/07/2022 GA: 10 w+ 2 d24 w + 2 d 05/03/2023 Assigned dating Dating performed on 01/13/2023, based onthe prior assessment (on 10/07/2022) 24 w + 2 05/03/2023 GENERAL EVALUATION ----- Cardiac activity present. FHR 146 bpm. movements visualized. Presentation cephalic. Placenta Posterior. Umbilical cord previously studied. Amniotic fluid Amount of AF: normal. MVP 6.7 cm. DOPPLER ----- Umbilical Artery: normal PI 1.2980% Jesus HR 146 bpm MATERNAL STRUCTURES ----- Right Ovary Not examined Left Ovary Not examined NON STRESS TEST ----- NST interpretation: reactive. Test duration 30 min. Baseline FHR 145 bpm.Baseline variability: moderate. Accelerations: present. Decelerations:present, variable deceleration x 1 . Uterine activity: absent RECOMMENDATION ----- Thank-you for referring your patient for surveillance in thesetting of growth restriction. I discussed the findings on today'sultrasound with the patient. Continue weekly surveillance/UA Dopplers and growth evaluationevery 3 weeks. She also met with our genetic counseling team today andopted to have cell free DNA drawn. The results of this screen will be forwarded to you assoon as they are available. Return to primary provider for continued care. If you have questions regarding today's evaluation or if we can be offurther service, please contact the Maternal- Medicine Center. anomalies may be present but not detected IMPRESSION ----- 1. Kebede intrauterine at 24w 2d with growthrestriction (EFW 6th% on 01/05) here for surveillance. 2. The amniotic fluid volume appeared normal. 3. The umbilical artery dopplers were within normal limits. 4. The NST was reactive and reassuring. Juan Alberto Bañuelos MD [facility] ORDERABL documented in this encounter Visit Diagnoses Diagnosis affected by growth restriction documented in this encounter Care Teams [facility] Relationship Specialty Start Date End Date No Ref-Primary, Physician PCP - General 12/25/22 documented as of this encounter
--- OUTSIDE RECORDS SUMMARY | 2023-04-25 18:28 | XMS_ITS | Encounter Summary ---
Author Name Unknown Organization [place] Address [address] [place] [address] Care Team Providers Care Rehabilitation Counselor Name Role Phone No Ref-Primary, Physician Primary Care Provider Reason for Visit * Reason Onset Date Comments Results 01/18/2023 Low-risk (XX) NI PT Encounter Details Date Type Department Care Team (Late st Contact Info) Description 01/18/[address] [facility] [place] [address] [place] [address] Brandi Carrington GC [address] [place] [address] Results (Low-risk (XX) NIPT) Social History Tobacco Use Types Packs/Day Years [...] AM CDT documented as of this encounter Miscellaneous Notes * Telephone Encounter - Brandi Carrington GC - 01/18/2023 9:35 AM CDT January 18, 2023 I spoke with Cody regarding Cesar's NIPT results. Results indicate NO ANEUPLOIDY DETECTED for chromosomes 21, 18, 13, or the sex chromosomes (XX). Results were also negative for 22q11.2 deletion syndrome.; This puts her current at low risk for Down syndrome, trisomy 18, trisomy 13 and sex chromosome abnormalities. This test is reported to have the following sensitivities: Down syndrome- >99.9%, trisomy 18- >99.9%, and trisomy 13- >99.9%. Although these results are reassuring, this does not replace a standard chromosome analysis from a chorionic villus sampling or amniocentesis. MSAFP is the appropriate second trimester screening test for open neural tube defects; the maternalquad screen is not recommended. Her results are available in her [facility] chart for her primary OB to review. Brandi Carrington MS, [facility] Licensed Genetic Counselor [facility] Pager: [phone] Office: [phone] documented in this encounter Plan of Treatment Not on file documented as of this encounter Visit Diagnoses Not on filedocumented in this encounter Care Teams Rehabilitation Counselor Relationship Specialty Start Date End Date No Ref-Primary, Physician PCP - General 12/25/22 documented as of this encounter
--- OUTSIDE RECORDS SUMMARY | 2023-04-25 18:28 | XMS_ITS | Encounter Summary ---
Author Name Unknown Organization [place] Address [address] [facility] [address] [place] [address] Care Team Providers Care Employee Development Director Name Role Phone No Ref-Primary, Physician Primary Care Provider Encounter Details Date Type Department Care Team (Latest Contact Info) Description 01/05/2023 Travel Social History Tobacco Use Types Packs/Day [...] on filedocumented in this encounter Care Teams Employee Development Director Relationship Specialty Start Date End Date No Ref-Primary, Physician PCP - General 12/25/22 documented as of this encounter
--- OUTSIDE RECORDS SUMMARY | 2023-04-25 18:28 | XMS_ITS | Encounter Summary ---
Author Name Unknown Organization [place] Address [address] [facility] [place] [address] Care Team Providers Care Library Helper Name Role Phone No Ref-Primary, Physician Primary Care Provider Reason for Visit * Reason Comments Ultrasound NST/limited-FGR Genetic Counseling GC-FGR * Consultation (Routine: Next available opening) - Pending Review Specialty Diagnoses / Procedures Referred By Contac t Referred To Contact Diagnoses affected by growth restriction Juan Alberto Bañuelos MD [address] [place] [address] Referral ID Status Reason Start Date Expiration Date V isits Requested Visits Authorized [id number] Pending Review 01/05/2023 01/05/2024 14 14 Encounter Details Date Type Department Care Team (Late st Contact Info) Description 01/13/2023 9:00 AM CDT Office Visit [facility] [place] [address] [place] [address] Juan Alberto Bañuelos MD [address] [place] [address] Tessa Elliott MD [address] [place] [address] affected by growth restriction (Primary [...] AM CDT documented as of this encounter Progress Notes * Tessa Elliott MD - 01/13/2023 9:00 AM CDT The patient was seen for an ultrasound in the Maternal- Medicine Center at the [facility] today. For a detailed report of the ultrasound examination, please see the ultrasound report which can be found under the imaging tab. If you have questions regarding today's evaluation or if we can be of further service, please contact the Maternal- Medicine Center. Tessa Elliott MD Medical Auditor, BUYER AGENT Maternal- Medicine [phone] (Pager) documented in this encounter Nursing Notes * Agustina Echols RN - 01/13/2023 9:00 AM CDT Patient presents to [facility] for NST/limited/GC at 24w2d due to FGR. Positive movement. Denies LOF, vaginal bleeding or cramping/contractions. SBAR given to [facility] , see their note in Epic. documented in this encounter Plan of Treatment Not on file documented as of this encounter Visit Diagnoses Diagnosis affected by growth restriction- Primary documented in this encounter Care Teams Library Helper Relationship Specialty Start Date End Date No Ref-Primary, Physician PCP - General 12/25/22 documented as of this encounter
--- OUTSIDE RECORDS SUMMARY | 2023-04-25 18:28 | XMS_ITS | Encounter Summary ---
Author Name Unknown Organization [place] Address [address] [facility] [place] [address] Care Team Providers Care Oil House Attendant Name Role Phone No Ref-Primary, Physician Primary Care Provider Encounter Details Date Type Department Care Team (Latest Contact Info) Description 01/13/2023 Travel Social History Tobacco Use Types Packs/Day [...] on filedocumented in this encounter Care Teams Oil House Attendant Relationship Specialty Start Date End Date No Ref-Primary, Physician PCP - General 12/25/22 documented as of this encounter
--- OUTSIDE RECORDS SUMMARY | 2023-04-25 18:28 | XMS_ITS | Encounter Summary ---
Author Name Unknown Organization [place] Address [facility] [facility] [place] [address] Care Team Providers Care Music Coordinator Name Role Phone Unavailable Primary Care Provider Unavailabl e Reason for Referral * Diagnostic Imaging Ultrasound (Routine) - Pending Review Specialty Diagnoses / Procedures Referred By Lima ramirez Referred To Contact Radiology. Diagnoses related condition, antepartum Procedures Maternal US Comprehensive Single Virginia Mustafa APRN [facility] [address] [place] [address] Referral ID Status Reason Start Date Expiration Date V isits Requested Visits Authorized [id number] Pending Review 12/11/2022 12/11/2023 1 1 Encounter Details Date Type Department Care Team (Latest Contact Info) Description 12/11/2022 Transcribe Orders [facility] [place] [address] [facility] [address] [place] [address] Virginia Mustafa APRN [facility] [address] [place] [address] related condition, antepartum (Primary Dx) Social History Tobacco Use Types Packs/Day Years Used Date Smoking Tobacco: Never Estimated Date of Delivery Comme nts Yes 05/03/2023 Based on Ultraso und Sex and Gender Information Value Date Recorded Sex Assigned at Not on file Gender Identity Not on file Sexual Orientation Not on file documented as of this encounter Plan of Treatment Not on file documented as of this encounter Results * Maternal US Comprehensive Single (12/14/2022 8:52 AM CDT) Anatomical Region Laterality Modality Ultrasound 12/14/2022 8:13 AM CDT Impressions 12/14/2022 2:13 PM CDT IMPRESSION ----- 1) Kebede intrauterine at 20w 0d gestational age. 2) None of the anomalies commonly detected by ultrasound were evident in the detailed anatomic survey described above. 3) Growth parameters and estimated weight were consistent with an appropriate for gestation age pattern of growth. 4) The amniotic fluid volume appeared normal. 5) The placenta is posterior and low lying. Narrative 12/14/2022 2:13 PM CDT Comprehensive ----- Pat. Name: JOEY ARROYO Study Date: 12/14/2022 8:13am Pat. NO: [id number] Referring ??: VIRGINIA MUSTAFA Site: [facility] Hand: Trisha Calle RDMS : 1990 Age: 32 ----- INDICATION ----- Growth Restriction (FGR) and complete previa on outside ultrasound METHOD ----- Transabdominal ultrasound examination. View: Sufficient ----- Kebede . Number of fetuses: 1 DATING ----- ? Date ?Details ?Gest. age ?KENDRICK LMP ?07/24/2022 ?Cycle: regular cycle ?20 w + 3 d ? 04/30/2023 Prior assessment ? 10/07/2022 ?GA: 10 w + 2 d ? 20 w + 0 d ? 05/03/2023 U/S ? 12/14/2022 ? based upon AC, BPD, Femur, HC ?19 w + 0 d ? 05/10/2023 Assigned dating ?Dating performed on 12/14/2022, based on the prior assessment (on 10/07/2022) ? 20 w + 0 d ? 05/03/2023 GENERAL EVALUATION ----- Cardiac activity present. FHR 148 bpm. movements present. Presentation cephalic. Placenta posterior, low-lying placenta. placental edge measures 8.0 mm from internal os . Umbilical cord 3 vessel cord. Amniotic fluid Amount of AF: normal. MVP 5.7 cm. BIOMETRY ----- Main Biometry: BPD ?41.8 ?mm ? 18w 5d ?Hadlock OFD ?55.5 ?mm ? 18w 3d ?Nicolaides HC ?155.0 ?mm ?18w 3d ?Hadlock Cerebellum tr ?19.3 ? mm ?18w 5d ?Nicolaides AC ?137.7 ?mm ?19w 1d ?20% ?Hadlock Femur ?30.3 ? mm ?19w 3d ?Hadlock Humerus ?28.6 ?mm ? 19w 2d ?[place] Weight Calculation: EFW ? 278 ? g ? 11% ?Hadlock EFW (lb,oz) ? 0 lb 10 ? oz EFW by ?Hadlock ([id number]) Head / Face / Neck Biometry: Rn Recruitment ? 6.2 ? mm CM ?2.6 ? mm Nasal bone ? 5.8 ? mm Nuchal fold ? 4.0 ? mm ANATOMY ----- The following structures appear normal: Head / Neck ? Cranium. Head size. Head shape. Lateral ventricles. Choroid plexus. Midline falx. Cavum septi pellucidi. Cerebellum. Cisterna magna. ? Parenchyma. Thalami. Vermis. ? Neck. Nuchal fold. Face ? Lips. Profile. Nose. Maxilla. Mandible. Orbits. Lens. Heart / Thorax ?4-chamber view. RVOT view. LVOT view. Situs. Aortic arch view. Bicaval view. Ductal arch view. Superior vena cava. Inferior vena cava. 3-vessel ? view. 3-zfhsfd-aannjqa view. Cardiac position. Cardiac size. Cardiac rhythm. ? Right lung. Left lung. Diaphragm. Abdomen ? Abdominal wall. Cord insertion. Stomach. Kidneys. Bladder. Liver. Bowel. Genitals. Spine ?Cervical spine. Thoracic spine. Lumbar spine. Sacral spine. Extremities / Skeleton ?Right arm. Right hand. Left arm. Left hand. Right leg. Right foot. Left leg. Left foot. MATERNAL STRUCTURES ----- Cervix ?Visualized ? Appearance: Appears Closed ? Approach - Transabdominal: Cervical length 43.7 mm Right Ovary ?Visualized Left Ovary ?Visualized RECOMMENDATION ----- We discussed the findings on today's ultrasound with the patient. We first reviewed Joey's EDC as the initial growth parameters on US suggested FGR. The patient states that she has irregular menstrual cycles of 25-35 days. Therefore, recommend EDC of 05/03/23 based on 10w2d US. Given suggested change in EDC, a repeat ultrasound has been scheduled here in 3 weeks to reevaluate growth and anatomy. Return to primary provider for continued care. Thank you for the opportunity to participate in the care of this patient. If you have questions regarding today's evaluation or if we can be of further service, please contact the Maternal- Medicine Center. anomalies may be present but not detected I spent a total of 15 minutes on the date of this encounter including preparing to see the patient (reviewing medical records/tests), in direct [id number] contact with the patient during her visit with the majority spent counseling and discussing the plan of care and documenting the visit in the electronic medical record. Please see note for details. Procedure Note Lyssa Beck MD - 12/14/2022 Comprehensive ----- Kylie. Name:Geovanna ARROYO Date:12/14/2022 8:13am Pat. NO: [id number] MD:VIRGINIA MUSTAFA [facility]Trisha [facility] RDMS :1990Age:32 ----- INDICATION ----- Growth Restriction (FGR) and complete previa on outside ultrasound METHOD ----- Transabdominal ultrasound examination. View: Sufficient ----- Kebede . Number of fetuses: 1 DATING ----- DateDetailsGest. age KENDRICK LMP 07/24/2022ycle: regular cycle20 w + 3 d 04/30/2023 Prior assessment 10/07/2022 GA: 10 w+ 2 d20 w + 0 d 05/03/2023 U/S 3based upon AC, BPD, Femur, HC19 w + 0 d 05/10/2023 Assigned dating Dating performed on 12/14/2022, based onthe prior assessment (on 10/07/2022) 20 w + 0 05/03/2023 GENERAL EVALUATION ----- Cardiac activity present. FHR 148 bpm. movements present. Presentation cephalic. Placenta posterior, low-lying placenta. placental edge measures 8.0 mmfrom internal os . Umbilical cord 3 vessel cord. Amniotic fluid Amount of AF: normal. MVP 5.7 cm. BIOMETRY ----- Main Biometry: BPD 41.8 mm18w 5d Hadlock OFD 55.5 mm18w 3d Nicolaides HC 155.0 mm18w 3d Hadlock Cerebellum tr 19.3 mm18w 5d Nicolaides AC 137.7 mm19w 1d 20% Hadlock Femur 30.3 mm19w 3d Hadlock Humerus 28.6 mm19w 2d Aminah Weight Calculation: EFW 278 g11% Hadlock EFW (lb,oz) 0 lb 10 oz EFW by Hadlock ([id number]) Head / Face / Neck Biometry: Rn Recruitment 6.2 mm CM 2.6 mm Nasal bone 5.8 mm Nuchal fold 4.0 mm ANATOMY ----- The following structures appear normal: Head / Neck Cranium. Head size. Head shape.Lateral ventricles. Choroid plexus. Midline falx. Cavum septi pellucidi.Cerebellum. Cisterna magna. Parenchyma. Thalami. Vermis. Neck. Nuchal fold. Face Lips. Profile. Nose. Maxilla.Mandible. Orbits. Lens. Heart / Thorax 4-chamber view. RVOT view. LVOT view.Situs. Aortic arch view. Bicaval view. Ductal arch view. Superior venacava. Inferior vena cava. 3-vessel view. 1-ztntxq-fwdqlsm view.Cardiac position. Cardiac size. Cardiac rhythm. Right lung. Left lung.Diaphragm. Abdomen Abdominal wall. Cord insertion.Stomach. Kidneys. Bladder. Liver. Bowel. Genitals. Spine Cervical spine. Thoracic spine.Lumbar spine. Sacral spine. Extremities / Skeleton Right arm. Right hand. Left arm. Lef[place]and. Right leg. Right foot. Left leg. Left foot. MATERNAL STRUCTURES ----- Cervix Visualized Appearance: Appears Closed Approach - Transabdominal:Cervical length 43.7 mm Right Ovary Visualized Left Ovary Visualized RECOMMENDATION ----- We discussed the findings on today's ultrasound with the patient. We first reviewed Joey's EDC as the initial growth parameters on USsuggested FGR. The patient states that she has irregular menstrual cyclesof 25-35 days. Therefore, recommend EDC of 05/03/23 based on 10w2d US. Given suggestedchange in EDC, a repeat ultrasound has been scheduled here in 3 weeks toreevaluate growth and anatomy. Return to primary provider for continued care. Thank you for the opportunity to participate in the care of this patient.If you have questions regarding today's evaluation or if we can be offurther service, please contact the Maternal- Medicine Center. anomalies may be present but not detected I spent a total of 15 minutes on the date of this encounter includingpreparing to see the patient (reviewing medical records/tests), in [id number]-[id number] contact with the patient during her visit with the majority spent counseling and discussingthe plan of care and documenting the visit in the electronic medicalrecord. Please see note for details. IMPRESSION ----- 1) Kebede intrauterine at 20w 0d gestational age. 2) None of the anomalies commonly detected by ultrasound were evident inthe detailed anatomic survey described above. 3) Growth parameters and estimated weight were consistent with anappropriate for gestation age pattern of growth. 4) The amniotic fluid volume appeared normal. 5) The placenta is posterior and low lying. [place] Mustafa APRN, CNM IMJamie CROOKS documented in this encounter Visit Diagnoses Diagnosis related condition, antepartum- Primary related condition, antepartum documented in this encounter
--- OUTSIDE RECORDS SUMMARY | 2023-04-25 18:28 | XMS_ITS | Encounter Summary ---
Author Name Unknown Organization [place] Address [address] [place] [address] Care Team Providers Care Public Health Nurse Name Role Phone No Ref-Primary, Physician Primary Care Provider Reason for Visit * Reason Comments Genetic Counseling Abnormal ultra sound * Consultation (Routine: Next available opening) - Pending Review Specialty Diagnoses / Procedures Referred By Contac t Referred To Contact Diagnoses affected by growth restriction Juan Alberto Bañuelos MD [address] [place] [address] Referral ID Status Reason Start Date Expiration Date V isits Requested Visits Authorized [id number] Pending Review 01/05/2023 01/05/2024 1 1 Encounter Details Date Type Department Care Team (Late st Contact Info) Description 01/13/2023 10:15 AM CDT Office Visit [facility] [place] [address] [place] [address] Juan Alberto Bañuelos MD [address] [place] [address] Tessa Elliott MD [address] [place] [address] Brandi Carrington GC [address] [place] [address] Abnormal ultrasound (Primary Dx); affected by growth restriction; Encounter for screening of mother; Encounter for procreative genetic counseling and testing Social History Tobacco Use Types Packs/Day Years [...] as of this encounter Progress Notes * Brandi Carrington, - 01/13/2023 10:15 AM CDT [facility] Genetic Counseling Consult Patient: Cesar Hardy Date of : 1990 Date of Service: 01/13/23 Cesar was seen at the [facility] for genetic consultation. The indication for genetic counseling is abnormal ultrasound. The patient was accompanied to this visit by their partner, Cody, and the couple's son. The session was conducted in Jamaican. IMPRESSION/ PLAN 1. Cesar has not had genetic screening in this but elected to have screening today. She previously had a full genetic counseling session with al on 12-14-2022 for possible growth restriction. At the time, she declined non- invasive testing, and elected to wait to assess growth on the next ultrasound. Today, she desired to move forward with non-invasive testing. growth restriction is present. See documentation from Dr. Elliott. 2. During today's [facility] visit, Cesar had a blood draw for expanded non- invasive testing (also called NIPT, NIPS, or cell-free DNA) through [facility]. The expanded NIPT screens for trisomy 21, 18, and 13 and 22q11.2 deletion syndrome. The patient opted to screen for sex chromosome aneuploidies, including reported sex. In accordance with current guidelines, other microdeletion syndromes and rare autosomal trisomies were not included, but reflex to include these conditions remains available with expanded NIPT if there is an indication later in the . Results are expected in 7-14 days. The patient requested that I call Cody, her partner, with results and if they do not answer they requested a detailed message with results on their voicemail, including the predicted sex information. A consent to communicate is in Aprimohart. Patient was informed that results, including sex, will be available in [employer]el [id number]-[id number]. They already know sex of baby from ultrasound. 3. Since the patient chose aneuploidy screening via NIPT, quad screen is NOT recommended in the second trimester. If the patient desires screening for open neural tube defects, maternal serum AFP only is recommended, ideally between 16- 18 weeks gestation. 4. Cesar had a level II comprehensive anatomy ultrasound today. Please see the ultrasound report for further details. 5. Further recommendation include a follow-up ultrasound with MFM. The upcoming ultrasound has beenscheduled for 01/20/2023, 01/27/2023, and 02/03/2023. RISK ASSESSMENT FOR CHROMOSOME CONDITIONS We explained that the risk for chromosome abnormalities increases with maternal age. We discussed specific features of common chromosome abnormalities, including Down syndrome, trisomy 13, trisomy 18, and sex chromosome trisomies. At age 32 at midtrimester, the risk to have a baby with Down syndrome is 1 in 342. At age 32 at midtrimester, the risk to have a baby with any chromosome abnormality is 1 in 172. Cesar has not had genetic screening in this but elected to have screening today. GENETIC TESTING OPTIONS Genetic testing during a includes screening and diagnostic procedures. Screening tests are non-invasive which means no risk to the and includes ultrasounds and blood work. The benefits and limitations of screening were reviewed. Screening tests provide a risk assessment (chance) specific to the for certain chromosome abnormalities but cannot definitively diagnose or exclude a chromosome abnormality. Follow-up genetic counseling and consideration of diagnostic testing is recommended with any abnormal screening result. Diagnostic testing during a is more certain and can test for more conditions. However, the tests do have a risk of miscarriage that requires careful consideration. These tests can detect chromosome ab normalities with greater than 99% certainty. Results can be compromised by maternal cell contamination or mosaicism and are limited by the resolution of current genetic testing technology. There is no screening or diagnostic test that detects all forms of defects or intellectual disability. We discussed the following screening options: Non-invasive testing (NIPT) Also called cell-free DNA screening because it detects chromosomes from the placenta in the person's blood Can be done any time after 10 weeks gestation Standard recommendation for NIPT screens for trisomy 21, trisomy 18, trisomy 13, with the option ofadding sex chromosome aneuploidies, without or without predicted sex Cannot screen for open neural tube defects, maternal serum AFP after 15 weeks is recommended New NIPT options include screening for other trisomies, microdeletion syndromes, and in some cases blood antigens. Guidelines do not recommend these conditions are included in standard screening. These options have limitations and should be discussed with a genetic counselor. However, current (2022) ACMG guidelines do recommend that screening for one microdeletion syndrome,called 22q11.2 deletion syndrome be offered to all patients. 22q11.2 deletion syndrome hasan estimated prevalence of 1 in 990 to 1 in 2148 (0.05-0.1%). Risk is not thought to increase with maternal age. Clinical features are variable but include congenital heart defects, cleft palate, developmental delays, immune system deficiencies, and hearing loss. Approximately 90% of cases are de aziza (a sporadic new change in a ). Cell-free DNA screening for 22q11.2 deletion syndrome isavailable (Expanded NIPS through [employer]). We discussed the limitations of cell-free DNA screening in detecting microdeletions and the possiblity of false positives and false negatives. Expanded NIPS also allows for reflex to include other microdeletion conditions and rare autosomal trisomies if an indication would arise later in the . The patient opted into 22q11.2 deletion syndrome screening as part of the expanded NIPT option. We discussed the following diagnostic options: Amniocentesis Invasive diagnostic procedure done after 15 weeks gestation The procedure collects a small sample of amniotic fluid for the purpose of chromosomal testing and/or other genetic testing Diagnostic result; more than 99% sensitivity for chromosome abnormalities Testing for AFP in the amniotic fluid can test for open neural tube defects It was a [facility]. Pewj-mp-myzw time of the meeting was 15 minutes. Full genetic counseling session dictation can be found in note from 12-14-2022. Brandi Carrington GC, MS, C Board Certified and [place] Licensed Genetic Counselor [facility] Office: [phone] [facility]: [phone] [facility] documented in this encounter Plan of Treatment Not on file documented as of this encounter Results * [facility] Non-Invasive Screening (01/13/2023 10:36 AM CDT) See Scanned Result [facility] NON-INVASIVE SCREENING-Sc anned 01/18/2023 10:20 AM CDT [facility] Blood STRUCTURE OF LEFT UPPER LIMB / Unknown Venipuncture / Unknown 01/13/2023 10:36 AM CDT 01/13/2023 10:36 AM CDT Brandi Carrington GC LAB - BLOOD ORDERABL ES [facility] [address] [place] [address], [facility] documented in this encounter Visit Diagnoses Diagnosis Abnormal ultrasound- Primary Abnormal findings on screening affected by growth restriction Encounter for screening of mother Unspecified screening Encounter for procreative genetic counseling and testing documented in this encounter Care Teams Public Health Nurse Relationship Specialty Start Date End Date No Ref-Primary, Physician PCP - General 12/25/22 documented as of this encounter
--- OUTSIDE RECORDS SUMMARY | 2023-04-25 18:28 | XMS_ITS | Encounter Summary ---
Author Name Unknown Organization [place] Address [address] [facility] [place] [address] Care Team Providers Care Dental Surgery Doctor Name Role Phone Unavailable Primary Care Provider Unavailabl e Reason for Referral * Diagnostic Imaging Ultrasound (Routine) - Pending Review Specialty Diagnoses / Procedures Referred By Lima ramirez Referred To Contact Radiology. Diagnoses Encounter for ultrasound to check growth Procedures [facility] US Comprehensive Single F/U Lyssa Beck MD [address] [facility] [address] [place] [address] Referral ID Status Reason Start Date Expiration Date V isits Requested Visits Authorized [id number] Pending Review 12/14/2022 12/14/2023 1 1 * Consultation (Routine: Next available opening) - Pending Review Specialty Diagnoses / Procedures Referred By Lima ramirez Referred To Contact Diagnoses Abnormal ultrasound Lyssa Beck MD [address] [place] [address] Referral ID Status Reason Start Date Expiration Date V isits Requested Visits Authorized [id number] Pending Review 12/14/2022 12/14/2023 1 1 Reason for Visit * Reason Comments Ultrasound L2-complete previa, FGR Encounter Details Date Type Department Care Team (Late st Contact Info) Description 12/14/2022 8:30 AM CDT Office Visit [facility]aternal [facility] [address] [place] [phone] Virginia Mustafa APRN [facility] [address] [place] [address] Lyssa Beck MD [address] [place], [place] [id number] Maternal care for other known or suspected poor growth, second trimester, not applicable or unspecified (Primary Dx) Social History Tobacco Use Types [...] suspected to have Coronavirus/COVID-19? No / Unsure 12/14/2022 8:06 AM CDT documented as of this encounter Progress Notes * Lyssa Beck MD - 12/14/2022 8:30 AM CDT Please see Imaging tab under Chart Review for details of today's visit. Lyssa Beck documented in this encounter Plan of Treatment Scheduled Referrals Name Type Priority Associated Diagnoses Orde r Schedule [facility] Genetic Counseling Referral Routine: Next available opening Maternal care for other known or suspected poor growth, second trimester, not applicable or unspecified Expected: 12/14/2022 (Approximate), Expires: 12/15/2023 documented as of this encounter Results * [facility] US Comprehensive Single F/U (01/05/2023 10:09 AM CDT) Anatomical Region Laterality Modality Ultrasound 01/05/2023 9:38 AM CDT Impressions 01/05/2023 10:37 AM CDT IMPRESSION ----- 1) Growth parameters and estimated weight were consistent with intrauterine growth restriction. 2) anatomy appeared normal for gestational age. 3) Normal amniotic fluid volume. 4) Normal umbilical artery doppler flow studies. 5) The placenta is no longer low lying. Narrative 01/05/2023 10:37 AM CDT Comp Follow Up ----- Pat. Name: JOEY ARROYO Study Date: 01/05/2023 9:38am Pat. NO: [id number] Referring ??: VIRGINIA MUSTAFA Site: [employer] Operator: Jhony Ross RDMS : 1990 Age: 32 ----- INDICATION ----- Low lying placenta. Reevaluate growth. METHOD ----- Transabdominal ultrasound examination. View: Sufficient ----- Kebede . Number of fetuses: 1 DATING ----- ? Date ?Details ?Gest. age ?KENDRICK LMP ?07/24/2022 ?Cycle: regular cycle ?23 w + 4 d ? 04/30/2023 Prior assessment ? 10/07/2022 ?GA: 10 w + 2 d ? 23 w + 1 d ? 05/03/2023 U/S ? 01/05/2023 ? based upon AC, BPD, Femur, HC ?21 w + 5 d ? 05/13/2023 Assigned dating ?Dating performed on 12/14/2022, based on the prior assessment (on 10/07/2022) ? 23 w + 1 d ? 05/03/2023 GENERAL EVALUATION ----- Cardiac activity present. FHR 149 bpm. movements present. Presentation cephalic. Placenta Posterior, No Previa, > 2 cm from internal os. Umbilical cord 3 vessel cord. Amniotic fluid Amount of AF: normal. MVP 6.2 cm. BIOMETRY ----- Main Biometry: BPD ?50.3 ?mm ? 21w 2d ?Hadlock OFD ?68.9 ?mm ? 21w 3d ?Nicolaides HC ?191.3 ?mm ?21w 3d ?Hadlock Cerebellum tr ?23.6 ? mm ?21w 6d ?Nicolaides AC ?172.0 ?mm ?22w 1d ?15% ?Hadlock Femur ?37.3 ? mm ?21w 6d ?Hadlock Weight Calculation: EFW ? 463 ? g ? 6% ?Hadlock EFW (lb,oz) ? 1 lb 0 ?oz EFW by ?Hadlock ([id number]) Head / Face / Neck Biometry: Senior Auditor ? 5.6 ? mm CM ?3.8 ? mm ANATOMY ----- The following structures appear normal: Head / Neck ? Cranium. Head size. Head shape. Lateral ventricles. Midline falx. Cavum septi pellucidi. Cerebellum. Cisterna magna. Thalami. Face ? Lips. Profile. Nose. Heart / Thorax ?4-chamber view. RVOT view. LVOT view. 7-ltozzs-smytbck view. ? Diaphragm. Abdomen ? Stomach. Kidneys. Bladder. Spine ?Cervical spine. Thoracic spine. Lumbar spine. Sacral spine. DOPPLER ----- Umbilical Artery: normal. Sampling site: midcord PI ?1.17 ?55% ?Jesus HR ?154 ? bpm MATERNAL STRUCTURES ----- Cervix ?Normal ? Appearance: Appears Closed ? Approach - Transabdominal: Cervical length 33.6 mm Right Ovary ?Not examined Left Ovary ?Not examined RECOMMENDATION ----- We discussed the findings on today's ultrasound with the patient. The findings on today's ultrasound are consistent with growth restriction (FGR). We reviewed that we consider a to be affected by FGR when the overall EFW is <10th% or if the abdominal circumference (AC) is < 10th% as they have been found to be equally predictive of SGA. We discussed the potential etiologies of FGR including constitutional, infectious etiologies (specifically CMV), genetic and structural abnormalities as well as placental abnormalities. She had for genetic screening at her last visit at [facility] and declined aneuploidy screening. She is otherwise healthy and has no significant medical problems. There is no family history of congential anomalies or genetic syndromes. She denies experiencing any viral symptoms this . We reviewed the possible/recommended work up for FGR. We also reviewed the availability of cell free DNA again and the patient is undecided. CMV serologies are not recommended in the absence of risk factors/ultrasound findings but CMV PCR could be sent if amniocentesis is pursued. Additionally, if a patient delivers at <34 weeks for placental insufficiency, including FGR, testing for antiphospholipid antibody syndrome is recommended with beta 2 glycoprotein IgG & IgM, cardiolipin antibody IgG & IgM and lupus anticoagulant. Lastly, we reviewed that regardless of the etiology of FGR, we recommend additional monitoring due to the increased risk for stillbirth and that the ultimate goal of management rests on balancing the risk of stillbirth with the risks of prematurity. The recommended surveillance and management of pregnancies complicated by FGR includes serial assessment of growth (every 3 weeks) in addition to weekly UA Dopplers and surveillance. Timing of delivery will depend on Doppler findings, amniotic fluid, monitoring, and interval growth; we will make specific recommendations as the progresses. We reviewed kick counts and calling guidelines. The patient will begin weekly FGR surveillance (UAR/NST/MARKUS) next weeks and we will reassess growth in 3 weeks. The patient was seen for an outpatient consultation beyond the performance and interpretation of the ultrasound. The total time spent in all patient care activities on the day of this visit was 15 minutes. Procedure Note Juan Alberto Bañuelos MD - 01/05/2023 Comp Follow Up ----- Pat. Name:Geovanna ARROYO Date:01/05/2023 9:38am Pat. NO: [id number] :VIRGINIA MUSTAFA [facility] RDMS :1990Age:32 ----- INDICATION ----- Low lying placenta. Reevaluate growth. METHOD ----- Transabdominal ultrasound examination. View: Sufficient ----- Kebede . Number of fetuses: 1 DATING ----- DateDetailsGest. age KENDRICK LMP 07/24/2022ycle: regular cycle23 w + 4 d 04/30/2023 Prior assessment 10/07/2022 GA: 10 w+ 2 d23 w + 1 d 05/03/2023 U/S 01/05/2023ased upon AC, BPD, Femur, HC21 w + 5 d 05/13/2023 Assigned dating Dating performed on 12/14/2022, based onthe prior assessment (on 10/07/2022) 23 w + 1 05/03/2023 GENERAL EVALUATION ----- Cardiac activity present. FHR 149 bpm. movements present. Presentation cephalic. Placenta Posterior, No Previa, > 2 cm from internal os. Umbilical cord 3 vessel cord. Amniotic fluid Amount of AF: normal. MVP 6.2 cm. BIOMETRY ----- Main Biometry: BPD 50.3 mm21w 2d Hadlock OFD 68.9 mm21w 3d Nicolaides HC 191.3 mm21w 3d Hadlock Cerebellum tr 23.6 mm21w 6d Nicolaides AC 172.0 mm22w 1d 15% Hadlock Femur 37.3 mm21w 6d Hadlock Weight Calculation: EFW 463 g6% Hadlock EFW (lb,oz) 1 lb 0 oz EFW by Hadlock ([id number]) Head / Face / Neck Biometry: Senior Auditor 5.6 mm CM 3.8 mm ANATOMY ----- The following structures appear normal: Head / Neck Cranium. Head size. Head shape.Lateral ventricles. Midline falx. Cavum septi pellucidi. Cerebellum.Cisterna magna. Thalami. Face Lips. Profile. Nose. Heart / Thorax 4-chamber view. RVOT view. LVOT view.8-pwngay-diojkvy view. Diaphragm. Abdomen Stomach. Kidneys. Bladder. Spine Cervical spine. Thoracic spine.Lumbar spine. Sacral spine. DOPPLER ----- Umbilical Artery: normal. Sampling site: midcord PI 1.1755% Jesus HR 154 bpm MATERNAL STRUCTURES ----- Cervix Normal Appearance: Appears Closed Approach - Transabdominal:Cervical length 33.6 mm Right Ovary Not examined Left Ovary Not examined RECOMMENDATION ----- We discussed the findings on today's ultrasound with the patient. The findings on today's ultrasound are consistent with growthrestriction (FGR). We reviewed that we consider a to be affectedby FGR when the overall EFW is <10th% or if the abdominal circumference (AC) is < 10th% as theyhave been found to be equally predictive of SGA. We discussed thepotential etiologies of FGR including constitutional, infectious etiologies (specifically CMV), fetalgenetic and structural abnormalities as well as placental abnormalities. She had for genetic screening at her last visit at [facility] and declinedaneuploidy screening. She is otherwise healthy and has no significantmedical problems. There is no family history of congential anomalies or genetic syndromes. She deniesexperiencing any viral symptoms this . We reviewed the possible/recommended work up for FGR. We also reviewed theavailability of cell free DNA again and the patient is undecided. CMVserologies are not recommended in the absence of risk factors/ultrasound findings but CMV PCRcould be sent if amniocentesis is pursued. Additionally, if a patientdelivers at <34 weeks for placental insufficiency, including FGR, testing for antiphospholipidantibody syndrome is recommended with beta 2 glycoprotein IgG & IgM,cardiolipin antibody IgG & IgM and lupus anticoagulant. Lastly, we reviewed that regardless of the etiology of FGR, we recommendadditional monitoring due to the increased risk for stillbirth and thatthe ultimate goal of management rests on balancing the risk of stillbirth with the risks ofprematurity. The recommended surveillance and management of pregnanciescomplicated by FGR includes serial assessment of growth (every 3 weeks) in addition toweekly UA Dopplers and surveillance. Timing of delivery willdepend on Doppler findings, amniotic fluid, monitoring, and interval growth; we will makespecific recommendations as the progresses. We reviewed fetalkick counts and calling guidelines. The patient will begin weekly FGR surveillance (UAR/NST/MARKUS) next weeksand we will reassess growth in 3 weeks. The patient was seen for an outpatient consultation beyond the performanceand interpretation of the ultrasound. The total time spent in all patientcare activities on the day of this visit was 15 minutes. IMPRESSION ----- 1) Growth parameters and estimated weight were consistent withintrauterine growth restriction. 2) anatomy appeared normal for gestational age. 3) Normal amniotic fluid volume. 4) Normal umbilical artery doppler flow studies. 5) The placenta is no longer low lying. Lyssa Beck MD [facility] US ORDERABLE S documented in this encounter Visit Diagnoses Diagnosis Maternal care for other known or suspected poor growth, second trimester, not applicable or unspecified- Primary documented in this encounter
--- OUTSIDE RECORDS SUMMARY | 2023-04-25 18:28 | XMS_ITS | Encounter Summary ---
Author Name Unknown Organization [place] Address [address] [place] [address] Care Team Providers Care Precision Assembler Name Role Phone Unavailable Primary Care Provider Unavailabl e Reason for Visit * Reason Comments Genetic Counseling 11% for growth * Consultation (Routine: Next available opening) - Pending Review Specialty Diagnoses / Procedures Referred By Lima ramirez Referred To Contact Diagnoses Abnormal ultrasound Lyssa Beck MD [address] [place] [address] Referral ID Status Reason Start Date Expiration Date V isits Requested Visits Authorized [id number] Pending Review 12/14/2022 12/14/2023 1 1 Encounter Details Date Type Department Care Team (Late st Contact Info) Description 12/14/2022 8:45 AM CDT Office Visit [facility] [place] [address] [place] [address] Lyssa Beck MD [address] [place] [address] Brandi Carrington GC [address] [place] [address] Abnormal ultrasound (Primary Dx); Encounter for procreative genetic counseling and testing [...] Recorded In the last 10 days, have magdy hernandez been in contact with someone who was confirmed or suspected to have Coronavirus/COVID-19? No / Unsure 12/14/2022 8:06 AM CDT documented as of this encounter Progress Notes * Brandi Carrington, GC - 12/14/2022 8:45 AM CDT [facility] Genetic Counseling Consult Patient: Cesar Hardy Date of : 1990 Date of Service: 12/14/22 Cesar was seen at the [facility] for genetic consultation. The indication for genetic counseling is abnormal ultrasound. The patient was accompanied to this visit by their , Cody. The session was conducted in Guatemalan. IMPRESSION/ PLAN 1. Cesar has not had genetic screening in this and declines options discussed today.She will further consider non-invasive screening (NIPS) and call me if she wishes to pursue this. For now, she wishes to wait until after her next ultrasound to consider this option and assessfetal growth at that time. 2. During today's [facility] visit, Cesar had a genetic counseling session only. Screening and diagnostic testing was discussed and declined. 3. Cesar had a level II comprehensive anatomy ultrasound today. Please see the ultrasound report for further details. 4. Cesar is scheduled for follow-up ultrasound with [facility] for 01/05/2023. HISTORY /Parity: Cesar's history is significant for: A daughter (5 1/2y) born vaginally with her current partner A son (2y) born vaginally with her current partner CURRENT Current Age: [age] year old Age at Delivery: 32 year old KENDRICK: 05/03/2023, by Ultrasound Gestational Age: 20w0d This is a single gestation. Intrauterine Growth Restriction (IUGR) Intrauterine growth restriction (IUGR) is commonly defined as an estimated weight belowthe tenth percentile for any gestational age. Per Dr. Beck, Cesar's is measuring at the 11th percentile after adjusting her dating. While she does not technically meet the definition of growth restriction, we still discussed IUGR more generally as prior to [facility] changing her dating, she would have been considered to have growth restriction. Pregnancies with IUGR typically have more significant growth restriction than pregnancies with small for gestational age whichcan sometimes be constitutionally small, for example, due to parental size and height. Establishingaccurate dating is always important before classifying IUGR. Classifications of IUGR In 70-80% of IUGR the growth restriction is asymmetrical which means the abdominal circumference ismore significantly decreased then the head and femurs. In 20-30% of IUGR the growth restriction is symmetrical and the head, abdomen, and femurs are proportionally decreased. Fetuses with asymmetrical IUGR have been noted to have a higher risk for major anomalies, low weight, mortality, hypertensive disorders of , delivery, and overall poor outcomes. Causes of IUGR Maternal factors: Age, race, socioeconomic status, maternal weight at , low pre- weight, chronic maternal hypoxia, exposures (smoking), small or large interpregnancy interval, assisted reproductive technologies, maternal diease (ex preeclampsia, chronic hypertension, lupus), malnutrition and gastrointestinal conditions (ex ulcerative colitis), and hematologic disorders factors: 5-20% of IUGR cases will be due to a genetic factor Aneuploidy (ex trisomy 18) Confined placental mosaicism (CPM) for trisomy 16 (CPM is three times more common in IUGR pregnancies) Microdeletion syndrome (ex Young-Hirschhorn and Cri du chat syndrome) Ring chromosomes Uniparental disomy of chromosome 6, 14, 16 Inborn errors of metabolism Single gene disorders (ex [place] de Carmona syndrome) 10% of IUGR will also have a congenital anomaly Single umbilical artery Anencephaly Omphalocele/ gastroschisis Congenital diaphragmatic hernia Renal agenesis/dysplasoia Cardiac malformations In utero infections accounts for less than 5-10% of IUGR cases Viral infections (ex cytomegalovirus (CMV), herpes) Parasitic infections (ex toxoplasmosis Multiple gestation pregnancies like twins and triplets have a higher chance of IUGR Placental Factors: Insufficiency, low placental weight, placenta acreeta, placental abruption, confined placental mosaicism, partial molar , single umbilical artery, velamentous cord insertion, abnormal first trimester screening biochemical markers Evaluation and Recommendations Additional ultrasounds and monitoring throughout the are common when IUGR is detected. Commonly growth ultrasounds are performed every few weeks as well as studies of the blood flow throughthe umbilical artery. Genetic amniocentesis is recommended to consider. Typically a chromosome microarray analysis is ordered to look for common genetic causes like aneuploidy and microdeletion syndromes. If other ultrasound findings or family history suggest the likelihood of other genetic conditions then a panel or single gene test may be recommended. Infection studies, such as CMV, is commonly ordered on the amniotic fluid as well. Depending on the gestational age, maternal serology may also be collected to aid in the interpretation of the amniotic fluid infection results. Non-invasive methods are also available and would likely include cell-free DNA aneuploidy screeningfor common trisomies and maternal serology studies. Evaluation and referral to a pediatrician would be recommended if there are any other concerns such as abnormalities, dysmorphic features, developmental delays, or growth problems after delivery. MEDICAL HISTORY Cesar???s reported medical history is not expected to impact management or risks to development. FAMILY HISTORY A three-generation pedigree was obtained today and is scanned under the [employer] tab in [employer]. The family history was reported by Cesar and their partner. The following significant findings were reported today: Cesar has a brother who at age 17 in an accident. She has two living brothers (39y,26y) and a sister (36y) who are healthy. Her mother (60y) and father (62y) are healthy. Cody (33y) is healthy. He has four brothers and two sisters who are healthy. Cody's mother (57y) recently had an abnormal screening and is being worked up for possible cancer. Otherwise, the reported family history is unremarkable for multiple miscarriages, stillbirths, defects, intellectual disabilities, known genetic conditions, cancer K<50y, and consanguinity. CARRIER SCREENING Expanded carrier screening is available to screen for autosomal recessive conditions and X-linked conditions in a large list of genes. Autosomal recessive conditions happen when a mutation has been inherited from the egg and sperm and include conditions like cystic fibrosis, thalassemia, hearing loss, spinal muscular atrophy, and more. X-linked conditions happen when a mutation has been inheritedfrom the egg and include conditions like fragile X syndrome. [place] screening was also reviewed. About [place] Screening As part of our conversation on carrier screening and how common or rare these condition are, we discussed the patient is of Vietnamese ancestry and the partner is of [place] ancestry. The patient declined carrier screening today. We discussed the following: Carrier screening does not test the but gives a risk assessment for the and future pregnancies to have the condition There are different size panels or list of conditions for carrier screening. Some conditions cause health problems for carriers Carrier screening does not test for all genetic and health conditions or risk factors There are limitations to current technology and results may be updated at a later date The results typically take 2-3 weeks. They will be available in [employer] and routed to the referring OBprovider. The patient can view them in [employer] and the lab's patient portal. The patient's partner will be recommended to have carrier screening if the patient is found to be acarrier for an autosomal recessive condition. If an individual is a carrier, family members could be as well. The patient is encouraged to share this information with relatives. The lab will communicate the neg-yv-arlhsr cost with the patient and will also provide an option toswitch to self-pay. The default is billing through insurance, and it is the patient's responsibility to respond to the communication if they would like to switch to self-pay. RISK ASSESSMENT FOR CHROMOSOME CONDITIONS We explained [...] has not had genetic screening in this and declines options discussed today. GENETIC TESTING OPTIONS Genetic testing during [...] done any time after 10 weeks gestation Screens for trisomy 21, trisomy 18, trisomy 13, and sex chromosome aneuploidies Cannot screen for open neural tube defects, maternal serum AFP after 15 weeks is recommended We discussed the following ultrasound options: Comprehensive level II ultrasound ( Anatomy Ultrasound) Ultrasound done between 18-20 weeks gestation Screens for major defects and markers for aneuploidy (like trisomy 21 and trisomy 18) Includes looking at the fetus/baby's growth, heart, organs (stomach, kidneys), placenta, and amniotic fluid We discussed the following diagnostic options: Amniocentesis Invasive diagnostic procedure done after 15 weeks gestation The procedure collects a small sample of amniotic fluid for the purpose of chromosomal testing and/or other genetic testing Diagnostic result; more than 99% sensitivity for chromosome abnormalities Testing for AFP in the amniotic fluid can test for open neural tube defects We discussed that an amniocentesis allows for the option to run a microarray. Microarray testing involves looking for small extra (duplications) or missing (deletions) pieces of DNA within the chromosomes. Chromosomal deletions and duplications may cause problems with an individual's health and development including learning disabilities, developmental delays, growth issues, physical differences,and psychiatric challenges. After a normal karyotype, yield for microarray is typically ~2% when the indication is advanced maternal age or positive screen, or 6% if there is a structural anomaly (Bruna, 2012). It was a pleasure to be involved with Cesar[facility]s [facility]. Ucoo-zl-nuzk time of the meeting was 35 minutes. Brandi Carrington GC, MS, [facility] Certified and [place] Licensed Genetic Counselor [facility] Maternal Medicine Office: [phone] [facility]: [phone] [facility] documented in this encounter Plan of Treatment Not on file documented as of this encounter Visit Diagnoses Diagnosis Abnormal ultrasound- Primary Abnormal findings on screening Encounter for procreative genetic counseling and testing documented in this encounter
--- OUTSIDE RECORDS SUMMARY | 2023-04-25 18:28 | XMS_ITS | Encounter Summary ---
Author Name Unknown Organization [place] Address [facility] [place] [address] Care Team Providers Care Fish Straightener Name Role Phone Unavailable Primary Care Provider Unavailabl e Reason for Referral * Diagnostic Imaging Ultrasound (Routine) - Pending Review Specialty Diagnoses / Procedures Referred By Lima ramirez Referred To Contact Radiology. Diagnoses related condition, antepartum Procedures Maternal US [facility] [place] Mustafa APRN [facility] [address] [place] [address] Referral ID Status Reason Start Date Expiration Date V isits Requested Visits Authorized [id number] Pending Review 12/11/2022 12/11/2023 1 1 Reason for Visit * Diagnostic Imaging Ultrasound (Routine) - Pending Review Specialty Diagnoses / Procedures Referred By Lima ramirez Referred To Contact Radiology. Diagnoses related condition, antepartum Procedures Maternal US [facility] [place] Mustafa APRN [facility] [address] [place] [address] Referral ID Status Reason Start Date Expiration Date V isits Requested Visits Authorized [id number] Pending Review 12/11/2022 12/11/2023 1 1 Encounter Details Date Type Department Care Team (Latest Contact Info) Description 12/14/2022 8:00 AM CDT - 12/14/2022 11:59 PM CDT Hospital Encounter [facility] [place] [address] [facility] [facility] [address] [place] [address] [place] Mustafa APRN [facility] [address] [place] [address] Lyssa Beck MD [address] [place] [address] related condition, antepartum Discharge Disposition: Home or Self Care Social [...] Procedure Name Priority Date/Time Associated Diagnosis Comments [facility] US COMPREHENSIVE SINGLE Routine 12/14/2022 8:52 AM CDT related condition, antepartum documented in this encounter Results * Maternal [...] ARROYO Study Date: 12/14/2022 8:13am Pat. NO: [id number] Referring ??: VIR[place] MUSTAFA Site: [facility] Worker: Trisha Calle RDMS : 1990 Age: 32 ----- INDICATION ----- Growth Restriction (FGR) and complete previa on outside ultrasound METHOD ----- Transabdominal ultrasound examination. View: Sufficient ----- Kebede . Number of fetuses: 1 DATING ----- ? Date ?Details ?Gest. age ?KENDRCIK LMP ?07/24/2022 ?Cycle: regular cycle ?20 w [...] ?Hadlock Humerus ?28.6 ?mm ? 19w 2d ?Aminah Weight Calculation: EFW ? 278 ? g ? 11% ?Hadlock EFW (lb,oz) ? 0 lb 10 ? oz EFW by ?Hadlock ([id number]-FL) Head / Face / Neck Biometry: Frozen Pie Maker ? 6.2 ? mm CM ?2.6 ? [...] cava. Inferior vena cava. 3-vessel ? view. 1-tydjzr-vgjobcu view. Cardiac position. Cardiac size. Cardiac rhythm. [...] the patient (reviewing medical records/tests), in direct ujfg-me-fjrz contact with the patient during her visit with the majority spent counseling and discussing the plan of care and documenting the visit in the electronic medical record. Please see note for details. Procedure Note Lyssa Beck MD - 12/14/2022 Comprehensive ----- Pat. Name:Geovanna ARROYO Date:12/14/2022 8:13am Pat. NO: [id number] MD:VIRGINIA MUSTAFA [facility]Trisha Calle RDMS :1990Age:32 ----- INDICATION ----- Growth Restriction (FGR) and complete previa on outside ultrasound METHOD ----- Transabdominal ultrasound examination. View: Sufficient ----- Kebede . Number of fetuses: 1 DATING ----- DateDetailsGest. age KENDRICK LMP 07/24/2022ycle: regular cycle20 w + 3 d 04/30/2023 Prior assessment 10/07/2022 GA: 10 w+ 2 d20 w + 0 d 05/03/2023 U/S 12/14/2022ased upon AC, BPD, Femur, HC19 w + [...] mm19w 3d Hadlock Humerus 28.6 mm19w 2d [facility] Weight Calculation: EFW 278 g11% Hadlock EFW (lb,oz) 0 lb 10 oz EFW by Hadlock ([id number]-[id number]) Head / Face / Neck Biometry: Frozen Pie Maker 6.2 mm CM 2.6 mm Nasal bone [...] Superior venacava. Inferior vena cava. 3-vessel view. 4-pjkyne-ztmhvsz view.Cardiac position. Cardiac size. Cardiac rhythm. Right [...] see the patient (reviewing medical records/tests), in lfwpgbjssf-mi-dmgk contact with the patient during her visit [...] and low lying. [place] Mustafa APRN, CNM IMG MFM US EMILY CROOKS documented in this encounter Visit Diagnoses Diagnosis related condition, antepartum documented in this encounter
--- OUTSIDE RECORDS SUMMARY | 2023-04-25 18:28 | XMS_ITS | Encounter Summary ---
Author Name Unknown Organization [place] Address [facility] [place] [address] Care Team Providers Care Unisaw Operator Name Role Phone Unavailable Primary Care Provider Unavailabl e Reason for Referral * Consultation (Routine: Next available opening) - Pending Review Specialty Diagnoses / Procedures Referred By Contlinn t Referred To Contact Diagnoses related condition, antepartum Kenneth, [place], JAMES CNM [facility] [address] [place] [address] Maternal Med [address] [facility] [address] [place] [address] Referral ID Status Reason Start Date Expiration Date V isits Requested Visits Authorized [id number] Pending Review 12/11/2022 12/11/2023 1 1 Question Answer Preferred Location: [facility] [place] KENDRICK 04/30/2022 Ultrasound Comprehensive US (>than 18 weeks GA) US PROC NONE MFM Issue OTHER (enter details in Comments) - suspected poor growth. complete placenta previa w/o hemorrage MFM Consultation (unrelated to Ultrasound findings): No Inflammatory Bowel Disease Clinic: Joint MFM and GI Consultation: No Chronic Kidney Disease: Joint MFM and Nephrology Consultation No Genetic Counseling Consultation: No fax [facility] Women Omer [place] Cooper [phone] Comments There is no height or weight on file to calculate BMI. >> Patient may proceed with recommendations for further testing as directed by the Maternal Medicine Specialist >> >> If requesting Echo: MFM will determine appropriate location for exam due to indication. >> If requesting Lung Maturity Amnio: If results indicate lung maturity, induction or C/S is recommended within 36 hours. Please schedule accordingly. Please be aware that coverage of these services is subject to the terms and limitations of your health insurance plan. Call member services at your health plan with any benefit or coverage questions. Encounter Details Date Type Department Care Team (Latest Contact Info) Description 12/11/2022 Transcribe Orders [facility] Maternal Medicine Center [place] [address] [place] [phone] [place] Cooper APRN CNM [facility] [address] [place] [address] related condition, antepartum (Primary Dx) Social History Tobacco Use Types Packs/Day Years Used Date Smoking Tobacco: Never Estimated Date of Delivery Comme nts Yes 05/03/2023 Based on Ultraso und Sex and Gender Information Value Date Recorded Sex Assigned at Not on file Gender Identity Not on file Sexual Orientation Not on file documented as of this encounter Plan of Treatment Scheduled Referrals Name Type Priority Associated Diagnoses Orde r Schedule Mat Med Ctr Referral - Referral Routine: Next available opening related condition, antepartum Expected: 12/11/2022 (Approximate), Expires: 06/09/2023 documented as of this encounter Visit Diagnoses Diagnosis related condition, antepartum- Primary documented in this encounter
--- OUTSIDE RECORDS SUMMARY | 2023-04-25 18:28 | XMS_ITS | Encounter Summary ---
Author Name Unknown Organization [place] Address [address] [place] [address] Care Team Providers Care County Attorney Name Role Phone Unavailable Primary Care Provider Unavailabl e Reason for Visit * Reason Comments Ultrasound L2-FGR, complete pre via Encounter Details Date Type Department Care Team (Late st Contact Info) Description 12/11/2022 PRE VISIT [facility] Maternal Medicine Center [place] [address] [place] [address] Floresita Elizalde RN Ultrasound (L2-FGR, complete previa) Social History Tobacco Use Types Packs/Day Years Used Date Smoking Tobacco: Never Tobacco Cessation:Counseling Given: Not Answered Estimated Date of Delivery Comme nts Yes [...]
--- OUTSIDE RECORDS SUMMARY | 2023-04-25 18:28 | XMS_ITS | Encounter Summary ---
Author Name Unknown Organization [place] Address [address] [facility] [place] [address] Care Team Providers Care Hollow Handle Knife Assembler Name Role Phone No Ref-Primary, Physician Primary Care Provider Encounter Details Date Type Department Care Team (Latest Contact Info) Description 01/20/2023 Travel Social History Tobacco Use Types Packs/Day [...] on filedocumented in this encounter Care Teams Hollow Handle Knife Assembler Relationship Specialty Start Date End Date No Ref-Primary, Physician PCP - General 12/25/22 documented as of this encounter
--- OUTSIDE RECORDS SUMMARY | 2023-04-25 18:28 | XMS_ITS | Encounter Summary ---
Author Name Unknown Organization [place] Address [address] [place] [address]. [place] [address] Care Team Providers Care Traveling Auditor Name Role Phone Unavailable Primary Care Provider Unavailabl e Encounter Details Date Type Department Care Team (Late st Contact Info) Description 12/10/2022 [facility] [address] [place] [address] Outside, Provider Social History Tobacco Use Types Packs/Day Years Used Date Smoking Tobacco: Never Sex and Gender Information Value Date Recorded [...]
--- OUTSIDE RECORDS SUMMARY | 2023-04-25 18:28 | XMS_ITS | Encounter Summary ---
Author Name Unknown Organization [place] Address [address] [place] [address] Care Team Providers Care Insurance Sales Representative Name Role Phone No Ref-Primary, Physician Primary Care Provider Encounter Details Date Type Department Care Team (Late st Contact Info) Description 01/13/2023 11:00 AM CDT [facility] [address] [place] [address] Juan Alberto Bañuelos MD [address] [place] [address] Tessa Elliott MD [address] [place] [address] Abnormal ultrasound Social History Tobacco Use Types Packs/Day Years [...] Procedure Name Priority Date/Time Associated Diagnosis Comments [facility] NON-INVASIVE SCREENING Routine 01/13/2023 10:36 AM CDT Abnormal ultrasound documented in this encounter Results * [facility] Non-Invasive Screening (01/13/2023 10:36 AM CDT) See Scanned Result [facility] NON-INVASIVE SCREENING-Pr anned 01/18/2023 10:20 AM CDT [facility] Blood STRUCTURE OF LEFT UPPER LIMB / Unknown Venipuncture / Unknown 01/13/2023 10:36 AM CDT 01/13/2023 10:36 AM CDT Brandi Carrington GC LAB - BLOOD ORDERABL ES [facility] [address] [place] [address] documented in this encounter Visit Diagnoses Diagnosis Abnormal ultrasound Abnormal findings on screening documented in this encounter Care Teams Insurance Sales Representative Relationship Specialty Start Date End Date No Ref-Primary, Physician PCP - General 12/25/22 documented as of this encounter
--- OUTSIDE RECORDS SUMMARY | 2023-04-25 18:28 | XMS_ITS | Encounter Summary ---
Author Name Unknown Organization [place] Address [address] [place] [id number] Care Team Providers Care Film Reader Name Role Phone No Ref-Primary, Physician Primary Care Provider Reason for Referral * Consultation (Routine: Next available opening) - Pending Review Specialty Diagnoses / Procedures Referred By Contac t Referred To Contact Diagnoses affected by growth restriction Juan Alberto Bañuelos MD [address] [place] [address] Referral ID Status Reason Start Date Expiration Date V isits Requested Visits Authorized [id number] Pending Review 01/05/2023 01/05/2024 1 1 * Consultation (Routine: Next available opening) - Pending Review Specialty Diagnoses / Procedures Referred By Contac t Referred To Contact Diagnoses affected by growth restriction Juan Alberto Bañuelos MD [address] [address] Referral ID Status Reason Start Date Expiration Date V isits Requested Visits Authorized [id number] Pending Review 01/05/2023 01/05/2024 14 14 Question Answer CTG/NST Yes * Diagnostic Imaging Ultrasound (Routine) - Pending Review Specialty Diagnoses / Procedures Referred By Contac t Referred To Contact Radiology. Diagnoses affected by growth restriction Procedures [facility] US OB Limited Single/Multiple Juan Alberto Bañuelos MD [address] [place] [address] Referral ID Status Reason Start Date Expiration Date V isits Requested Visits Authorized [id number] Pending Review 01/05/2023 01/05/2024 1 1 * Diagnostic Imaging Ultrasound (Routine) - Pending Review Specialty Diagnoses / Procedures Referred By Contac t Referred To Contact Radiology. Diagnoses affected by growth restriction Procedures [facility] US Comprehensive Single F/U Juan Alberto Bañuelos MD [address] [place] [address] Referral ID Status Reason Start Date Expiration Date V isits Requested Visits Authorized [id number] Pending Review 01/05/2023 01/05/2024 1 1 * Diagnostic Imaging Ultrasound (Routine) - Pending Review Specialty Diagnoses / Procedures Referred By Contac t Referred To Contact Radiology. Diagnoses affected by growth restriction Procedures [facility] US OB Limited Single/Multiple Juan Alberto Bañuelos MD [address] [place] [address] Referral ID Status Reason Start Date Expiration Date V isits Requested Visits Authorized [id number] Pending Review 01/05/2023 01/05/2024 1 1 Reason for Visit * Reason Comments Ultrasound [id number] 11%, [facility] Encounter Details Date Type Department Care Team (Late st Contact Info) Description 01/05/2023 10:00 AM CDT Office Visit [facility] [place] [address] [place] [address] Lyssa Beck MD [address] [place] [address] Juan Alberto Bañuelos MD [address] [facility] [address] [place], [place] [id number] affected by growth restriction (Primary Dx) Social [...] as of this encounter Progress Notes * Juan Alberto Bañuelos MD - 01/05/2023 10:00 AM CDT Please see Imaging tab under Chart Review for details of today's US at the [facility]. Juan Alberto Bañuelos MD Maternal- Medicine documented in this encounter Plan of Treatment Scheduled Orders Name Type Priority Associated Diagnoses Orde r Schedule Nonstress Test ([facility] Order Only} OB Routine affected by growth restriction 15 Occurrences starting 01/05/2023 until 01/06/2024 Scheduled Referrals Name Type Priority Associated Diagnoses Orde r Schedule [facility] Office Visit Referral Routine: Next available opening affected by growth restriction Weekly for 14 Occurrences starting 01/05/2023 until 01/06/2024 [facility] Genetic Counseling Referral Routine: Next available opening affected by growth restriction Expected: 01/05/2023 (Approximate), Expires: 01/06/2024 documented as of this encounter Results * [facility] US Comprehensive Single F/U (01/27/2023 11:36 AM [...] CDT ?Comp Follow Up ----- Pat. Name: JOEY HARDY ? Study Date: ??01/27/2023 11:00am Pat. NO: ??[id number] ?Referring ??MD: TORITO MUSTAFA Site: ??[facility] ? Tubing Mill Operator: Trisha Calle RDMS : ??1990 ?Age: ?? [...] lb 12 ? oz EFW by ?Hadlock ([id number]) Head / Face / Neck Biometry: Assembly Machine Feeder ? 5.9 ? mm CM ?4.1 ? mm ANATOMY ----- The following structures appear normal: Head / Neck ? Cranium. Head size. Head shape. Lateral ventricles. Midline falx. Cavum septi pellucidi. Cerebellum. Cisterna magna. Thalami. Face ? Lips. Profile. Nose. Heart / Thorax ?4-chamber view. RVOT view. LVOT view. 3-zxouyd-htpmqwa view. ? Diaphragm. Abdomen ? Stomach. Kidneys. [...] Comp Follow Up ----- Pat. Name: JOEY HARDY Study Date: 01/27/2023 11:00am Pat. NO: [id number] Referring MD: TORITO MUSTAFA Site: [facility] Tubing Mill Operator: Trisha Calle RDMS : 1990 Age: 32 [...] 1 lb 12 oz EFW by Hadlock ([id number]) Head / Face / Neck Biometry: Assembly Machine Feeder 5.9 mm CM 4.1 mm ANATOMY ----- The following structures appear normal: Head / Neck Cranium. Head size. Head shape.Lateral ventricles. Midline falx. Cavum septi pellucidi. Cerebellum.Cisterna magna. Thalami. Face Lips. Profile. Nose. Heart / Thorax 4-chamber view. RVOT view. LVOT view.9-gzdhxu-ohvomtl view. Diaphragm. Abdomen Stomach. Kidneys. Bladder. Spine [...] fluid volume. 4) Reactive NST. Juan Alberto SURESH [facility] US ORDERABL ES * [facility] US OB Limited Single/Multiple (01/20/2023 9:41 AM CDT) Anatomical Region Laterality Modality Ultrasound 01/20/2023 9:09 AM CDT Impressions 01/20/2023 10:13 AM CDT IMPRESSION ----- 1) Normal amniotic fluid volume. 2) Normal umbilical artery doppler flow studies. 3) monitoring without decelerations. Narrative 01/20/2023 10:13 AM CDT ?Limited ----- Pat. Name: ZANEFranko AURELIANO ? Study Date: ??01/20/2023 9:09am Pat. NO: ??[id number] ?Referring ??MD: TORITO MUSTAFA Site: ??[facility] ? Tubing Mill Operator: Bhavani Morel RDMS : ??1990 ?Age: ?? 32 ----- INDICATION ----- growth restriction (FGR) METHOD ----- Transabdominal ultrasound examination. View: Sufficient ----- [place] . Number of fetuses: 1 DATING ----- ? Date ?Details ?Gest. age ?KENDRICK LMP ?07/24/2022 ?Cycle: regular cycle ?25 w + 5 d ? 04/30/2023 Prior assessment ? 10/07/2022 ?GA: 10 w + 2 d ? 25 w + 2 d ? 05/03/2023 Assigned dating ?Dating performed on 01/13/2023, based on the prior assessment (on 10/07/2022) ? 25 w + 2 d ? 05/03/2023 GENERAL EVALUATION ----- Cardiac activity present. FHR 157 bpm. movements visualized. Presentation Variable. Placenta Posterior, anterior, low lying Umbilical cord Cord vessels: 3 vessel cord. Amniotic fluid Amount of AF: normal. MVP 5.8 cm. DOPPLER ----- Umbilical Artery: PI ?1.39 ?93% ? Jesus HR ?149 ? bpm MATERNAL STRUCTURES ----- Right Ovary ?Not examined Left Ovary ?Not examined NON STRESS TEST ----- NST interpretation: Appropriate for gestational age. Test duration 25 min. Baseline FHR 145 bpm. Baseline variability: [...] Procedure Note Juan Alberto Bañuelos MD - 01/20/2023 Limited ----- Pat. Name: JOEY HARDY Study Date: 01/20/2023 9:09am Pat. NO: [id number] Referring MD: TORITO MUSTAFA Site: [facility] Tubing Mill Operator: Bhavani Morel RDMS : 1990 Age: 32 ----- INDICATION ----- growth restriction (FGR) METHOD ----- Transabdominal ultrasound examination. View: Sufficient ----- [place] . Number of fetuses: 1 DATING ----- DateDetailsGest. age KENDRICK LMP 07/24/2022ycle: regular cycle25 w + 5 d 04/30/2023 Prior assessment 10/07/2022 GA: 10 w+ 2 d25 w + 2 d 05/03/2023 Assigned dating Dating performed on 01/13/2023, based onthe prior assessment (on 10/07/2022) 25 w + 2 05/03/2023 GENERAL EVALUATION ----- Cardiac activity present. FHR 157 bpm. movements visualized. Presentation Variable. Placenta Posterior, anterior, low lying Umbilical cord Cord vessels: 3 vessel cord. Amniotic fluid Amount of AF: normal. MVP 5.8 cm. DOPPLER ----- Umbilical Artery: PI 1.3993% Jesus HR 149 bpm MATERNAL STRUCTURES ----- Right Ovary Not examined Left Ovary Not examined NON STRESS TEST ----- NST interpretation: Appropriate for gestational age. Test duration 25 min.Baseline FHR 145 bpm. Baseline variability: moderate. Accelerations:present. Decelerations: absent. Uterine activity: absent. Acoustic stimulation: [...] Normal umbilical artery doppler flow studies. 3) monitoring without decelerations. Juan Alberto Bañuelos MD Jamie [facility] US ORDERABL ES * [facility] US OB Limited Single/Multiple (01/13/2023 10:05 AM CDT) [...] AM CDT ?Limited ----- Pat. Name: JOEY HARDY ? Study Date: ??01/13/2023 9:39am Pat. NO: ??[id number] ?Referring ??MD: TORITO MUSTAFA Site: ??[facility] ? Tubing Mill Operator: Elissa Clarke RDMS : ??1990 ?Age: [...] cm. DOPPLER ----- Umbilical Artery: normal PI ?1 ?80% ? Jesus HR ?146 ? bpm [...] - 01/13/2023 Limited ----- Pat. Name: JOEY HARDY Study Date: 01/13/2023 9:39am Pat. NO: [id number] Referring MD: TORITO MUSTAFA Site: [facility] Tubing Mill Operator: Elissa Clarke RDMS : 1990 Age: 32 [...] reactive and reassuring. Juan Alberto Bañuelos MD [facility] US ORDERABL ES documented in this encounter Visit Diagnoses Diagnosis affected by growth restriction- Primary affected by growth restriction affected by growth restriction affected by growth restriction documented in this encounter Care Teams Film Reader Relationship Specialty Start Date End Date No Ref-Primary, Physician PCP - General 12/25/22 documented as of this encounter
--- OUTSIDE RECORDS SUMMARY | 2023-04-25 18:28 | XMS_ITS | Encounter Summary ---
Author Name Unknown Organization [place] Address [address] [place] [address] Care Team Providers Care Mixing Tank Operator Name Role Phone No Ref-Primary, Physician Primary Care Provider Reason for Referral * Diagnostic Imaging Ultrasound (Routine) - Pending Review Specialty Diagnoses / Procedures Referred By Silkeac t Referred To Contact Radiology. Diagnoses Encounter for ultrasound to check growth Procedures [facility] US Comprehensive Single F/U Lyssa Beck MD [address] [facility] [address] [place] [address] Referral ID Status Reason Start Date Expiration Date V isits Requested Visits Authorized [id number] Pending Review 12/14/2022 12/14/2023 1 1 Reason for Visit * Diagnostic Imaging Ultrasound (Routine) - Pending Review Specialty Diagnoses / Procedures Referred By Contlinn t Referred To Contact Radiology. Diagnoses Encounter for ultrasound to check growth Procedures [facility] US Comprehensive Single F/U Lyssa Beck MD [address] [place] [address] Referral ID Status Reason Start Date Expiration Date V isits Requested Visits Authorized [id number] Pending Review 12/14/2022 12/14/2023 1 1 Encounter Details Date Type Department Care Team (Latest Contact Info) Description 01/05/2023 9:30 AM CDT - 01/05/2023 11:59 PM CDT Hospital Encounter [facility] [place] [address] [place] [address] Lyssa Beck MD [address] [place] [address] Juan Alberto Bañuelos MD [address] [place] [address] Discharge Disposition: Home or Self Care Social [...] Procedure Name Priority Date/Time Associated Diagnosis Comments [facility] COMPREHENSIVE SINGLE F/U Routine 01/05/2023 10:09 AM CDT documented in this encounter Results * [facility] US Comprehensive Single F/U (01/05/2023 10:09 AM [...] ----- Pat. Name: JOEY HARDY Study Date: 01/05/2023 9:38am Pat. NO: [id number] Referring ??: TORITO MUSTAFA Site: [facility] [employer] Advisor: Jhony Ross RDMS : 1990 Age: 32 [...] 1 lb 0 ?oz EFW by ?Hadlock ([id number]) Head / Face / Neck Biometry: Title Clerk ? 5.6 ? mm CM ?3.8 ? mm ANATOMY ----- The following structures appear normal: Head / Neck ? Cranium. Head size. Head shape. Lateral ventricles. Midline falx. Cavum septi pellucidi. Cerebellum. Cisterna magna. Thalami. Face ? Lips. Profile. Nose. Heart / Thorax ?4-chamber view. RVOT view. LVOT view. 1-mhqgck-vsxuurb view. ? Diaphragm. Abdomen ? Stomach. Kidneys. [...] genetic screening at her last visit at [facility] and declined aneuploidy screening. She is otherwise [...] 01/05/2023 Comp Follow Up ----- Pat. Name:Geovanna HARDY Date:01/05/2023 9:38am Pat. NO: [id number] MD:TORITO MUSTAFA [facility] Ross RDMS :1990Age:32 ----- INDICATION ----- Low [...] 1 lb 0 oz EFW by Hadlock ([id number]-FL) Head / Face / Neck Biometry: Title Clerk 5.6 mm CM 3.8 mm ANATOMY ----- The following structures appear normal: Head / Neck Cranium. Head size. Head shape.Lateral ventricles. Midline falx. Cavum septi pellucidi. Cerebellum.Cisterna magna. Thalami. Face Lips. Profile. Nose. Heart / Thorax 4-chamber view. RVOT view. LVOT view.3-iaeynr-bwdfwwx view. Diaphragm. Abdomen Stomach. Kidneys. Bladder. Spine [...] genetic screening at her last visit at [facility] and declinedaneuploidy screening. She is otherwise healthy [...] no longer low lying. Lyssa Beck MD [facility] US ORDERABLE S documented in this encounter Visit Diagnoses Not on filedocumented in this encounter Care Teams Mixing Tank Operator Relationship Specialty Start Date End Date No Ref-Primary, Physician PCP - General 12/25/22 documented as of this encounter
--- OUTSIDE RECORDS SUMMARY | 2023-04-25 18:28 | XMS_ITS | Encounter Summary ---
Author Name Unknown Organization [place] Address [facility] [facility] [place] [address] Care Team Providers Care Shackler Name Role Phone Unavailable Primary Care Provider Unavailabl e Encounter Details Date Type Department Care Team (Latest Contact Info) Description 12/14/2022 Travel Social History Tobacco Use Types Packs/Day [...]
--- OUTSIDE RECORDS SUMMARY | 2023-04-25 18:28 | XMS_ITS | Encounter Summary ---
Author Name Unknown Organization [place] Address [address] [facility] [place] [address] Care Team Providers Care Rehabilitation Services Counselor Name Role Phone No Ref-Primary, Physician Primary Care Provider Reason for Referral * Diagnostic Imaging Ultrasound (Routine) - Pending Review Specialty Diagnoses / Procedures Referred By Contac t Referred To Contact Radiology. Diagnoses affected by growth restriction Procedures [facility] OB Limited Single/Multiple Juan Alberto Bañuelos MD [address] [facility] [address] [place] [address] Referral ID Status Reason Start Date Expiration Date V isits Requested Visits Authorized [id number] Pending Review 01/05/2023 01/05/2024 1 1 Reason for Visit * Diagnostic Imaging Ultrasound (Routine) - Pending Review Specialty Diagnoses / Procedures Referred By Contac t Referred To Contact Radiology. Diagnoses affected by growth restriction Procedures [facility] OB Limited Single/Multiple Juan Alberto Bañuelos MD [address] [place] [address] Referral ID Status Reason Start Date Expiration Date V isits Requested Visits Authorized [id number] Pending Review 01/05/2023 01/05/2024 1 1 Encounter Details Date Type Department Care Team (Latest Contact Info) Description 01/20/2023 9:08 AM CDT - 01/20/2023 11:59 PM CDT Hospital Encounter [facility] [place] [address] [place] [address] Juan Alberto Bañuelos MD [address] [place] [address] affected by growth restriction Discharge [...] Procedure Name Priority Date/Time Associated Diagnosis Comments [facility] US OB LIMITED SINGLE/MULTIPLE Routine 01/20/2023 9:41 AM CDT affected by growth restriction documented in this encounter Results * [facility] US OB Limited Single/Multiple (01/20/2023 9:41 AM CDT) Anatomical Region Laterality Modality Ultrasound 01/20/2023 9:09 AM CDT Impressions 01/20/2023 10:13 AM CDT IMPRESSION ----- 1) Normal amniotic fluid volume. 2) Normal umbilical artery doppler flow studies. 3) monitoring without decelerations. Narrative 01/20/2023 10:13 AM CDT ?Limited ----- Pat. Name: JOEY HARDY ? Study Date: ??01/20/2023 9:09am Pat. NO: ??[id number] ?Referring ??MD: TORITO MUSTAFA Site: ??[facility] ? Machine Boss: Bhavani Morel RDMS : ??1990 ?Age: ?? [...] HARDY Study Date: 01/20/2023 9:09am Pat. NO: [id number] Referring MD: TORITO MUSTAFA Site: [facility] Machine Boss: Bhavani Morel RDMS : 1990 Age: 32 [...] monitoring without decelerations. Juan Alberto Bañuelos MD [facility] ORDERABL ES documented in this encounter Visit Diagnoses Diagnosis affected by growth restriction documented in this encounter Care Teams Rehabilitation Services Counselor Relationship Specialty Start Date End Date No Ref-Primary, Physician PCP - General 12/25/22 documented as of this encounter
[2023-04-25 18:33] VITALS: PULSE 59; O2SAT 100
[2023-04-25 18:34] VITALS: BP 99/62; PULSE 60; TEMP 36.7
[2023-04-25 18:50] VITALS: BMI 24.3
--- NOTE | 2023-04-25 19:15 | P.LDBA_ITS ---
Subjective History of Present Illness Date Seen: 04/25/23 Narrative: Cesar is being admitted to Labor and Delivery for induction of labor for IUGR in 9%tile. She is a 32 year old at 38.6 weeks gestation. Her full history and physical was dictated by Dangelo Schultz CNM on 04/05/23. Please see this for details. Specific Issues/Plans G 3 P 2 Sigh-reen *KENDRICK changed by [facility] to 1st trimester US, 05/03/2022 IOL scheduled 04/26 H & P done 04/05- by Dangelo Schultz 1. Nausea and vomiting of . Rx submitted for zofran. 2. Posterior low lying placenta, 8 mm from internal OS per [facility]; RESOLVED Follow up at 28-32 weeks 01/05/2023: >2 cm from os 3. IUGR, continued growth monitoring with [facility] IUGR, EFW 3%ile on anatomy scan Perinatology referral [facility]: Completed 12/14/2022 01/05/2023: EFW 6%, normal dopplers Weekly testing with [facility] 01/13: Genetic testing, NIPT completed; doppler and NST WNL 01/27 (26 weeks): EFW 10%ile, repeat growth in 3 weeks 02/17: EFW 4%ile, weekly NST, MARKUS, and Dopplers, repeat growth in 3 weeks 02/24: NST reactive w/ normal dopplers 03/10: EFW 5%ile, Continue weekly doppler & NST; if stable, recommend IOL at 39 0/7 weeks 03/19: NST reactive, normal fluid and dopplers 03/24: NST reactive w/ normal dopplers and MARKUS 04/01: [facility] US EFW 6%. Recommended weekly NST with MARKUS and UA dopplers. Repeat growth in 3 weeks if undelivered (schedule on 04/21 with [facility]). Recommend delivery at 38.0-39.0 weeks. ([facility] had discussed with the pt delivery around 04/26) 04/21: [facility] EFW 9%, 5 lb 15 oz. SDP 7.6. 4. Anemia in was taking iron supplement then stopped mid with hgb of 11.1 instructed to restart at 34 weeks Hgb 10.5 Ferritin 6.1 Taking PO iron and Ferritin improved at 36 weeks. 5. Failed 1 hour GTT, 3 hr WNL 6. GBS+ Covid vaccine: had initial series. declines booster Flu: Tdap: 03/24/2023 RSV: declined OB - Problem Based A/P Additional Plan (1) IUGR (intrauterine growth restriction) affecting care of mother: Status: Acute (2) Anemia affecting : Status: Acute (3) Encounter for induction of labor: Status: Acute Plan Assessment:?? at 38.6 weeks gestation?? GBS positive??? Labor type: Induced, no labor? Category 1 FHR pattern.? complicated by: IUGR EFW 9% Anemia in GBS + Plan:?? * ?Admit to L & D? * IV access: SL * Monitoring per policy: continuous ? * Candidate for analgesia of choice.? Planning unmedicated labor for pain management * Reviewed risks and benefits of IOL with [facility] balloon, pitocin vs cytotec/cervadil. Pt prefers cervadil. Pitocin to follow if needed. * GBS phrophylaxis to be initiated for GBS positive status when in active labor. Will treat with antibiotics per protocol.? * Patient encouraged to reposition and ambulate to promote physiologic labor and . * Anticipate ? Delivery/Labor/Induction Plan Plan: induction Induction method: Cervidil OB Exam Physical Exam Vital signs: Temp Pulse BP Pulse Ox 98.1 F 60 99/62 100 04/25/23 18:34 04/25/23 18:34 04/25/23 18:34 04/25/23 18:33 Narrative: Vitals Reviewed Constitutional:? Alert and oriented x3 HEENT:? Normocephalic, atraumatic Neck:? Supple Lungs:? Clear to auscultation bilaterally Heart:? Regular rate and rhythm, no murmur, rub or gallop Abdomen:? Soft, nontender, and gravid. Vertex by Nikolas's, confirmed with cervical exam. Extremities:? No edema or erythema Cervix: 1 cm/70%/-2 station/vertex NST: 120 bpm/moderate variability/+accelerations/-decelerations/ 3-5 minutes apart contractions, pt does not feel them at this time. Detailed Labor and Delivery Exam Patient Gravid: Yes
[2023-04-25] MEDS: DINOPROSTONE 10 MG VAGINAL INSERT VAGINAL (19:52)
[2023-04-25 20:20] LABS: Basophils Absolute Auto 0.02 K/uL (0.00-0.30); Basophils Percent Auto 0.3 % (0.0-3.0); Eosinophils Absolute Auto 0.02 K/uL (0.00-0.50); Eosinophils Percent Auto 0.3 % (0.0-7.0); Hematocrit 33.8 % (33.0-51.0); Hemoglobin* 11.3 gm/dL (12.0-16.0); Immature Granulocytes Abs Auto 0.01 K/uL (0.00-0.30); Immature Granulocytes Pct Auto 0.1 %; Lymphocytes Absolute Auto 1.85 K/uL (0.90-2.90); Lymphocytes Percent Auto 23.3 % (20-44); Mean Corpuscular HGB Conc 33 gm/dL (32-36); Mean Corpuscular Hemoglobin 30 pg (26-34); Mean Corpuscular Volume 88 fL (80-100); Monocytes Percent Auto 6.8 % (0.0-11.0); Neutrophils Absolute Auto 5.51 K/uL (1.7-7.0); Neutrophils Percent Auto 69.2 % (42.0-72.0); Platelet Count* 162 K/uL (140-440); RDW Coefficient of Variation % 13.9 % (11.5-15.5); Red Blood Count 3.83 m/uL (4.00-5.20); White Blood Count* 7.95 K/uL (4.50-11.00)
[2023-04-25 20:33] LABS: Slide Review Reflex No
[2023-04-25 23:32] VITALS: BP 96/60; PULSE 53; PULSE 54; TEMP 36.8; O2SAT 98
[2023-04-25] MEDS: hydrOXYzine pamoate 25 MG CAPSULE 100 MG PO (23:38)
[2023-04-26] VITALS (21 sets, daily range): BP systolic 82–118; BP diastolic 51–69; PULSE 46–64; RESP 16; TEMP 36.6–36.9; O2SAT 97
[2023-04-26] MEDS: LACTATED RINGERS 1000 ML 1,000 ML 125 ML IV ×2 (02:24→09:50)
[2023-04-26] MEDS: AMPICILLIN 2 GM in 0.9 % SODIUM CHLORIDE Mini-bag 100 ML IVPB (02:25)
[2023-04-26] MEDS: MORPHINE 10 MG/ML inj IM (02:28)
--- NOTE | 2023-04-26 05:44 | PM.OBPNL ---
Subjective Date Seen: 04/26/23 Narrative: ?Joanna is currently resting. She was painful with her contractions at 0230 and given IV morphine for pain. Cervidil was removed at 0500 for repetitive lates without resolution with position change and IV fluid bolus. VE by RN at that time was 4/80/-2. She is currently rolf regularly and FHR currently Cat II with minimal variability, + accels, - decels. Objective Exam: VSS, afebrile General Appearance:? Calm, cooperative. ?No acute distress. ? Psychiatric Exam: Alert and oriented, appropriate affect Abdomen: Gravid Ctx: ?Q [] min apart. ?[Mild] ?[Moderate] ?[Strong] FHTs: ?Baseline: []. ? ? Variability: []. ?Accels: []. ? ?Decels: ?[]. SVE: [] Membranes: [Intact] ?[SROM ?AROM X hours] Vital Signs: Last Vital Signs Temp 98.2 F 04/25/23 23:32 Pulse 54 L 04/25/23 23:32 BP 96/60 04/25/23 23:32 Pulse Ox 98 04/25/23 23:32 Contractions Monitor mode: External Contraction Frequency: 2-3 Contraction pattern: Regular Contraction intensity: Moderate Assessment Assessment: induction ongoing Status: Category ll Heart Rate Baseline: 120 Ventilator Specialist Variability: Minimal (3-5) Monitor Accelerations: Present Monitor Decelerations: None Plan Plan: Assessment:?? at 39 wks gestation?? GBS positive Patient is coping well with challenges of labor.?? Labor type: Induced, Early labor? Category 2 FHR pattern.? complicated by: IUGR- EFW 9% Anemia GBS + Labor complicated by: Late decels now resolved ? Plan:?? Antibiotic prophylaxis treatment per protocol Continue with routine intrapartum cares as ordered.?? Patient encouraged to move and change positions to promote physiologic labor and .?? Nonpharmacologic comfort measures per patient preference. Candidate for analgesia of choice if desired. Reevaluate labor progress PRN. Anticipate progress to NVD. ?
[2023-04-26] MEDS: AMPICILLIN 1 GM in 0.9 % SODIUM CHLORIDE Mini-bag 100 ML IVPB ×3 (06:17→14:23)
--- NOTE | 2023-04-26 08:17 | PM.OBPNL ---
Subjective Time Seen by Provider: 08:00 Date Seen: 04/26/23 Narrative: Cesar had a cervidil placed last night. It was removed early r/t repetitive late decelerations that were noted early this morning. She also received morphine to help her rest last night. She has continued to contract since removal of the cervidil, but admits while she feels them, they are very mild. Her partner is at the bedside for support. She is open to pain medication if needed, but prefers to avoid an epidural. Objective Exam: VSS, afebrile General Appearance:? Calm, cooperative. No acute distress. ? Psychiatric Exam: Alert and oriented, appropriate affect Abdomen: Gravid Ctx: ?Q 2-5 min apart. ?Mild FHTs: Baseline: 120 . Variability: min - mod. Accels: rare. Decels: occ late decelerations. SVE: 4/80/-2 per RN at previous check Membranes: Intact ? Vital Signs: Last Vital Signs Temp 98.2 F 04/26/23 07:49 Pulse 60 04/26/23 07:47 Resp 16 04/26/23 07:49 BP 92/56 L 04/26/23 07:47 Pulse Ox 98 04/25/23 23:32 Plan Plan: Assessment:?? at 39.0 gestation?? GBS Positive Patient is coping well with challenges of labor.?? Labor type: Induced, Early labor? complicated by: -Low lying placenta, RESOLVED -IUGR. EFW 9%m 5 lb 15 oz on 04/21/23 -anemia -Failed 1 hr GCT, passed 3 hr Labor complicated by: -late decelerations ? Plan:?? Reviewed options w/ pt. Decision made to proceed with pitocin augmentation. Will continue to monitor for decelerations/ tolerance of labor, encourage position changes as needed to help resolve. Continue with routine intrapartum cares as ordered.?? Patient encouraged to move and change positions to promote physiologic labor and .?? Nonpharmacologic comfort measures per patient preference. Candidate for analgesia of choice if desired. Anticipate progress to NVD.
[2023-04-26] MEDS: OXYTOCIN 30 unit/500 ML in NS 30 UNIT/500 ML BAG IVPB (08:30)
[2023-04-26] MEDS: ONDANSETRON 2 MG/ML inj 4 MG IV (09:59)
--- NOTE | 2023-04-26 16:56 | W.PM.OBVAGDE ---
OB Procedure Vag Delivery Mother Details Mother Details: The patient is a 32 year-old, 3, now Para 3, admitted on 04/25/23 at 38.6 Days gestation. Delivery at 39.0 weeks on 04/26/23. : 3 Para: 3 Weeks Gestation: 39.0 Admission Date: 04/25/23 Additional Details Amniotic Membrane Status: SROM Amniotic Membrane Rupture Date: 04/26/23 Amniotic Membrane Rupture Time: 15:30 Amniotic Membrane Fluid Description: Clear Analgesia/Anesthesia Type: None Waterbirth: No Pitcoin: Yes (augmentation & AMTSL) Intrapartal Events: Labor Augmentation and Labor Induction Induction Method: Cervidil Delivery augmentation: pitocin Labor Onset: 15:30 Complete: 16:27 Pushin:21 Heart: heart tones during second stage: After SROM occurred, FHR baseline 125, min - mod variability. Early and variable decels noted w/ ctx. Delivery Details Delivery Date: 04/26/23 Delivery Time: 16:28 Route of delivery: Gender: Female Viability: Alive; Heart Rate Present Position at Delivery: OA Delivery Details: At 1621, CNM at bedside to check on Joanna. Breathing through intense ctx, requesting pain medication. Options reviewed, and nitrous requested. Delivered occurred before the nitrous could be started. SVE done, noted to be 6-7 cm, stretchy cervix, 90%, and -1 station. Spontaneous pushing noted at this time, and Sirangel encourage to breath through it as best as she could. CNM remained at bedside. A few minutes later she was noted to be , and the head delivered quickly after. At that time, Joanna stopped pushing and was attempting to clamp her legs together and pull herself away and up the bed. Gentle downward traction done, w/ no delivery of the shoulders. RNs at bedside assisted her to open her legs and she was instructed to push. Shoulders than delivered without difficulty. About 25 seconds between delivery of head to body, assumed r/t lack of pushing and not a shoulder dystocia. ? ? Spontaneous vaginal?delivery?at 1628 of?a viable? female .??Delivered in vertex OA position.??Infant placed on maternal abdomen.??Cry noted with stimulation.??Cord?was clamped and cut after a 5 minute delay.? Shoulder dystocia: no? Nuchal cord: no? Meconium stained?fluid: no? Water : no? ? ? 7 at 1 minute and 9 at 5 minutes.? ? Placenta delivered spontaneously and?complete?at 1638 with a?3 vessel?cord.??Membranes slowly teased out with ring forceps. Bleeding controlled with fundal massage and?pitocin?for AMTSL.? ? Mother and infant were stable after?delivery.? ? Lacerations:?No lacerations noted ? Bleeding?post?delivery?was: moderate, but decreased with fundal massage and removal of a few clots with. ?The fundas was firm to palpation.? Blood loss: 75?mL.? Blood loss measurement type: QBL? ? ? Sponge,?lap?and needles counts are correct.? Mother and infant were stable after?delivery.? 1 Minute Interval Total Score: 7 5 Minute Interval Total Score: 9 Additional Details Shoulder Dystocia: No Placenta Delivery Time: 16:38 Placental Delivery Description: Spontaneous Procedure Done: Global Blood Loss: 75 Laceration: None Blood Loss Measurement Type: QBL Bakri Used: No Sponge/Need Count Correct: Yes Cord Vessel Description: 3 Vessels Event Summary Status: Mother and were stable after delivery. Disposition: floor
[2023-04-27 04:30] VITALS: BP 84/48; PULSE 55; RESP 16; TEMP 36.7; O2SAT 97
--- NOTE | 2023-04-27 07:17 | PM.OBDSVD1 ---
DS: Providers Provider Date Seen: 04/27/23 Date of admission: 04/25/23 19:13 Primary care physician: Tatyana Watson CNP Admitting Clinician: Alexis Brooks CNM Attending Physician on discharge: Alexis Brooks CNM Date of Discharge: 04/27/23 DS: Diagnosis Discharge Diagnosis (1) care and examination immediately after delivery: Status: Acute (2) Lactating mother: Status: Acute Exam Narrative: Exam Narrative: GENERAL APPEARANCE:? normal affect, alert, no distress MOOD:? appropriate CHEST:? clear to auscultation HEART:? regular rate and rhythm ABDOMEN:? soft, non-tender the uterine fundus is 1 cm below Umbilicus, Midline and is appropriate for the stage of recovery. PERINEUM:? mild edema of the perineum, intact. EXTREMITIES:? normal and no edema Const: Vital Signs, click to edit/add: Vital Signs - 24 hr 04/26/23 07:47 04/26/23 07:49 04/26/23 09:28 Temperature 98.2 F Pulse Rate 60 49 L Pulse Rate [Pulse Oximeter] Respiratory Rate 16 Blood Pressure 92/56 L 92/56 L Blood Pressure [Le ft Arm] Pulse Oximetry Oxygen Delivery [facility] 04/26/23 09:49 04/26/23 10:29 04/26/23 11:29 Temperature 98.3 F Pulse Rate 57 L 53 L Pulse Rate [Pulse Oximeter] Respiratory Rate 16 Blood Pressure 99/56 L 99/63 Blood Pressure [Le ft Arm] Pulse Oximetry Oxygen Delivery [facility] 04/26/23 12:22 04/26/23 12:22 04/26/23 13:27 Temperature 97.9 F Pulse Rate 62 51 L Pulse Rate [Pulse Oximeter] Respiratory Rate 16 Blood Pressure 107/54 L 99/59 L Blood Pressure [Le ft Arm] Pulse Oximetry Oxygen Delivery [facility] 04/26/23 14:26 04/26/23 14:35 04/26/23 15:28 Temperature 97.9 F Pulse Rate 48 L 51 L Pulse Rate [Pulse Oximeter] Respiratory Rate 16 Blood Pressure 97/61 94/60 Blood Pressure [Le ft Arm] Pulse Oximetry Oxygen Delivery [facility] 04/26/23 16:39 04/26/23 16:39 04/26/23 16:55 Temperature 97.9 F Pulse Rate 58 L 48 L Pulse Rate [Pulse Oximeter] Respiratory Rate 16 Blood Pressure 114/56 L 111/64 Blood Pressure [Le ft Arm] Pulse Oximetry Oxygen Delivery [facility] 04/26/23 16:55 04/26/23 17:10 04/26/23 17:10 Temperature Pulse Rate 48 L Pulse Rate [Pulse Oximeter] Respiratory Rate 16 16 Blood Pressure 108/63 Blood Pressure [Le ft Arm] Pulse Oximetry Oxygen Delivery [facility] 04/26/23 17:25 04/26/23 17:25 04/26/23 17:40 Temperature Pulse Rate 50 L 48 L Pulse Rate [Pulse Oximeter] Respiratory Rate 16 Blood Pressure 118/69 107/63 Blood Pressure [Le ft Arm] Pulse Oximetry Oxygen Delivery [facility] 04/26/23 17:40 04/26/23 17:55 04/26/23 17:55 Temperature Pulse Rate 53 L Pulse Rate [Pulse Oximeter] Respiratory Rate 16 Blood Pressure 106/68 Blood Pressure [Le ft Arm] Pulse Oximetry Oxygen Delivery [facility] 04/26/23 17:55 04/26/23 18:10 04/26/23 18:10 Temperature Pulse Rate 46 L Pulse Rate [Pulse Oximeter] Respiratory Rate 16 Blood Pressure 104/66 Blood Pressure [Le ft Arm] Pulse Oximetry Oxygen Delivery [facility] 04/26/23 18:10 04/26/23 18:25 04/26/23 18:25 Temperature Pulse Rate 64 Pulse Rate [Pulse Oximeter] Respiratory Rate 16 Blood Pressure 96/57 L Blood Pressure [Le ft Arm] Pulse Oximetry Oxygen Delivery [facility] 04/26/23 18:25 04/26/23 19:45 04/26/23 23:40 Temperature 98.4 F 97.9 F 98.0 F Pulse Rate Pulse Rate [Pulse Oximeter] 55 L Respiratory Rate 16 16 16 Blood Pressure Blood Pressure [Le ft Arm] 82/51 L 90/57 L Pulse Oximetry 97 97 Oxygen Delivery [facility] Room Air Room Air 04/27/23 04:30 Temperature 98.1 F Pulse Rate Pulse Rate [Pulse Oximeter] 55 L Respiratory Rate 16 Blood Pressure Blood Pressure [Le ft Arm] 84/48 L Pulse Oximetry 97 Oxygen Delivery [facility] Room Air Documenting provider has reviewed patient's vital signs: yes OB - DS: Summary Hospital Course Hospital Course: Cesar is a 32 y.o. who was admitted to [facility] for induction of labor. ?She had an uncomplicated NVD.?The patient feels well. ?The pain is well controlled with current medications. ?She has no new complaints. ?She is breast feeding and reports things are going well, but baby is slow to latch. Instructed on how to do skin to skin to help with positioning and interest, before leaving the room helped get mother and infant doing skin to skin and baby then latched soon after.? the patient has done well.? Vitals have been stable.? She has remained afebrile.? Has a good appetite, is tolerating a general diet. ?She is voiding without difficulty.? She is passing gas and has not had a bowel movement.? She is ambulating and denies any dizziness.? Has Small amount of rubra lochia. ?She is planning IUD for prevention. Peripartum Data Infant delivery method: Vaginal Laceration description: None complications: none Infant Gender: Female Infant Discharge Plan: Home Status at Discharge Functional status at discharge: independent ambulation Overall status at discharge: patient is progressing back to baseline Time Spent with Patient Time attestation: Total time spent providing and/or coordinating discharge services: Time spent: Less than 30 minutes Discharge Plan Discharge Disposition: Home, Self-Care Date of Admission: 04/25/23 19:13 Attending Provider on Discharge: Alexis Brooks Primary Care Provider: Tatyana Watson Condition: Stable Anticipated Discharge Date/Time: 04/27/23 12:00 Discharge Medications: New acetaminophen 500 mg Tablet 1,000 mg PO Q6H PRNQty: 0 0RF docusate sodium 100 mg Capsule 100 mg PO DAILY Qty: 90 2RF ibuprofen 600 mg Tablet 600 mg PO Q6H PRNQty: 60 0RF Continued PNV #[id number] 30 mg iron-10 mg iron-1 mg capsule 1 cap PO DAILY PRN ferrous sulfate [Feosol] 325 mg (65 mg iron) tablet 325 mg PO QDAY Discontinued triamcinolone acetonide 0.5 % cream 1 applic topical BID PRN (Reason: itching) Qty: 15 0RF ondansetron 4 mg tablet,disintegrating 4 mg PO Q8H PRN (Reason: nausea and vomiting) Qty: 30 1RF Discharge Orders: Discharge Order (Routine); Ordered 04/27/23 Ordered By: Alexis Brooks Patient Education: OB Over the Counter Medication Information, OB Vaginal/Breast Feeding Additional Instructions: Discharge instructions were reviewed with the patient including signs and symptoms of infection and home going medications Nothing vaginally for 6 weeks: no tampons or intercourse Off Work or School for 6 weeks 2-week visit: discuss feeding concerns, review control options and screen for anxiety/depression. 6-week visit for an annual exam. consultation services are available to all mothers and babies for the first year after delivery.? To make an appointment, please call [phone]. Activity Level: Activity as Tolerated Discharge Diet: Regular Follow Up Appointments: [facility] [Provider Group] Forms: [facility] Info Instructions
[2023-04-27 07:26] VITALS: BP 89/55; PULSE 55; RESP 16; TEMP 36.7
[2023-04-27] MEDS: DOCUSATE SODIUM 100 MG CAPSULE PO (09:07)
[2023-04-27 12:50] VITALS: BP 87/56; PULSE 55; RESP 16; TEMP 36.6
[2023-04-27 16:22] VITALS: BP 97/61; PULSE 55; RESP 16; TEMP 36.7; O2SAT 97
== END 2023-04-27 17:18 | disposition home or self-care (01) | DRG 560 ==
LOC: OB 19:14
PROVIDERS: Advanced Practice Midwife; Obstetrics & Gynecology; Admitting Provider Advanced Practice Midwife; PCP Nurse Practitioner Family; Visit Provider Advanced Practice Midwife
DX: O36.5930 Maternal care for other known or suspected poor fetal growth, third trimester, not applicable or unspecified (principal); O76 Abnormality in fetal heart rate and rhythm complicating labor and delivery; O99.824 Streptococcus B carrier state complicating childbirth; O99.02 Anemia complicating childbirth; D64.9 Anemia, unspecified; Z3A.38 38 weeks gestation of pregnancy; Z37.0 Single live birth
CPT/HCPCS: 36415; 59200; 85025; 86850; 86900; 86901; 88307; G0463; A9270; J0290; J2270; J2371; J2405; J7120